=== PATIENT | male | born 1960 | race Caucasian/White ===

== ENCOUNTER → 2016-07-06 | Outpatient (CLI) | payer MEDICARE, MEDICAID ==
[~2016-07-06] MED LIST: /ADVA50050 IN; /ADVA50050 INH; /DULO30CA PO; /PANT40TA OR; /ROPI1TA PO; /TIOT18INH INH; /WARF5TA PO; ACET65TA OR; ADV250INH INH; ALBUTEROL LIQ INH; AMBI10TA OR; AMIT100T PO; ASPI81TA45 OR; ASTELIN; ATEN50TA2 OR; ATEN50TA2 PO; BABY81CH OR; BISO10TA2 PO; CLOTPOW TOP; COMBIN INH; COMBVENT; COMBVENT INH; COUM10TA OR; COUM7.5T PO; DUONSOL IN; DUONSOL INH; ENOX15SY SC; FOLI1TAB OR; FOLI1TAB86 PO; GEOD60CA OR; GEOD60CA PO; LASI40TA OR; LIDO5DIS TOP; LYRI200C OR; NAPR500T OR; NASONEX; NIAC500T OR; NIAS500T2 PO; NICO21DI4 TD; NITR0.4S SL; REME30TA OR; REQU2TAB3 PO; ROBA750T PO; SUDA30TA PO; TALWIN NX PO; TOPI100T OR; TOPI50TA OR; TRAZ100T OR; TYLETAB15 PO; TYLETAB3 OR; ULTR50TA PO; VITA-113 PO; WELL100T OR; ZIPR80CAP OR; ZYBAN PO; ZYPR15TA OR; ZYPR20TA OR; ZYPR20TA PO; coumadin PO
--- NOTE | 2016-07-06 08:52 | REP ---
Clinical: Follow up right middle lobe nodule. Comparison: 12/22/2015, 01/25/2012. Findings: The subtle non solid ground-glass density in the periphery of the right middle lobe (image 62) is essentially unchanged when compared to prior examination. Minimal posterior right upper lobe and left lower lobe subpleural scarring is stable compared to 2012. No further new acute consolidation, nodule or mass lesion is appreciated. No pleural effusion/reaction or pneumothorax. No adenopathy. Thoracic aorta, heart and pericardium appear relatively stable/normal. Surrounding musculoskeletal structures are intact. Upper abdomen demonstrates a 4.7 cm left adrenal mass which is predominantly low density and likely represents an adrenal adenoma although in comparison to prior examination is slightly enlarged and now demonstrates a small rounded central focus of soft tissue measuring 16 mm which may reflect small internal hemorrhage. Impression: 1. Non solid ground-glass density in the periphery of the right middle lobe remains stable and likely represents scarring. A 6-12 month follow-up may be warranted. No further acute mediastinal or pleuroparenchymal process appreciated. 2. The left adrenal adenoma has increased in size and now demonstrates a 1.6 cm central soft tissue component which may reflect internal hemorrhage. Consider 3-month follow-up pre and postcontrast CT of the abdomen. Signed by Nik Syed MD 07/06/2016 08:43 A
== END ==
LOC: M RAD 07:55
PROVIDERS: ATTEND Nurse Practitioner Family
DX: R91.1 Solitary pulmonary nodule (principal); E27.9 Disorder of adrenal gland, unspecified
CPT/HCPCS: 71250; G0463

== ENCOUNTER → 2016-09-30 | Outpatient (CLI) | payer MEDICARE, MEDICAID ==
[~2016-09-30] MED LIST changes: +ISOVUE-370 76% 100ML VIAL (Q9967) As Ordered ONE
--- NOTE | 2016-09-30 15:02 | REP ---
Clinical: Left adrenal mass for follow up. Technique: Axial precontrast, arterial, venous, and delayed phase images of the abdomen using 100 ml Isovue 370 intravenous contrast material with coronal and sagittal re-formations. Comparison: Multiple prior examinations dating through 2007. Findings: The left adrenal lesion measures approximately 5.1 by 3.6 by 4.8 cm and the subtle central area of increased density remains stable from noncontrast through delayed imaging sequences and the majority of the lesion remains low density measuring fat/fluid density by Hounsfield evaluation. Findings are compatible with known benign adrenal adenoma which may have had prior central hemorrhagic component. Liver, spleen, pancreas, gallbladder, right adrenal gland and bilateral kidneys are normal. Visualized portions of the small large bowel are unremarkable. No ascites. No free air. No obvious adenopathy. Musculoskeletal structures are intact. Lung bases are clear. Impression: Known benign left adrenal adenoma remains stable compared to prior examination, and in the absence of symptoms requires no further evaluation. Signed by Nik Syed MD 09/30/2016 02:53 P
== END ==
LOC: M RAD 13:33
PROVIDERS: ATTEND Family Medicine
DX: R93.5 Abnormal findings on diagnostic imaging of other abdominal regions, including retroperitoneum (principal)
CPT/HCPCS: 74170; Q9967

== ENCOUNTER 2016-11-01 17:14 | Emergency (ER) | payer MEDICARE, MEDICAID ==
[~2016-11-01] VITALS: Ht 177.8 cm; Wt 119.8 kg
[~2016-11-01 17:14] MED LIST changes: -ISOVUE-370 76% 100ML VIAL (Q9967) As Ordered ONE; +LYRI200C PO
[2016-11-01] MEDS ORDERED: XARE20TA PO (17:40)
[2016-11-01] MEDS ORDERED: BREO1INH3 INH (17:40)
[2016-11-01] MEDS ORDERED: BUPR15TA PO (17:40)
[2016-11-01] MEDS ORDERED: ASPI1TAB15 PO (17:40)
[2016-11-01] MEDS ORDERED: NIAC1TAB PO (17:40)
[2016-11-01] MEDS ORDERED: SERT-138 PO (17:40)
[2016-11-01] MEDS ORDERED: INVE234I IM (17:40)
[2016-11-01] MEDS ORDERED: ATOR40TA75 PO (17:40)
--- NOTE | 2016-11-01 18:20 | REPUSA ---
CT of the lumbar spine without contrast Clinical history: Pain. Technique: Multiple axial CT images were obtained through the lumbar spine without administration of contrast. Coronal and sagittal 3-D reconstructed images were also obtained. Findings: The lumbar vertebral bodies are in satisfactory positioning and alignment. No fractures or dislocatio ns are demonstrated. Intervertebral disc spaces are well-maintained. There is no evidence of facet lwo bluxation. The neural foramen appear grossly patent. The spinal canal demonstrates normal caliber and contour without evidence of spinal stenosis. The surrounding soft tissues are within normal limits. Impression: Unremarkable CT examination of the lumbar spine.
[2016-11-01] MEDS ORDERED: PRED20TA PO (19:01)
[2016-11-01] MEDS ORDERED: ROBA500T PO (19:01)
[2016-11-01 19:06] VITALS: BP 131/81
== END 2016-11-01 19:08 | disposition home or self-care (01) ==
LOC: M ED 18:21
DX: M54.41 Lumbago with sciatica, right side (principal); I10 Essential (primary) hypertension; E78.00 Pure hypercholesterolemia, unspecified; J45.909 Unspecified asthma, uncomplicated; F41.9 Anxiety disorder, unspecified; F31.9 Bipolar disorder, unspecified; K57.90 Diverticulosis of intestine, part unspecified, without perforation or abscess without bleeding; F17.200 Nicotine dependence, unspecified, uncomplicated; Z95.1 Presence of aortocoronary bypass graft; Z86.718 Personal history of other venous thrombosis and embolism; Z86.69 Personal history of other diseases of the nervous system and sense organs; Z79.82 Long term (current) use of aspirin; Z79.899 Other long term (current) drug therapy; Z88.5 Allergy status to narcotic agent; Z91.041 Radiographic dye allergy status

== ENCOUNTER 2016-12-21 14:24 | Inpatient (IN) | payer MEDICARE, MEDICAID ==
[~2016-12-21] VITALS: Ht 175.3 cm; Wt 119.6 kg
[~2016-12-21 14:24] MED LIST changes: +ASPI1TAB15 PO; +ATOR40TA75 PO; +BREO1INH3 INH; +BUPR15TA PO; +INVE234I IM; +NIAC1TAB PO; +PRED20TA PO; +ROBA500T PO; +SERT-138 PO; +XARE20TA PO
[2016-12-21] MEDS ORDERED: ASPIRIN 81 MG CHEW TABLET PO ONE (15:45)
[2016-12-21 15:47] LABS: BASO # 0.1 K/mm3 (0.0-0.2); BASO % 1.2 % (0.0-1.0); EOS # 0.2 K/mm3 (0.0-0.50); LARGE UNSTAINED CELL # 0.2 K/mm3 (0.0-0.4); LARGE UNSTAINED CELL % 1.9 % (0.0-4.0); LYMPH # 2.4 K/mm3 (1.5-4.5); LYMPH % 25.4 % (24.0-44.0); MEAN CORPUSCULAR HEMOGLOBIN 31.4 pg (27.0-33.0); MEAN CORPUSCULAR HGB CONC 33.7 g/dl (32.0-36.5); MEAN CORPUSCULAR VOLUME 93.3 fl (80.0-96.0); MONO # 0.5 K/mm3 (0.0-0.8); MONO % 5.8 % (0.0-5.0); NEUTROPHILS # 5.9 K/mm3 (1.8-7.7); NEUTROPHILS % 63.6 % (36.0-66.0); PLATELET COUNT, AUTOMATED 185 k/mm3 (150-450); RED CELL DISTRIBUTION WIDTH 13.5 % (11.5-14.5); WHITE BLOOD COUNT 9.2 K/mm3 (4.0-10.0)
[2016-12-21] MEDS: NITROGLYCERIN 0.4 MG SUBL TABLET SL PRN ×3 (15:56→16:35)
[2016-12-21 15:57] LABS: ALBUMIN 3.5 GM/DL (3.2-5.2); ALBUMIN/GLOBULIN RATIO 0.83 (1.00-1.93); ALKALINE PHOSPHATASE 127 U/L (45-117); ALT/SGPT 20 U/L (12-78); ANION GAP 7 MEQ/L (8-16); AST/SGOT 18 U/L (15-37); BILIRUBIN,DIRECT < 0.1 MG/DL (0.0-0.2); BILIRUBIN,TOTAL 0.3 MG/DL (0.2-1.0); BLOOD UREA NITROGEN 6 MG/DL (7-18); CALCIUM LEVEL 9.1 MG/DL (8.5-10.1); CARBON DIOXIDE LEVEL 27 MEQ/L (21-32); CHLORIDE LEVEL 105 MEQ/L (98-107); GLOMERULAR FILTRATION RATE > 60.0 (>56); GLUCOSE, FASTING 91 MG/DL (70-105); POTASSIUM SERUM 3.8 MEQ/L (3.5-5.1); SODIUM LEVEL 139 MEQ/L (136-145); TOTAL PROTEIN 7.7 GM/DL (6.4-8.2)
--- NOTE | 2016-12-21 16:26 | REP ---
PA and lateral chest: Comparison is 02/03/2015. The lung ballesteros are clear. The cardiac size is normal The joanne, mediastinum, and bony thorax are unremarkable. Impression: Negative PA and lateral chest. There is no interval change. Signed by Alvaro Crouch MD 12/21/2016 04:17 P
[2016-12-21] MEDS ORDERED: MORPHINE 4 MG/ML 1ML SYRINGE IV ONE (17:00)
[2016-12-21] MEDS ORDERED: RIVAROXABAN 20 MG TAB (XARELTO) PO ONE (17:00)
[2016-12-21] MEDS ORDERED: RIVAROXABAN 20 MG TAB (XARELTO) PO SCH (18:00)
[2016-12-21] MEDS ORDERED: IPRATROPIUM 0.5MG/ALBUTEROL 2.5MG INH SOL UD 3ML (DUONEB)(J7620) NEB ONE (20:30)
--- NOTE | 2016-12-21 20:34 | ECGEPIP ---
Stationary ECG Study [facility] - ED Test Date: 2016-12-21 Pat Name: CORBY HILL Department: Room: - Gender: M I O Psychologist: mercy : 1960 Requested By: ABRAHAM Martinez Order Number: [id number] Reading MD: Javid Stroud Measurements Intervals [place] Rate: 97 P: 17 GA: 152 QRS: -24 QRSD: 115 T: 26 QT: 353 QTc: 449 Interpretive Statements SINUS RHYTHM BORDERLINE LEFT AXIS DEVIATION LOW QRS VOLTAGE IN PRECORDIAL LEADS INCOMPLETE RIGHT BUNDLE BRANCH BLOCK NONSPECIFIC T-WAVE ABNORMALITY CW 06/27/13 RATE INCREASED Electronically Signed On 12-21-2016 20:34:05 EDT by Javid Stroud
--- NOTE | 2016-12-21 20:41 | ECGEPIP ---
Stationary ECG Study [facility] - ED Test Date: 2016-12-21 Pat Name: CORBY HILL Department: Room: - Gender: M Template Reproduction Technician: kenneth : 1960 Requested By: ABRAHAM Martinez Order Number: [id number] Reading MD: Javid Stroud Measurements Intervals [place] Rate: 71 P: 16 DC: 152 QRS: -17 QRSD: 117 T: 7 QT: 404 QTc: 439 Interpretive Statements SINUS RHYTHM LOW QRS VOLTAGE IN PRECORDIAL LEADS INCOMPLETE RIGHT BUNDLE BRANCH BLOCK LEFTWARD AXIS DELAYED R WAVE PROGRESSION NONSPECIFIC ST T WAVE CHANGES CW 12/21/16 RATE DEREASED Electronically Signed On 12-21-2016 20:41:02 EDT by Javid Stroud
[2016-12-21] MEDS ORDERED: ASPIRIN 81 MG ENTERIC TAB PO SCH (21:00)
[2016-12-21] MEDS ORDERED: ONDANSETRON 4MG/2ML VIAL (J2405) IV PRN (22:30)
[2016-12-21] MEDS ORDERED: ACETAMINOPHEN TAB 650MG DOSE (2X325MG) PO PRN (22:30)
[2016-12-21] MEDS ORDERED: LYRI300C PO (23:09)
[2016-12-21] MEDS ORDERED: COMBAER6 INH (23:09)
[2016-12-21] MEDS ORDERED: INCR1INH INH (23:09)
[2016-12-21] MEDS ORDERED: NITR4TASL SL (23:09)
[2016-12-21] MEDS ORDERED: ASPI81TAEC PO (23:09)
[2016-12-21] MEDS ORDERED: MIRT15TA3 PO (23:09)
[2016-12-21] MEDS ORDERED: FOLI1TAB4 PO (23:09)
[2016-12-21] MEDS ORDERED: ROPI2TAB PO (23:09)
[2016-12-21] MEDS ORDERED: FURO40TA2 PO (23:09)
[2016-12-21] MEDS ORDERED: SUCRALFATE 1 GM TAB PO ONE (23:15)
[2016-12-21] MEDS ORDERED: PANTOPRAZOLE 40MG TAB (PROTONIX) PO ONE (23:15)
[2016-12-21] MEDS ORDERED: rOPINIRole 1MG TAB PO PRN (23:30)
[2016-12-22] VITALS (8 sets, daily range): BP systolic 118–152; BP diastolic 58–99
[2016-12-22] MEDS: ATORVASTATIN 20 MG TAB PO SCH ×2 (00:31→20:29)
[2016-12-22] MEDS: PREGABALIN 100 MG CAP (LYRICA) PO SCH ×3 (00:32→20:28)
[2016-12-22] MEDS: SERTRALINE 100 MG TAB PO SCH ×2 (00:34→20:30)
[2016-12-22] MEDS: MIRTAZAPINE 15 MG TAB PO SCH ×2 (00:47→20:30)
[2016-12-22] MEDS: NITROGLYCERIN 0.4 MG SUBL TABLET SL PRN ×3 (01:16→01:32)
[2016-12-22] MEDS: NIACIN SR (NIASPAN) 500 MG TAB PO SCH ×2 (01:37→20:28)
[2016-12-22] MEDS: MORPHINE 2 MG/ML 1ML SYRINGE IV PRN ×4 (03:03→20:27)
--- NOTE | 2016-12-22 03:15 | HPE ---
DATE OF ADMISSION: 12/21/2016 PRIMARY CARE PROVIDER: Janes Hickman MD. LINE SERVICER: Dr. Romero Inpatient [facility] Provider: Dr. Toña Wilde CHIEF COMPLAINT: Chest pain. HISTORY OF PRESENT ILLNESS: 56-year-old male, past medical history significant for coronary artery disease (CAD), myocardial infarction (AR), follows at the [facility] with Dr. Romero, chronic obstructive pulmonary disease (COPD), follows with Dr. Reyes, obstructive sleep apnea (JOANNE) on continuous positive airway pressure (CPAP),hypertension,GERD, obesity, fasting glucose intolerance, hypercholesterolemia, tobacco abuse, recurrent polysubstance abuse including marijuana, cocaine, crack cocaine, heroin, ecstasy, prescription opioids, b/l pulmonary embolism 2011 on chronic anticoagulation, presents to the emergency room with 2-day complaint of substernal left-sided chest pain radiating down the left arm lasting for hours, shortness of breath, while patient was sitting at home after having coffee,described as as sharp across the epigastrium, pleuritic, nonexertional, and reproducible, lasting all day long without diaphoresis, feeling of impending doom, fever, chills, paroxysmal nocturnal dyspnea (PND), orthopnea, or changes in weight. No meds were taken at home for this pain, and adamantly denies taking over the counter meds, cocaine, crack, or any other recreational drugs prior to presentation. Per hospital records, previous coronary angiogram 2013 was unremarkable, and per the patient, more recent cath done in the past 1-2 yrs shows no sigificant change. He admits to chronic heartburn, and has been on aspirin since his AR years ago, and chronic anticoagulation for his bilateral pulmonary embolism (PE) since 2011, but denies any dysphagia or odynophagia, weight gain or weight loss. He admits having occasional black tarry stools with normal hemoglobin., but has refused colonoscopy in the past. Despite having a history of alcohol abuse, he denies hematemesis, bright red blood per rectum. In the ER, patient had some relief with nitroglycerin and morphine, but sharp pains are persistent with no acute ischemia on EKG only right bundle branch block, sinus rhythm, ventricular rate of 71 and negative troponins x 2 sets. Chest x-ray has no acute changes, no infiltrates, consolidation, edema or pleural effusions. Hospitalist service was asked to admit for evaluation of chest pain and observation on telemetry overnight. PAST MEDICAL HISTORY: 1. Pulmonary embolism. 2. Left adrenal adenoma. 3. L3, L4 disc bulges with mild central canal stenosis at L4-L5. 4. Obstructive sleep apnea on CPAP. 5. CAD, AR. 6. PE 2011. 7. Chronic back pain. 8. Hypertension. 9. Reflux. 10. Diverticulosis. 11. RLS. 12. Obesity. 13. Fasting glucose intolerance. 14. Hypercholesterolemia. 15. Recurrent polysubstance abuse with marijuana, cocaine, heroin, ecstasy, prescription opioids. 16. Diverticulitis. 17. Depression. 18. Folic acid deficiency. ALLERGIES: CONTRAST causing respiratory distress. PAST SURGICAL HISTORY: 1. Appendectomy. 2. Tonsillectomy. 3. Right inguinal herniorrhaphy. 4. Right lower extremity thrombectomy. 5. Refused colonoscopy. FAMILY HISTORY: Father alive age 82 with hypertension, hyperlipidemia, CAD, AR, CVA. Mother alive age 75 with hypertension, RLS, edema, lipids. Seven sisters, one with cervical cancer, others are healthy. Three brothers, one at 22 months. SOCIAL HISTORY: Smoker, tried to quit 05/13/2016. History of alcohol abuse and recreational drug use, none in the past few months. HOME MEDICATIONS: - Combivent Respimat 20/100 mcg two puffs inhaled four times a day as needed - aspirin 81 mg daily - atorvastatin 40 mg nightly - bupropion Wellbutrin SR 150 mg twice a day - folic acid 1 mg daily - Lasix 40 mg twice a day - mirtazapine 15 mg nightly - niacin 500 mg nightly - nitroglycerin 0.4 mg as needed for chest pain - Lyrica 300 mg twice a day - Xarelto 20 mg every evening - ropinirole 2 mg tablets as needed for restlessness - sertraline 100 mg nightly - Breo Ellipta one puff inhaled daily - Incruse Ellipta 62.5 mcg inhaled daily REVIEW OF SYSTEMS: 12 point systems review obtained. positive findings per HPI. PHYSICAL EXAMINATION: VITAL SIGNS: Temperature 98, pulse 86, respiratory rate 16, blood pressure 131/87, 97% on room air. GENERAL: Patient is awake, alert, oriented times three, answering questions appropriately. Anicteric sclerae. No jaundice. Pupils equally round, reactive to light, accomodation. Extraocular muscles are intact. Normocephalic, atraumatic. Moist mucous membranes. No cervical lymphadenopathy or thyromegaly or pharyngeal erythema. LUNGS: Clear to auscultation. No wheezing, rales or rhonchi. HEART: S1, S2, sinus rhythm. No murmurs, rubs or gallops. ABDOMEN: Soft. Positive bowel sounds times four quadrants. Obese abdomen. Slightly tender epigastric area. Palpable tenderness left anterior chest. EXTREMITIES: No cyanosis or clubbing. SKIN: Warm, dry, well perfused, multiple tattoos bilateral upper and lower extremities. EKG sinus rhythm, ventricular rate of 71, right bundle branch block, which is chronic. LABORATORY DATA: White count 9.2, hemoglobin 15, hematocrit 44, platelet count 185, 63% neutrophils. Sodium 139, potassium 3.8, chloride 105, bicarbonate 27, BUN 6, creatinine 1, glucose 91, calcium 9.1 total bilirubin 0.3, direct bilirubin less than 0.1, AST 18, ALT 20, alkaline phosphatase 127 total CK 99, MB fraction 1, troponin less than 0.02. Repeat cardiac markers total CK of 78, MB fraction 1, troponin less than 0.02, BNP 7.8, total protein 7.7, albumin 3.5, lipase of 123. IMAGING STUDIES: Chest x-ray negative PA and lateral chest. There is no interval change. ASSESSMENT AND PLAN: This is a 56-year-old male with history of pulmonary embolism on chronic Xarelto, coronary artery disease (CAD), myocardial infarction (AR), chronic back pain, chronic obstructive pulmonary disease (COPD), obstructive sleep apnea (JOANNE) on continuous positive airway pressure (CPAP), hypertension, reflux, diverticulosis, diverticulitis, restless legs syndrome (RLS), obesity, fasting glucose intolerance, left adrenal adenoma, hypercholesterolemia, tobacco abuse, recurrent polysubstance abuse with marijuana, cocaine, heroin, ecstasy, prescription opioids, presents to the emergency room with a 2-day history of sharp pleuritic chest pain across the epigastric region, left anterior chest while drinking his coffee. Appears to be pleuritic. The patient will be admitted for observation and will be assigned to Dr. Toña Salter who will assume care of this patient on 12/22/2016 at 7 a.m. for the following issues: 1. Atypical chest pain. Patient's chest pain by history does not appear to be typical of anginal symptoms. He describes pleuritic chest pain, sharp, worse with meals with prior history of reflux disease and currently with risk factors of aspirin and chronic anticoagulation with Xarelto for his chronic pulmonary embolism (PE). Suspicious for possible gastrointestinal (GI) etiology. Patient has been compliant with his medications. Unlikely to be secondary to pulmonary embolism. However, with prior history of CAD/AR, will admit to telemetry for 24-hour monitoring. Continue with his aspirin, Lipitor. Currently not on beta blockers. Will obtain records from Dr. Romero's office, [facility]. Most likely secondary due to COPD. Rule out GI causes with upper GI series in the morning. Therefore, nothing by mouth after midnight. Empiric treatment with proton pump inhibitor (PPI), Protonix 40 twice a day and Carafate. Check Helicobacter (H) pylori antibodies. Patient is at risk for gastritis due to prior history of alcohol and current use of anticoagulation, but has refused colonoscopy and esophagogastroduodenoscopy (EGD) in the past. 2. History of CAD/AR. Obtain records from Dr. Romero's office regarding medication list. Resume all home medications. Cycle cardiac markers. 12-lead EKG in the morning. Continue on telemetry. Nitroglycerin as needed for recurrent chest pains. 3. COPD. Continue home inhalers. On Breo Ellipta and Incruse Ellipta. 4. Obstructive sleep apnea. May resume CPAP at home settings. 5. Obesity, outpatient mgt. continue statins and check lipid panel 6. History of bilateral pulmonary embolism (PE). Continue on anticoagulation with Xarelto. Patient has been compliant. 7. History of left adrenal adenoma. Outpatient followup. 8. Chronic neck and back pain. Obtain x-rays. Monitor clinically. Outpatient followup with pain specialist. 9. Depression. Continue Wellbutrin. 10. HTN, controlled.on no beta blockers . obtain records from Primary care physician. 11. History of recreational drug use with crack, cocaine, marijuana, and opioid use. Patient currently denies recreational drug use. Check Urine toxicology screen. Avoid beta blockers if positive for cocaine. 12. History of ETOH abuse. last drink was years ago. DVT prophylaxis: on chronic xarelto for bilateral PE. Patient will be signed out to Dr. Toña Wilde at 0700 12/22/16 [facility]. [facility]
[2016-12-22 05:41] LABS: BASO # 0.1 K/mm3 (0.0-0.2); BASO % 0.9 % (0.0-1.0); EOS # 0.2 K/mm3 (0.0-0.50); EOS % 2.9 % (0.0-3.0); LARGE UNSTAINED CELL # 0.1 K/mm3 (0.0-0.4); LARGE UNSTAINED CELL % 2.1 % (0.0-4.0); LYMPH # 2.1 K/mm3 (1.5-4.5); LYMPH % 29.5 % (24.0-44.0); MEAN CORPUSCULAR HEMOGLOBIN 30.6 pg (27.0-33.0); MEAN CORPUSCULAR VOLUME 92.8 fl (80.0-96.0); MONO # 0.6 K/mm3 (0.0-0.8); MONO % 9.5 % (0.0-5.0); NEUTROPHILS # 3.6 K/mm3 (1.8-7.7); NEUTROPHILS % 55.1 % (36.0-66.0); PLATELET COUNT, AUTOMATED 198 k/mm3 (150-450); RED CELL DISTRIBUTION WIDTH 13.8 % (11.5-14.5); WHITE BLOOD COUNT 6.6 K/mm3 (4.0-10.0)
[2016-12-22 06:04] LABS: ANION GAP 9 MEQ/L (8-16); BLOOD UREA NITROGEN 8 MG/DL (7-18); CALCIUM LEVEL 8.8 MG/DL (8.5-10.1); CARBON DIOXIDE LEVEL 27 MEQ/L (21-32); CHLORIDE LEVEL 106 MEQ/L (98-107); CREATININE FOR GFR 0.94 MG/DL (0.70-1.30); GLOMERULAR FILTRATION RATE > 60.0 (>56); GLUCOSE, FASTING 113 MG/DL (70-105); POTASSIUM SERUM 3.8 MEQ/L (3.5-5.1); SODIUM LEVEL 142 MEQ/L (136-145)
[2016-12-22 07:32] LABS: METHADONE URINE NEGATIVE (NEGATIVE)
[2016-12-22] MEDS: FUROSEMIDE 40 MG TAB PO SCH ×2 (08:52→20:30)
[2016-12-22] MEDS: SUCRALFATE 1 GM TAB PO SCH ×4 (08:52→20:41)
[2016-12-22] MEDS: buPROPion **SR TABLET** (ZYBAN) 150MG PO SCH ×2 (08:52→20:28)
[2016-12-22] MEDS: PANTOPRAZOLE 40MG TAB (PROTONIX) PO SCH ×2 (08:54→20:29)
[2016-12-22] MEDS: FOLIC ACID 1 MG TAB PO SCH (08:55)
[2016-12-22] MEDS: BREO ELLIPTA INH SCH (09:00)
--- NOTE | 2016-12-22 09:41 | REP ---
Thoracic spine two views: Comparison is 01/14/2012. Vertebral body heights and alignment are normal and unchanged. There is degenerative disc disease at several levels in the mid thoracic spine. The disc spaces are otherwise unremarkable. Mineralization is normal. The pedicles are unremarkable. Signed by Alvaro Crouch MD 12/22/2016 07:40 A
--- NOTE | 2016-12-22 09:41 | REP ---
Cervical spine four views AP and lateral projections: There are no comparisons. 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 The C2-C3 posterior elements are congenitally fused. There is degenerative disc disease at C for five and C5-6. Vertebral body heights and alignment are normal. Facets are normally aligned. Prevertebral soft tissues are normal. The odontoid view is unremarkable. Impression: Degenerative disc disease as described. C2-C3 congenital fusion posteriorly and anteriorly. Signed by Alvaro Crouch MD 12/22/2016 07:39 A
--- NOTE | 2016-12-22 09:54 | IPNPDOC ---
Subjective Date Seen The patient was seen on 12/22/16. Subjective Chief Complaint/HPI The patient is a 56-year-old male admitted with a reason for visit of Chest Pain. Events since last encounter Pt states still with intermittant CP and SOB, although currently improved. Improved with morphine. Denies Abd pain. Constitutional: Denies: Chills, Fever Pulmonary: Reports: Dyspnea Cardiovascular: Reports: Chest Pain Gastrointestinal: Denies: Nausea, Vomiting, Abdominal Pain Objective Physical Examination General Exam: Positive: Alert, No Acute Distress Neck Exam: Positive: Supple, Negative: JVD Chest Exam: Positive: Clear to auscultation, Other (diffuse tenderness to palpation lower chest L>R) Heart Exam: Positive: Rate Normal, Regular Rhythm Abdomen Exam: Positive: Normal bowel sounds, Soft, Negative: Tenderness Extremity Exam: Negative: Edema Assessment /Plan Problems (1) Chest pain Status: Acute Problem Specific Plan: Monitor Clinically, Repeat Labs Problem Text: 12/22 - H/O CAD/MD. Cardiac enzymes/Trops negative. On Telemetry. On Aspirin and Lipitor. H/O PE. On Xarelto. H/O reflux. Upper GI was ordered. Getting Protonix 40 mg BID and Carafate QID. (2) CAD (coronary artery disease) Status: Chronic Problem Specific Plan: Monitor Clinically, Repeat Labs Problem Text: 12/22 - H/O CAD/MD. Cardiac enzymes/Trops negative. On Telemetry. On Aspirin and Lipitor. (3) Hx pulmonary embolism Status: Chronic Problem Specific Plan: Monitor Clinically, Repeat Labs Problem Text: 12/22 - H/O PE. On Xarelto. (4) COPD (chronic obstructive pulmonary disease) Status: Chronic Problem Specific Plan: Monitor Clinically Problem Text: On Breo and Incruse. (5) JOANNE (obstructive sleep apnea) Status: Chronic Problem Specific Plan: Monitor Clinically Problem Text: CPAP (6) Depression Status: Chronic Problem Specific Plan: Monitor Clinically Problem Text: On Wellbutrin and Zoloft. (7) Adrenal adenoma Status: Chronic Problem Specific Plan: Monitor Clinically (8) HTN (hypertension) Status: Chronic Problem Specific Plan: Monitor Clinically Problem Text: On Lasix (9) H/O: substance abuse Status: Chronic Problem Specific Plan: Monitor Clinically Plan/VTE VTE Prophylaxis Ordered?: Yes VS, I&O, 24H, Fishbone Vital Signs/I&O Vital Signs Date Time Temp Pulse Resp B/P (MAP) Pulse Ox O2 Delivery O2 Flow Rate FiO2 12/22/16 08:43 16 Room Air 12/22/16 07:35 97.4 78 133/87 (102) 96 12/22/16 04:45 2.0 I&O- Last 24 Hours up to 6 AM 12/22/16 06:00 Intake Total 0 ml Output Total 550 ml Balance -550 ml Laboratory Data 24H LABS Laboratory Tests 2 12/21/16 14:39: White Blood Count 9.2, Red Blood Count 4.76, Hemoglobin 15.0, Hematocrit 44.4, Mean Corpuscular Volume 93.3, Mean Corpuscular Hemoglobin 31.4, Mean Corpuscular Hemoglobin Concent 33.7, Red Cell Distribution Width 13.5, Platelet Count 185, Neutrophils (%) (Auto) 63.6, Lymphocytes (%) (Auto) 25.4, Monocytes ( %) (Auto) 5.8H, Eosinophils (%) (Auto) 2.0, Basophils (%) (Auto) 1.2H, Neutrophils # (Auto) 5.9, Lymphocytes # (Auto) 2.4, Monocytes # (Auto) 0.5, Eosinophils # (Auto) 0.2, Basophils # (Auto) 0.1, Large Unclassified Cells % 1.9 , Large Unclassified Cells # 0.2, Prothrombin Time 13.3, Prothromb Time International Ratio 1.00, Activated Partial Thromboplast Time 31.5, D-Dimer, Quantitative 307.8, Anion Gap 7L, Glomerular Filtration Rate > 60.0, Calcium Level 9.1, Aspartate Amino Transf (AST/SGOT) 18, Alanine Aminotransferase (ALT/ SGPT) 20, Alkaline Phosphatase 127H, Total Bilirubin 0.3, Direct Bilirubin < 0.1 , Total Creatine Kinase 99, Creatine Kinase MB 1.0, Creatine Kinase MB Relative Index 1.01, Troponin I < 0.02, B-Type Natriuretic Peptide 7.8, Total Protein 7.7 , Albumin 3.5, Albumin/Globulin Ratio 0.83L, Lipase 123 12/21/16 20:24: Total Creatine Kinase 78, Creatine Kinase MB 1.0, Creatine Kinase MB Relative Index 1.28, Troponin I < 0.02 12/22/16 00:21: Total Creatine Kinase 84, Creatine Kinase MB 1.0, Creatine Kinase MB Relative Index 1.19, Troponin I < 0.02 12/22/16 05:16: White Blood Count 6.6, Red Blood Count 4.75, Hemoglobin 14.6, Hematocrit 44.1, Mean Corpuscular Volume 92.8, Mean Corpuscular Hemoglobin 30.6, Mean Corpuscular Hemoglobin Concent 33.0, Red Cell Distribution Width 13.8, Platelet Count 198, Neutrophils (%) (Auto) 55.1, Lymphocytes (%) (Auto) 29.5, Monocytes ( %) (Auto) 9.5H, Eosinophils (%) (Auto) 2.9, Basophils (%) (Auto) 0.9, Neutrophils # (Auto) 3.6, Lymphocytes # (Auto) 2.1, Monocytes # (Auto) 0.6, Eosinophils # (Auto) 0.2, Basophils # (Auto) 0.1, Large Unclassified Cells % 2.1 , Large Unclassified Cells # 0.1, Anion Gap 9, Glomerular Filtration Rate > 60.0 , Calcium Level 8.8, Total Creatine Kinase 75, Creatine Kinase MB 1.4, Creatine Kinase MB Relative Index 1.86, Troponin I < 0.02, Blood Urea Nitrogen 8, Creatinine 0.94, Sodium Level 142, Potassium Level 3.8, Chloride Level 106, Carbon Dioxide Level 27 12/22/16 06:50: Urine Amphetamines Screen NEGATIVE, Urine Benzodiazepines Screen NEGATIVE, Urine Opiates Screen POSITIVEH, Urine Methadone Screen NEGATIVE, Urine Barbiturates Screen NEGATIVE, Urine Phencyclidine Screen NEGATIVE, Urine Cocaine Metabolite Screen NEGATIVE, Urine Cannabinoids Screen NEGATIVE CBC/BMP Laboratory Tests 12/21/16 14:39 Red Blood Count 4.76, Mean Corpuscular Volume 93.3, Mean Corpuscular Hemoglobin 31.4, Mean Corpuscular Hemoglobin Concent 33.7, Red Cell Distribution Width 13.5 , Neutrophils (%) (Auto) 63.6, Lymphocytes (%) (Auto) 25.4, Monocytes (%) (Auto ) 5.8 H, Eosinophils (%) (Auto) 2.0, Basophils (%) (Auto) 1.2 H, Neutrophils # ( Auto) 5.9, Lymphocytes # (Auto) 2.4, Monocytes # (Auto) 0.5, Eosinophils # (Auto ) 0.2, Basophils # (Auto) 0.1 12/22/16 05:16 Red Blood Count 4.75, Mean Corpuscular Volume 92.8, Mean Corpuscular Hemoglobin 30.6, Mean Corpuscular Hemoglobin Concent 33.0, Red Cell Distribution Width 13.8 , Neutrophils (%) (Auto) 55.1, Lymphocytes (%) (Auto) 29.5, Monocytes (%) (Auto ) 9.5 H, Eosinophils (%) (Auto) 2.9, Basophils (%) (Auto) 0.9, Neutrophils # ( Auto) 3.6, Lymphocytes # (Auto) 2.1, Monocytes # (Auto) 0.6, Eosinophils # (Auto ) 0.2, Basophils # (Auto) 0.1, Calcium Level 8.8, Total Creatine Kinase 75 Reid Montejo RPA-Mera Dec 22, 2016 09:54
[2016-12-22 11:08] LABS: CONTROL LINE HPYORI INT CTR LINE PRESENT
[2016-12-22] MEDS ORDERED: E-Z-GAS II EFFERVESCENT PACKET (SODIUM BICARB./CITRIC ACID/SIMETHICONE) As Ordered ONE (13:02)
[2016-12-22] MEDS ORDERED: E-Z-PAQUE 96% w/w SUSP 176GM BTL As Ordered ONE (13:02)
[2016-12-22] MEDS ORDERED: E-Z-HD 98% w/w 340GM SUSP BTL As Ordered ONE (13:02)
[2016-12-22] MEDS ORDERED: ALBUTEROL SULFATE 2.5 MG/0.5 ML INH NEB SOLN NEB PRN (16:45)
[2016-12-22] MEDS ORDERED: RIVAROXABAN 20 MG TAB (XARELTO) PO SCH (18:00)
--- NOTE | 2016-12-22 19:09 | REP ---
UPPER GI, AIR CONTRAST AND SMALL BOWEL FOLLOW THROUGH: The procedure was performed under the direct supervision of Dr. Oleary. The images were reviewed with Dr. Oleary. The hand mixer film shows no organomegaly or pathological masses. The intestinal gas pattern is nonspecific. Liquid barium and gas-producing granules were given in the erect position as well as liquid barium in the prone oblique positions in order to perform a double contrast upper GI examination. Additionally, liquid barium was given at the end of the examination in order to perform a small bowel follow through. The oral and pharyngeal stages of deglutition are unremarkable. Esophageal transport is prompt and efficient and there is no esophagitis, stricture, mucosal ring or hiatal hernia. Gastroesophageal reflux is not demonstrated on this examination. The stomach galloway are normally outlined. The rugal folds are smooth and regular. There is no gastritis, neoplasm or ulcer disease. The duodenal galloway are normally outlined. The mucosal folds are smooth and regular. There is no duodenitis, pancreatitis, peptic ulcer disease or neoplasm. The visualized portion of the proximal small bowel appears normal in course and caliber. The barium column was followed through the small bowel to the level of the terminal ileum. Small bowel transit time was approximately 30 minutes. During fluoroscopy, gentle palpation shows all loops are freely movable and pliable. There are no fixed or angulated loops. The small bowel mucosal pattern is normal in course and caliber. There is no transition to suggest a partial small bowel obstruction. Spot filming of the terminal ileum shows it to be unremarkable. IMPRESSION: Essentially unremarkable double contrast upper GI and small bowel follow through examination. 2 minutes and 45 seconds of fluoroscopy time was utilized for this procedure. Reviewed by LOUISA Morrow 12/23/2016 05:11 PEdited and Signed by Alvaro Oleary MD 12/23/2016 05:21 P
[2016-12-22] MEDS: LIDOCAINE 5% (LIDODERM) PATCH TD SCH (20:28)
[2016-12-22] MEDS: ASPIRIN 81 MG ENTERIC TAB PO SCH (20:29)
[2016-12-22] MEDS: predniSONE 50 MG TAB PO SCH (21:18)
--- NOTE | 2016-12-22 21:44 | ECGEPIP ---
Stationary ECG Study [facility] Test Date: 2016-12-22 Pat Name: CORBY HILL Department: Room: [place] [address] Gender: M Wash Barrel Leader: MARY : 1960 Requested By: CHERRY Hernandez Order Number: [id number] Reading MD: Anupam Arreola Measurements Intervals [place] Rate: 79 P: 20 SD: 155 QRS: -14 QRSD: 115 T: 18 QT: 389 QTc: 448 Interpretive Statements SINUS RHYTHM LEFT AXIS DEVIATION INTRAVENTRICULAR CONDUCTION DELAY/RIGHT BUNDLE BRANCH BLOCK PATTERN LOW-VOLTAGE QRS COMPLEXES IN THE CHEST LEADS LAST TRACING ON 12/21/2016 AT 20:23:10, NO SIGNIFICANT CHANGES Electronically Signed On 12-22-2016 21:44:12 EDT by Anupam Arreola
[2016-12-23] MEDS: MORPHINE 2 MG/ML 1ML SYRINGE IV PRN ×4 (00:58→21:31)
[2016-12-23] MEDS: predniSONE 50 MG TAB PO SCH ×2 (03:51→10:35)
[2016-12-23 04:00] VITALS: BP 117/80
[2016-12-23 05:37] LABS: BASO % 0.6 % (0.0-1.0); EOS % 0.5 % (0.0-3.0); LARGE UNSTAINED CELL # 0.1 K/mm3 (0.0-0.4); LARGE UNSTAINED CELL % 0.7 % (0.0-4.0); LYMPH # 0.9 K/mm3 (1.5-4.5); LYMPH % 12.1 % (24.0-44.0); MEAN CORPUSCULAR HGB CONC 32.8 g/dl (32.0-36.5); MEAN CORPUSCULAR VOLUME 94.6 fl (80.0-96.0); MONO # 0.2 K/mm3 (0.0-0.8); MONO % 3.1 % (0.0-5.0); NEUTROPHILS # 5.6 K/mm3 (1.8-7.7); NEUTROPHILS % 82.9 % (36.0-66.0); PLATELET COUNT, AUTOMATED 185 k/mm3 (150-450); RED CELL DISTRIBUTION WIDTH 13.7 % (11.5-14.5); WHITE BLOOD COUNT 6.7 K/mm3 (4.0-10.0)
[2016-12-23 05:48] LABS: ANION GAP 5 MEQ/L (8-16); BLOOD UREA NITROGEN 13 MG/DL (7-18); CALCIUM LEVEL 8.8 MG/DL (8.5-10.1); CARBON DIOXIDE LEVEL 28 MEQ/L (21-32); CHLORIDE LEVEL 107 MEQ/L (98-107); CREATININE FOR GFR 1.03 MG/DL (0.70-1.30); GLOMERULAR FILTRATION RATE > 60.0 (>56); GLUCOSE, FASTING 133 MG/DL (70-105); SODIUM LEVEL 140 MEQ/L (136-145)
[2016-12-23 05:49] LABS: POTASSIUM SERUM 5.4 MEQ/L (3.5-5.1)
[2016-12-23 08:00] VITALS: BP 137/87
[2016-12-23] MEDS ORDERED: SLF 3 ML SYR IV PRN (08:45)
[2016-12-23] MEDS: buPROPion **SR TABLET** (ZYBAN) 150MG PO SCH ×2 (09:00→21:29)
[2016-12-23] MEDS ORDERED: diphenhydrAMINE 50 MG CAP PO ONE (09:00)
[2016-12-23] MEDS: **NOTE PATIENT COMMENT** MISC XX SCH (09:00)
[2016-12-23] MEDS ORDERED: INCRUSE ELLIPTA (PATIENT'S OWN MED) INH SCH (09:00)
[2016-12-23] MEDS: SUCRALFATE 1 GM TAB PO SCH ×4 (09:12→21:29)
[2016-12-23] MEDS: PANTOPRAZOLE 40MG TAB (PROTONIX) PO SCH ×2 (09:12→21:28)
[2016-12-23] MEDS: FUROSEMIDE 40 MG TAB PO SCH ×2 (09:13→21:00)
[2016-12-23] MEDS: PREGABALIN 100 MG CAP (LYRICA) PO SCH ×2 (09:14→21:29)
[2016-12-23] MEDS: FOLIC ACID 1 MG TAB PO SCH (09:14)
[2016-12-23] MEDS: BREO ELLIPTA INH SCH (09:38)
--- NOTE | 2016-12-23 11:30 | IPNPDOC ---
Subjective Date Seen The patient was seen on 12/23/16. Subjective Chief Complaint/HPI The patient is a 56-year-old male admitted with a reason for visit of Chest Pain. Events since last encounter denies further CP. going to CT chest to r/o PE this morning. Constitutional: Denies: Chills, Fever, Night Sweats ENT: Denies: Head Aches, Ear Pain, Dysphagia Pulmonary: Denies: Dyspnea, Cough Cardiovascular: Denies: Chest Pain, Palpitations, Orthopnea, Paroxysmal Noc. Dyspnea, Lt Headedness Gastrointestinal: Denies: Nausea, Vomiting, Abdominal Pain, Diarrhea, Constipation Genitourinary: Denies: Dysuria, Frequency, Incontinence, Retention Psych: Reports: Mood Normal, Denies: Depression, Memory Issues Objective Physical Examination General Exam: Positive: Alert, No Acute Distress Neck Exam: Positive: Supple, Negative: JVD Chest Exam: Positive: Clear to auscultation, Other (diffuse tenderness to palpation lower chest L>R) Heart Exam: Positive: Rate Normal, Regular Rhythm Telemetry: Positive: No significant arrhythmia Abdomen Exam: Positive: Normal bowel sounds, Soft, Negative: Tenderness Extremity Exam: Negative: Edema Assessment /Plan Problems (1) Chest pain Status: Acute Problem Specific Plan: Monitor Clinically, Repeat Labs Problem Text: 12/23/16: w/u negative. tele negative for arrhythmia. plan for CT chest to r/o PE. If negative, consider DC home. 12/22 - H/O CAD/MN. Cardiac enzymes/Trops negative. On Telemetry. On Aspirin and Lipitor. H/O PE. On Xarelto. H/O reflux. Upper GI was ordered. Getting Protonix 40 mg BID and Carafate QID. (2) CAD (coronary artery disease) Status: Chronic Problem Specific Plan: Monitor Clinically, Repeat Labs Problem Text: 12/22 - H/O CAD/MN. Cardiac enzymes/Trops negative. On Telemetry. On Aspirin and Lipitor. (3) Hx pulmonary embolism Status: Chronic Problem Specific Plan: Monitor Clinically, Repeat Labs Problem Text: 12/22 - H/O PE. On Xarelto. (4) COPD (chronic obstructive pulmonary disease) Status: Chronic Problem Specific Plan: Monitor Clinically Problem Text: On Breo and Incruse. (5) JOANNE (obstructive sleep apnea) Status: Chronic Problem Specific Plan: Monitor Clinically Problem Text: CPAP (6) Depression Status: Chronic Problem Specific Plan: Monitor Clinically Problem Text: On Wellbutrin and Zoloft. (7) Adrenal adenoma Status: Chronic Problem Specific Plan: Monitor Clinically (8) HTN (hypertension) Status: Chronic Problem Specific Plan: Monitor Clinically Problem Text: On Lasix (9) H/O: substance abuse Status: Chronic Problem Specific Plan: Monitor Clinically Plan/VTE VTE Prophylaxis Ordered?: Yes VS, I&O, 24H, Fishbone Vital Signs/I&O Vital Signs Date Time Temp Pulse Resp B/P (MAP) Pulse Ox O2 Delivery O2 Flow Rate FiO2 12/23/16 08:00 95.8 78 19 137/87 (104) 93 Nasal Cannula 2.0 I&O- Last 24 Hours up to 6 AM 12/23/16 06:00 Intake Total 0 ml Output Total 300 ml Balance -300 ml Laboratory Data 24H LABS Laboratory Tests 2 12/22/16 12:00: Total Creatine Kinase 71, Creatine Kinase MB 1.1, Creatine Kinase MB Relative Index 1.54, Troponin I < 0.02 12/23/16 05:13: White Blood Count 6.7, Red Blood Count 4.52, Hemoglobin 14.0, Hematocrit 42.8, Mean Corpuscular Volume 94.6, Mean Corpuscular Hemoglobin 31.0, Mean Corpuscular Hemoglobin Concent 32.8, Red Cell Distribution Width 13.7, Platelet Count 185, Neutrophils (%) (Auto) 82.9H, Lymphocytes (%) (Auto) 12.1L, Monocytes (%) (Auto) 3.1, Eosinophils (%) (Auto) 0.5, Basophils (%) (Auto) 0.6, Neutrophils # (Auto) 5.6, Lymphocytes # (Auto) 0.9L, Monocytes # (Auto) 0.2, Eosinophils # (Auto) 0.0, Basophils # (Auto) 0.0, Large Unclassified Cells % 0.7 , Large Unclassified Cells # 0.1, Anion Gap 5L, Glomerular Filtration Rate > 60.0, Blood Urea Nitrogen 13#, Creatinine 1.03, Sodium Level 140, Potassium Level 5.4H, Chloride Level 107, Carbon Dioxide Level 28, Calcium Level 8.8 CBC/BMP Laboratory Tests 12/23/16 05:13 Red Blood Count 4.52, Mean Corpuscular Volume 94.6, Mean Corpuscular Hemoglobin 31.0, Mean Corpuscular Hemoglobin Concent 32.8, Red Cell Distribution Width 13.7 , Neutrophils (%) (Auto) 82.9 H, Lymphocytes (%) (Auto) 12.1 L, Monocytes (%) ( Auto) 3.1, Eosinophils (%) (Auto) 0.5, Basophils (%) (Auto) 0.6, Neutrophils # ( Auto) 5.6, Lymphocytes # (Auto) 0.9 L, Monocytes # (Auto) 0.2, Eosinophils # ( Auto) 0.0, Basophils # (Auto) 0.0, Calcium Level 8.8 Suzanne Walker [facility] Dec 23, 2016 11:30
[2016-12-23] MEDS ORDERED: ISOVUE-370 76% 100ML VIAL (Q9967) As Ordered ONE (11:33)
[2016-12-23 12:00] VITALS: BP 157/85
[2016-12-23 12:47] LABS: ANION GAP 8 MEQ/L (8-16); BLOOD UREA NITROGEN 17 MG/DL (7-18); CALCIUM LEVEL 8.9 MG/DL (8.5-10.1); CARBON DIOXIDE LEVEL 29 MEQ/L (21-32); CHLORIDE LEVEL 104 MEQ/L (98-107); CREATININE FOR GFR 0.87 MG/DL (0.70-1.30); GLOMERULAR FILTRATION RATE > 60.0 (>56); GLUCOSE, FASTING 165 MG/DL (70-105); POTASSIUM SERUM 3.9 MEQ/L (3.5-5.1); SODIUM LEVEL 141 MEQ/L (136-145)
--- NOTE | 2016-12-23 13:03 | REP ---
CT of the chest with IV contrast, CT pulmonary angiography: There are no emboli in the pulmonary trunk or central pulmonary arteries. I suspect there are emboli in the right middle lobe pulmonary artery. No other pulmonary emboli are identified. There are no infiltrates or effusions. There is a 7 mm nodule in the lateral segment right middle lobe on image 54, not present on the prior study of 07/06/2016. There is no hilar or mediastinal adenopathy. No axillary adenopathy. The thoracic aorta is unremarkable. Cardiac size is normal. There is a 5 cm left adrenal mass, not significantly changed from a CT of the abdomen pelvis dated 2010. Impression: Pulmonary emboli in the right middle lobe pulmonary artery. No other pulmonary emboli are identified. New 7 mm nodule in the lateral segment of the right middle lobe. This is a category 3 lesion with a 1-2% probability of malignancy. Followup recommendation is for follow-up chest CT in 6 months. There is a 5 cm left adrenal mass not significantly changed from a prior study of 07/06/2016. Signed by Alvaro Crouch MD 12/23/2016 12:53 P
[2016-12-23] MEDS: SLF 3 ML SYR IV SCH ×2 (14:12→22:00)
[2016-12-23] MEDS ORDERED: LOVE0.01 SC (15:07)
[2016-12-23 16:00] VITALS: BP 128/80
[2016-12-23] MEDS: PERCOCET 5MG/325MG TAB PO PRN (17:59)
[2016-12-23] MEDS: ENOXAPARIN 120 MG/0.8 ML SYR (J1650) SC SCH (18:00)
[2016-12-23 20:00] VITALS: BP 123/68
[2016-12-23] MEDS: NIACIN SR (NIASPAN) 500 MG TAB PO SCH (21:28)
[2016-12-23] MEDS: SERTRALINE 100 MG TAB PO SCH (21:28)
[2016-12-23] MEDS: MIRTAZAPINE 15 MG TAB PO SCH (21:29)
[2016-12-23] MEDS: ASPIRIN 81 MG ENTERIC TAB PO SCH (21:29)
[2016-12-23] MEDS: ATORVASTATIN 20 MG TAB PO SCH (21:30)
[2016-12-23] MEDS: LIDOCAINE 5% (LIDODERM) PATCH TD SCH (21:32)
[2016-12-23 23:59] VITALS: BP 131/77
[2016-12-24] MEDS: PERCOCET 5MG/325MG TAB PO PRN ×3 (00:34→08:47)
[2016-12-24] MEDS: MORPHINE 2 MG/ML 1ML SYRINGE IV PRN ×3 (02:53→12:30)
[2016-12-24] MEDS: ENOXAPARIN 120 MG/0.8 ML SYR (J1650) SC SCH (05:22)
[2016-12-24 05:32] LABS: BASO % 0.2 % (0.0-1.0); EOS % 0.3 % (0.0-3.0); LARGE UNSTAINED CELL # 0.2 K/mm3 (0.0-0.4); LARGE UNSTAINED CELL % 1.5 % (0.0-4.0); LYMPH # 1.8 K/mm3 (1.5-4.5); LYMPH % 13.1 % (24.0-44.0); MEAN CORPUSCULAR HEMOGLOBIN 31.2 pg (27.0-33.0); MEAN CORPUSCULAR VOLUME 94.6 fl (80.0-96.0); MONO # 0.7 K/mm3 (0.0-0.8); NEUTROPHILS # 9.7 K/mm3 (1.8-7.7); PLATELET COUNT, AUTOMATED 184 k/mm3 (150-450); RED CELL DISTRIBUTION WIDTH 13.6 % (11.5-14.5); WHITE BLOOD COUNT 12.3 K/mm3 (4.0-10.0)
[2016-12-24 05:47] LABS: ANION GAP 8 MEQ/L (8-16); BLOOD UREA NITROGEN 17 MG/DL (7-18); CALCIUM LEVEL 8.1 MG/DL (8.5-10.1); CARBON DIOXIDE LEVEL 29 MEQ/L (21-32); CHLORIDE LEVEL 108 MEQ/L (98-107); CREATININE FOR GFR 0.88 MG/DL (0.70-1.30); GLOMERULAR FILTRATION RATE > 60.0 (>56); GLUCOSE, FASTING 122 MG/DL (70-105); POTASSIUM SERUM 3.1 MEQ/L (3.5-5.1); SODIUM LEVEL 145 MEQ/L (136-145)
[2016-12-24] MEDS: SLF 3 ML SYR IV SCH ×2 (06:31→12:30)
[2016-12-24] MEDS: BREO ELLIPTA INH SCH (07:25)
[2016-12-24 08:00] VITALS: BP 150/89
[2016-12-24] MEDS: FOLIC ACID 1 MG TAB PO SCH (08:45)
[2016-12-24] MEDS: SUCRALFATE 1 GM TAB PO SCH ×2 (08:45→12:29)
[2016-12-24] MEDS: FUROSEMIDE 40 MG TAB PO SCH (08:45)
[2016-12-24] MEDS: PREGABALIN 100 MG CAP (LYRICA) PO SCH (08:45)
[2016-12-24] MEDS: buPROPion **SR TABLET** (ZYBAN) 150MG PO SCH (08:46)
[2016-12-24] MEDS: PANTOPRAZOLE 40MG TAB (PROTONIX) PO SCH (08:46)
[2016-12-24] MEDS: **NOTE PATIENT COMMENT** MISC XX SCH (08:46)
--- NOTE | 2016-12-24 12:54 | DS.PDOC ---
Discharge Summary General Date of Admission Dec 21, 2016 at 22:28 Date of Discharge 12/24/16 Primary Care Physician: Janes Hickman MD Attending Physician: DELTA DUNCAN MD Discharge Summary PROCEDURES PERFORMED DURING STAY: None. ADMITTING DIAGNOSES: 1. Atypical chest pain 2. History of CAD/MN 3. COPD 4. JOANNE 5. Obesity 6. History of bilateral pulmonary embolism 7. History of left adrenal adenoma 8. Chronic neck and back pain 9. Depression 10. Hypertension 11. History of recreational drug use DISCHARGE DIAGNOSES: 1. pulmonari emboli 2. History of CAD/MN 3. COPD 4. JOANNE 5. Obesity 6. History of bilateral pulmonary embolism 7. History of left adrenal adenoma 8. Chronic neck and back pain 9. Depression 10. Hypertension 11. History of recreational drug use COMPLICATIONS/CHIEF COMPLAINT: Chest Pain. HISTORY OF PRESENT ILLNESS/Hospital course: This is a 56-year-old patient of Dr. Hickman with a history of CAD, MN, COPD, JOANNE, and previous PE he was admitted 12/21/2016 for pulmonary embolus. He has reportedly clotted on Xarelto. Patient denies issues with med compliance. He reports previous failures on Coumadin as well. His respiratory status remained stable throughout admission, and he was discharged on therapeutic Lovenox. He will follow-up with Dr. Hickman outpatient to consider continuation of Lovenox or alternative oral medications, such as Eliquis, as patient has reportedly failed Coumadin in the past. DISCHARGE MEDICATIONS: Please see below. ALLERGIES: Please see below. PHYSICAL EXAMINATION ON DISCHARGE: VITAL SIGNS: Please see below. GENERAL: Alert, comfortable, no acute distress HEENT: Sclerae clear, moist mucous membranes, no JVD NECK: No thyromegaly, no cervical adenopathy CARDIOVASCULAR EXAMINATION: Irregularly irregular rhythm, S1, S2, no murmurs, rubs, or gallops RESPIRATORY EXAMINATION: Clear bilateral to auscultation, no wheezes, rales, rhonchi ABDOMINAL EXAMINATION: Soft, nontender EXTREMITIES: No edema SKIN: Multiple tattoos, warm and dry, no rashes or lesions NEUROLOGICAL EXAMINATION: A and O 3 PSYCHIATRIC EXAMINATION: Normal mood and affect LABORATORY DATA: Please see below. IMAGING: CT angio: Right middle lobe pulmonary emboli. 7 mm nodule not present on prior study. 5 cm left adrenal mass not significantly changed from CT abdomen and pelvis dated 2010. 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 DIET: Regular. DISCHARGE PLAN: Discharged home with follow-up to Dr. Hickman DISPOSITION: Self-care DISCHARGE INSTRUCTIONS: 1. Patient instructed to use Lovenox twice daily 2. Patient instructed to follow-up with Dr. Hickman to discuss long-term treatment ITEMS TO FOLLOWUP ON ON OUTPATIENT: 1. Consider outpatient Heme referral for multiple failed agents vs med compliance DISCHARGE CONDITION: Stable. TIME SPENT ON DISCHARGE: Greater than 30 minutes. Vital Signs/I&Os Vital Signs Date Time Temp Pulse Resp B/P (MAP) Pulse Ox O2 Delivery O2 Flow Rate FiO2 12/24/16 12:30 20 Room Air 12/24/16 08:00 96.5 86 150/89 (109) 99 12/23/16 08:00 2.0 I&O- Last 24 Hours up to 6 AM 12/24/16 05:59 Intake Total 300 ml Output Total 800 ml Balance -500 ml Laboratory Data Labs 24H Laboratory Tests 2 12/24/16 04:52: White Blood Count 12.3H, Red Blood Count 4.51, Hemoglobin 14.1, Hematocrit 42.7 , Mean Corpuscular Volume 94.6, Mean Corpuscular Hemoglobin 31.2, Mean Corpuscular Hemoglobin Concent 33.0, Red Cell Distribution Width 13.6, Platelet Count 184, Neutrophils (%) (Auto) 79.0H, Lymphocytes (%) (Auto) 13.1L, Monocytes (%) (Auto) 6.0H, Eosinophils (%) (Auto) 0.3, Basophils (%) (Auto) 0.2 , Neutrophils # (Auto) 9.7H, Lymphocytes # (Auto) 1.8, Monocytes # (Auto) 0.7, Eosinophils # (Auto) 0.0, Basophils # (Auto) 0.0, Large Unclassified Cells % 1.5 , Large Unclassified Cells # 0.2, Anion Gap 8, Glomerular Filtration Rate > 60.0 , Blood Urea Nitrogen 17, Creatinine 0.88, Sodium Level 145, Potassium Level 3.1 #L, Chloride Level 108H, Carbon Dioxide Level 29, Calcium Level 8.1L CBC/BMP Laboratory Tests 12/24/16 04:52 Red Blood Count 4.51, Mean Corpuscular Volume 94.6, Mean Corpuscular Hemoglobin 31.2, Mean Corpuscular Hemoglobin Concent 33.0, Red Cell Distribution Width 13.6 , Neutrophils (%) (Auto) 79.0 H, Lymphocytes (%) (Auto) 13.1 L, Monocytes (%) ( Auto) 6.0 H, Eosinophils (%) (Auto) 0.3, Basophils (%) (Auto) 0.2, Neutrophils # (Auto) 9.7 H, Lymphocytes # (Auto) 1.8, Monocytes # (Auto) 0.7, Eosinophils # (Auto) 0.0, Basophils # (Auto) 0.0, Calcium Level 8.1 L Microbiology Microbiology 12/23/16 Stool Occult Blood (ALEXSANDER) - Final, Complete Discharge Medications Scheduled (Incruse Ellipta) 62.5 Mcg/Inh Inh, 62.5 MCG INH DAILY, (Reported) Aspirin (Aspirin EC) 81 Mg Tabec, 81 MG PO QHS, (Reported) Atorvastatin Calcium (Atorvastatin Calcium) 40 Mg Tab, 40 MG PO QHS, (Reported) Bupropion HCl (Wellbutrin Sr) 150 Mg Tabcr, 150 MG PO BID, (Reported) Enoxaparin Sodium (Lovenox) 120 Mg/0.8 Ml Inj, 120 MG SC BID Fluticasone/Vilanterol (Breo Ellipta 200-25 Mcg/INH) 1 Inh Inh, 1 PUFF INH DAILY , (Reported) Folic Acid (Folic Acid) 1 Mg Tab, 1 MG PO DAILY, (Reported) Furosemide (Furosemide) 40 Mg Tab, 40 MG PO BID, (Reported) Mirtazapine (Mirtazapine) 15 Mg Tab, 15 MG PO QHS, (Reported) Niacin (Niacin ER) 500 Mg Tab, 500 MG PO QHS, (Reported) Pregabalin (Lyrica) 300 Mg Cap, 300 MG PO BID, (Reported) Sertraline HCl (Sertraline HCl) 100 Mg Tab, 100 MG PO QHS, (Reported) Scheduled PRN Albuterol/Ipratropium (Combivent Respimat 20-100 Mcg/Act) 1 Aer Aer, 2 PUFF INH QID PRN for SHORTNESS OF BREATH, (Reported) Naproxen (Naproxen) 500 Mg Tab, 500 MG PO BID PRN for Pain Nitroglycerin (Nitrostat) 0.4 Mg Subl, 0.4 MG SL NITRO PRN for CHEST PAIN, ( Reported) Ropinirole Hydrochloride (Ropinirole HCl) 2 Mg Tab, 2 MG PO QHS PRN for RESTLESSNESS, (Reported) Allergies Coded Allergies: Contrast Media (Verified Allergy, Severe, ANAPHYLAXIS, RESP PROBLEMS, WHEEZING, 06/27/13) DELTA DUNCAN MD Dec 24, 2016 12:54
[2016-12-24] MEDS ORDERED: NAPR500T3 PO (15:49)
== END 2016-12-24 16:10 | disposition home or self-care (01) | DRG 176 ==
LOC: M ED 14:24 → OBSVTOIN 22:28 → M ED INP 22:28 → M PCU 12-22 00:13
PROVIDERS: ADMIT General Practice; ATTEND Family Medicine
DX: I26.99 Other pulmonary embolism without acute cor pulmonale (principal); G47.33 Obstructive sleep apnea (adult) (pediatric); I10 Essential (primary) hypertension; F32.9 Major depressive disorder, single episode, unspecified; E66.9 Obesity, unspecified; J44.9 Chronic obstructive pulmonary disease, unspecified; M54.2 Cervicalgia; M54.5 Low back pain; I25.10 Atherosclerotic heart disease of native coronary artery without angina pectoris; I25.2 Old myocardial infarction; Z79.82 Long term (current) use of aspirin; Z79.899 Other long term (current) drug therapy; Z91.041 Radiographic dye allergy status; K21.9 Gastro-esophageal reflux disease without esophagitis; K57.30 Diverticulosis of large intestine without perforation or abscess without bleeding; G25.81 Restless legs syndrome; E78.5 Hyperlipidemia, unspecified; F17.200 Nicotine dependence, unspecified, uncomplicated

== ENCOUNTER 2016-12-26 17:21 | Emergency (ER) | payer MEDICARE, MEDICAID ==
[~2016-12-26] VITALS: Ht 175.3 cm; Wt 113.6 kg
[~2016-12-26 17:21] MED LIST changes: +ASPI81TAEC PO; +COMBAER6 INH; +FOLI1TAB4 PO; +FURO40TA2 PO; +INCR1INH INH; +LOVE0.01 SC; +LYRI300C PO; +MIRT15TA3 PO; +NAPR500T3 PO; +NITR4TASL SL; +ROPI2TAB PO
[2016-12-26 18:10] LABS: BASO # 0.1 K/mm3 (0.0-0.2); BASO % 0.9 % (0.0-1.0); EOS # 0.2 K/mm3 (0.0-0.50); EOS % 3.4 % (0.0-3.0); LARGE UNSTAINED CELL # 0.1 K/mm3 (0.0-0.4); LARGE UNSTAINED CELL % 1.7 % (0.0-4.0); LYMPH % 28.3 % (24.0-44.0); MEAN CORPUSCULAR HEMOGLOBIN 31.7 pg (27.0-33.0); MEAN CORPUSCULAR HGB CONC 33.9 g/dl (32.0-36.5); MEAN CORPUSCULAR VOLUME 93.7 fl (80.0-96.0); MONO # 0.5 K/mm3 (0.0-0.8); MONO % 8.2 % (0.0-5.0); NEUTROPHILS # 3.7 K/mm3 (1.8-7.7); NEUTROPHILS % 57.5 % (36.0-66.0); PLATELET COUNT, AUTOMATED 158 k/mm3 (150-450); RED CELL DISTRIBUTION WIDTH 13.5 % (11.5-14.5); WHITE BLOOD COUNT 6.5 K/mm3 (4.0-10.0)
[2016-12-26 18:43] LABS: ALBUMIN 3.2 GM/DL (3.2-5.2); ALBUMIN/GLOBULIN RATIO 1.07 (1.00-1.93); ALKALINE PHOSPHATASE 103 U/L (45-117); ALT/SGPT 28 U/L (12-78); ANION GAP 8 MEQ/L (8-16); AST/SGOT 34 U/L (15-37); BILIRUBIN,DIRECT < 0.1 MG/DL (0.0-0.2); BILIRUBIN,TOTAL 0.3 MG/DL (0.2-1.0); BLOOD UREA NITROGEN 11 MG/DL (7-18); CALCIUM LEVEL 8.1 MG/DL (8.5-10.1); CARBON DIOXIDE LEVEL 29 MEQ/L (21-32); CHLORIDE LEVEL 109 MEQ/L (98-107); CREATININE FOR GFR 0.82 MG/DL (0.70-1.30); FREE T4 1.09 NG/DL (0.76-1.46); GLOMERULAR FILTRATION RATE > 60.0 (>56); GLUCOSE, FASTING 96 MG/DL (70-105); POTASSIUM SERUM 3.8 MEQ/L (3.5-5.1); SODIUM LEVEL 146 MEQ/L (136-145); TOTAL PROTEIN 6.2 GM/DL (6.4-8.2)
--- NOTE | 2016-12-26 19:03 | REP ---
PORTABLE CHEST: AP portable view of the chest is performed. There is no acute infiltrate. There may be mild cardiomegaly. The mediastinal silhouette is unchanged. IMPRESSION: No acute infiltrate. Signed by Alvaro Oleary MD 12/27/2016 12:34 P
[2016-12-26] MEDS ORDERED: diphenhydrAMINE INJ 50MG/ML VIAL (J1200) IV STA (19:20)
[2016-12-26] MEDS ORDERED: dexameTHASONE 20 MG/5 ML VIAL (J1100) IV ONE (19:30)
[2016-12-26 19:50] LABS: INR 0.96
[2016-12-26] MEDS ORDERED: KETOROLAC 30 MG/ML VIAL (J1885) IV ONE (20:00)
--- NOTE | 2016-12-26 20:40 | ECGEPIP ---
Stationary ECG Study [facility] - ED Test Date: 2016-12-26 Pat Name: CORBY HILL Department: Room: - Gender: M Orthopaedic General: MITZI : 1960 Requested By: Suman Amaral Order Number: [id number] Reading MD: Miesha Granados Measurements Intervals [place] Rate: 88 P: 16 RI: 142 QRS: -19 QRSD: 122 T: 18 QT: 378 QTc: 459 Interpretive Statements SINUS RHYTHM POSSIBLE RIGHT VENTRICULAR CONDUCTION DELAY SIMILAR 12/22/16 Electronically Signed On 12-26-2016 20:40:11 EDT by Miesha Granados
[2016-12-26] MEDS ORDERED: ISOVUE-370 76% 100ML VIAL (Q9967) As Ordered ONE (20:51)
--- NOTE | 2016-12-27 00:30 | REPUSA ---
HISTORY: Shortness of breath. COMPARISON: 12/23/2016. TECHNIQUE: A CT-pulmonary angiogram was performed. A dose of intravenous contrast was administered. A xial images were displayed, as were sagittal and coronal reconstructions. A 3-D model was also render ed. Exam DLP: FINDINGS: No CT evidence of pulmonary embolism is identified. There is no evidence of thoracic aortic aneurysm or dissection. No air space consolidation is identified in the lungs. There is no evidence of pulmonary edema. No pa thologically enlarged hilar or mediastinal lymph nodes are identified. No significant pleural or rosa cardial fluid collection is seen. There is no evidence of pneumothorax. Mild degenerative changes are noted in the spine. The included portion of the upper abdomen does not show significant abnormality. The heart is moderately to severely enlarged. Mild pulmonary venous congestive changes present. 5 m m nodular density is noted in the right middle lobe, subpleural in location. Consider follow-up in 6 months. Small hiatal hernia is seen. There is 5.4 x 3.6 cm hypodense mass noted in the left adrenal gland most compatible with adenoma. C orrelation with non-contrast CT of the abdomen and pelvis is suggested. IMPRESSION: 1. No evidence of PE. 2. Mild pulmonary venous congestive changes present. 3. 5 mm nodular density is noted in the right middle lobe, subpleural in location. Consider follow- up in 6 months. 4. Small hiatal hernia is seen. 5. 5.4 x 3.6 cm hypodense mass noted in the left adrenal gland most compatible with adenoma. Correl ation with non-contrast CT of the abdomen and pelvis is suggested.
[2016-12-27 00:43] VITALS: BP 124/72
[2016-12-27] MEDS ORDERED: KETO10TAB PO (01:44)
--- NOTE | 2016-12-27 08:46 | ED PDOC ---
Post-Departure Follow-Up radiology report faxed to Miesha Hutchins MD Dec 27, 2016 08:46
--- NOTE | 2016-12-27 16:05 | ECGEPIP ---
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
== END 2016-12-27 01:58 | disposition home or self-care (01) ==
LOC: M ED 17:21
DX: R07.89 Other chest pain (principal); Z86.711 Personal history of pulmonary embolism; R91.1 Solitary pulmonary nodule; K44.9 Diaphragmatic hernia without obstruction or gangrene; R93.422 Abnormal radiologic findings on diagnostic imaging of left kidney; I25.10 Atherosclerotic heart disease of native coronary artery without angina pectoris; I50.9 Heart failure, unspecified; I10 Essential (primary) hypertension; E78.5 Hyperlipidemia, unspecified; J44.9 Chronic obstructive pulmonary disease, unspecified; F32.9 Major depressive disorder, single episode, unspecified; K57.30 Diverticulosis of large intestine without perforation or abscess without bleeding; G89.29 Other chronic pain; M54.9 Dorsalgia, unspecified; F17.200 Nicotine dependence, unspecified, uncomplicated; Z79.82 Long term (current) use of aspirin; Z79.899 Other long term (current) drug therapy; Z91.041 Radiographic dye allergy status
CPT/HCPCS: 71010; 71275; 80048; 80076; 82550; 82553; 83690; 83880; 84439; 84443; 84484; 85025; 85610; 85730; 93005; 93041; 94760; 96374; 96375; 99285; G0463; J1100; J1200; J1885; Q9967

== ENCOUNTER 2017-01-17 10:27 | Observation (INO) | payer MEDICARE, MEDICAID ==
[~2017-01-17] VITALS: Ht 175.3 cm; Wt 116.8 kg
[~2017-01-17 10:27] MED LIST changes: +KETO10TAB PO
[2017-01-17] MEDS ORDERED: GEOD20CA14 PO (10:56)
--- NOTE | 2017-01-17 11:47 | REP ---
Clinical: Cough and dyspnea . Comparison: 12/26/2016 . Findings: The mediastinum and cardiac silhouette are stable and within normal limits for portable technique. The lung ballesteros are clear without acute consolidation, effusion, or pneumothorax. Skeletal structures are intact. Impression: No acute cardiopulmonary process appreciated. Signed by Nik Syed MD 01/17/2017 11:39 A
[2017-01-17 12:04] LABS: BASO % 0.7 % (0.0-1.0); EOS # 0.1 K/mm3 (0.0-0.50); EOS % 1.4 % (0.0-3.0); LARGE UNSTAINED CELL # 0.1 K/mm3 (0.0-0.4); LARGE UNSTAINED CELL % 1.6 % (0.0-4.0); LYMPH # 1.7 K/mm3 (1.5-4.5); LYMPH % 24.1 % (24.0-44.0); MEAN CORPUSCULAR HEMOGLOBIN 31.7 pg (27.0-33.0); MEAN CORPUSCULAR HGB CONC 35.2 g/dl (32.0-36.5); MEAN CORPUSCULAR VOLUME 90.3 fl (80.0-96.0); MONO # 0.4 K/mm3 (0.0-0.8); MONO % 6.2 % (0.0-5.0); NEUTROPHILS # 4.5 K/mm3 (1.8-7.7); NEUTROPHILS % 66.1 % (36.0-66.0); PLATELET COUNT, AUTOMATED 186 k/mm3 (150-450); RED CELL DISTRIBUTION WIDTH 12.8 % (11.5-14.5); WHITE BLOOD COUNT 6.8 K/mm3 (4.0-10.0)
[2017-01-17 12:12] LABS: INR 0.96
[2017-01-17 12:35] LABS: ALBUMIN 3.5 GM/DL (3.2-5.2); ALBUMIN/GLOBULIN RATIO 0.83 (1.00-1.93); ALKALINE PHOSPHATASE 124 U/L (45-117); ALT/SGPT 26 U/L (12-78); ANION GAP 6 MEQ/L (8-16); AST/SGOT 16 U/L (15-37); BILIRUBIN,DIRECT < 0.1 MG/DL (0.0-0.2); BILIRUBIN,TOTAL 0.3 MG/DL (0.2-1.0); BLOOD UREA NITROGEN 8 MG/DL (7-18); CALCIUM LEVEL 8.9 MG/DL (8.5-10.1); CARBON DIOXIDE LEVEL 27 MEQ/L (21-32); CHLORIDE LEVEL 104 MEQ/L (98-107); CREATININE FOR GFR 0.84 MG/DL (0.70-1.30); GLOMERULAR FILTRATION RATE > 60.0 (>56); GLUCOSE, FASTING 93 MG/DL (70-105); POTASSIUM SERUM 3.9 MEQ/L (3.5-5.1); SODIUM LEVEL 137 MEQ/L (136-145); TOTAL PROTEIN 7.7 GM/DL (6.4-8.2)
[2017-01-17] MEDS ORDERED: ASPIRIN 81 MG CHEW TABLET PO ONE (12:45)
[2017-01-17] MEDS: NITROGLYCERIN 0.4 MG SUBL TABLET SL PRN ×2 (12:47→19:50)
[2017-01-17] MEDS ORDERED: MORPHINE 4 MG/ML 1ML SYRINGE IV ONE ×2 (13:45→17:15)
[2017-01-17] MEDS ORDERED: ENOX120I3 SC (18:37)
[2017-01-17] MEDS ORDERED: IPRATROPIUM 0.5MG/ALBUTEROL 2.5MG INH SOL UD 3ML (DUONEB)(J7620) NEB PRN (19:00)
[2017-01-17] MEDS ORDERED: ONDANSETRON 4MG/2ML VIAL (J2405) IV PRN (19:00)
[2017-01-17] MEDS ORDERED: ACETAMINOPHEN TAB 650MG DOSE (2X325MG) PO PRN (19:00)
[2017-01-17] MEDS ORDERED: NITROGLYCERIN 0.4 MG SUBL TABLET SL PRN (19:00)
[2017-01-17] MEDS: FUROSEMIDE 40 MG TAB PO SCH (19:47)
[2017-01-17 19:50] VITALS: BP 108/60
[2017-01-17] MEDS: IPRATROPIUM 0.5MG/ALBUTEROL 2.5MG INH SOL UD 3ML (DUONEB)(J7620) NEB SCH (20:00)
--- NOTE | 2017-01-17 20:17 | HPEPDOC ---
General Date of Admission Jan 17, 2017 at 18:57 Primary Care Physician: Janes Hickman MD Attending Physician: Servando Jackson M.D. Chief Complaint The patient is a 56-year-old male admitted with a reason for visit of Chest Pain. History of Present Illness 56-year-old patient of Dr. Hickman with a history of CAD, NC in 2001, COPD, JOANNE, and PE who failed anticoagulation therapy on Xarelto (Now on Lovenox SC BID) presents to the ER with the chief complaint of atypical chest pain over the last 2 months. The patient states that he has a sharp chest pain across both sides of his chest which he reports 8 out of 10 in intensity. The patient denies any specific alleviating or aggravating factors. He does report associated shortness of breath at times, but notes that it is inconsistent. Of note, the patient did state that he had a cardiac catheterization done in [place] in 2013 and did not require any intervention. In addition, the patient also had a stress test done in May of this year with Dr. Romero, and was not noted to have any reversible ischemia. In the ER, an EKG revealed no acute ST changes. Troponins have been negative 2. In addition, a d-dimer level is also negative. The patient will be admitted to the hospitalist service under Dr. Jackson for observation of atypical chest pain. Home Medications Scheduled (Incruse Ellipta) 62.5 Mcg/Inh Inh, 62.5 MCG INH QHS, (Reported) Aspirin (Aspirin EC) 81 Mg Tabec, 81 MG PO QHS, (Reported) Atorvastatin Calcium (Atorvastatin Calcium) 40 Mg Tab, 40 MG PO QHS, (Reported) Bupropion HCl (Wellbutrin Sr) 150 Mg Tabcr, 300 MG PO BID, (Reported) Enoxaparin Sodium (Enoxaparin Sodium) 120 Mg/0.8 Ml Inj, 120 MG SC BID, ( Reported) Fluticasone/Vilanterol (Breo Ellipta 200-25 Mcg/INH) 1 Inh Inh, 1 PUFF INH QHS, (Reported) Folic Acid (Folic Acid) 1 Mg Tab, 1 MG PO QHS, (Reported) Furosemide (Furosemide) 40 Mg Tab, 40 MG PO BID, (Reported) Mirtazapine (Mirtazapine) 15 Mg Tab, 15 MG PO QHS, (Reported) Niacin (Niacin ER) 500 Mg Tab, 500 MG PO QHS, (Reported) Pregabalin (Lyrica) 300 Mg Cap, 300 MG PO BID, (Reported) Ropinirole Hydrochloride (Ropinirole HCl) 2 Mg Tab, 2 MG PO QHS, (Reported) Sertraline HCl (Sertraline HCl) 100 Mg Tab, 100 MG PO QHS, (Reported) Scheduled PRN Albuterol/Ipratropium (Combivent Respimat 20-100 Mcg/Act) 1 Aer Aer, 2 PUFF INH QID PRN for SHORTNESS OF BREATH, (Reported) Nitroglycerin (Nitrostat) 0.4 Mg Subl, 0.4 MG SL NITRO PRN for CHEST PAIN, ( Reported) Allergies Coded Allergies: Contrast Media (Verified Allergy, Severe, ANAPHYLAXIS, RESP PROBLEMS, WHEEZING, 06/27/13) Past Medical History Medical History As noted in HPI. Surgical History 1. Appendectomy. 2. Tonsillectomy. 3. Right inguinal herniorrhaphy. 4. Right lower extremity thrombectomy. 5. Refused colonoscopy. Family History Father alive age 82 with hypertension, hyperlipidemia, CAD, NC, CVA. Mother alive age 75 with hypertension, RLS, edema, lipids. Seven sisters, one with cervical cancer, others are healthy. Three brothers, one at 22 months. Social History * Smoker: less than 1 pack/day, cigarettes Alcohol: Denies Drugs: denies Review of Symptoms Other systems 10 point review of systems negative unless otherwise specified in HPI. Physical Examination General Exam: Positive: Alert, Cooperative, No Acute Distress ENT Exam: Positive: Atraumatic, Mucous membr. moist/pink Neck Exam: Negative: JVD Chest Exam: Positive: Clear to auscultation, Normal air movement, Other (chest pain reproducible on palpation of the chest wall.) Heart Exam: Positive: Rate Normal, Normal S1, Normal S2 Telemetry: Positive: Sinus Abdomen Exam: Positive: Soft, Negative: Tenderness Extremity Exam: Negative: Tenderness, Swelling Psych Exam: Positive: Oriented x 3 Vital Signs Vital Signs Date Time Temp Pulse Resp B/P (MAP) Pulse Ox O2 Delivery O2 Flow Rate FiO2 01/17/17 19:50 108/60 01/17/17 18:55 74 95 01/17/17 17:38 18 01/17/17 13:57 Room Air 01/17/17 10:28 97.7 Laboratory Data Labs 24H Laboratory Tests 2 01/17/17 11:44: White Blood Count 6.8, Red Blood Count 4.90, Hemoglobin 15.6, Hematocrit 44.3, Mean Corpuscular Volume 90.3, Mean Corpuscular Hemoglobin 31.7, Mean Corpuscular Hemoglobin Concent 35.2, Red Cell Distribution Width 12.8, Platelet Count 186, Neutrophils (%) (Auto) 66.1H, Lymphocytes (%) (Auto) 24.1, Monocytes (%) (Auto) 6.2H, Eosinophils (%) (Auto) 1.4, Basophils (%) (Auto) 0.7, Neutrophils # (Auto) 4.5, Lymphocytes # (Auto) 1.7, Monocytes # (Auto) 0.4, Eosinophils # (Auto) 0.1, Basophils # (Auto) 0.0, Large Unclassified Cells % 1.6 , Large Unclassified Cells # 0.1, Prothrombin Time 12.9, Prothromb Time International Ratio 0.96, Activated Partial Thromboplast Time 35.7, D-Dimer, Quantitative < 270.0, Anion Gap 6L, Glomerular Filtration Rate > 60.0, Lactic Acid Level 1.1, Calcium Level 8.9, Aspartate Amino Transf (AST/SGOT) 16, Alanine Aminotransferase (ALT/SGPT) 26, Alkaline Phosphatase 124H, Total Bilirubin 0.3, Direct Bilirubin < 0.1, Total Creatine Kinase 55, Creatine Kinase MB 1.0, Creatine Kinase MB Relative Index 1.81, Troponin I < 0.02, B- Type Natriuretic Peptide 8.7, Total Protein 7.7, Albumin 3.5, Albumin/Globulin Ratio 0.83L, Lipase 240, Thyroid Stimulating Hormone (TSH) 1.350 01/17/17 16:30: Total Creatine Kinase 46, Creatine Kinase MB 1.0, Creatine Kinase MB Relative Index 2.17, Troponin I < 0.02 CBC/BMP Laboratory Tests 01/17/17 11:44 Red Blood Count 4.90, Mean Corpuscular Volume 90.3, Mean Corpuscular Hemoglobin 31.7, Mean Corpuscular Hemoglobin Concent 35.2, Red Cell Distribution Width 12.8 , Neutrophils (%) (Auto) 66.1 H, Lymphocytes (%) (Auto) 24.1, Monocytes (%) ( Auto) 6.2 H, Eosinophils (%) (Auto) 1.4, Basophils (%) (Auto) 0.7, Neutrophils # (Auto) 4.5, Lymphocytes # (Auto) 1.7, Monocytes # (Auto) 0.4, Eosinophils # ( Auto) 0.1, Basophils # (Auto) 0.0 Microbiology Microbiology 01/17/17 Blood Culture, Received Pending 01/17/17 Blood Culture, Received Pending Plan / VTE VTE Prophylaxis Ordered?: Yes Plan Plan Atypical chest pain likely Musculoskeletal in Nature Patient chest pain reproducible on palpation of chest wall EKG without any acute ST changes Troponins negative 2-we'll serially trend Continue aspirin, statin, sublingual nitroglycerin Follows with Dr. Romero of cardiology--recent stress test done in May 2016 negative according to patient We will continue to monitor the patient on telemetry History of CAD/NC, stable EKG, troponins with no acute changes Continue aspirin, statin COPD, stable Albuterol when necessary History of bilateral pulmonary embolism On Lovenox subcutaneous twice a day D-dimer negative in the ER Depression Continue Wellbutrin, Zoloft Restless leg syndrome Continue ropinirole Obstructive sleep apnea Continue CPAP DVT prophylaxis Lovenox twice a day The patient will be admitted under the service of the [facility], CRUZ Conrad MD Jan 17, 2017 20:17
[2017-01-17] MEDS ORDERED: ASPIRIN 81 MG ENTERIC TAB PO SCH (21:00)
[2017-01-17] MEDS: FOLIC ACID 1 MG TAB PO SCH (21:10)
[2017-01-17] MEDS: PREGABALIN 100 MG CAP (LYRICA) PO SCH (21:10)
[2017-01-17] MEDS: ATORVASTATIN 20 MG TAB PO SCH (21:10)
[2017-01-17] MEDS: SERTRALINE 100 MG TAB PO SCH (21:11)
[2017-01-17] MEDS: ENOXAPARIN 120 MG/0.8 ML SYR (J1650) SC SCH (21:11)
--- NOTE | 2017-01-17 21:21 | ECGEPIP ---
Stationary ECG Study [facility] - ED Test Date: 2017-01-17 Pat Name: CORBY HILL Department: Room: - Gender: M Retail Planning Manager: JLuis : 1960 Requested By: Miesha Granados Order Number: [id number] Reading MD: Miesha Granados Measurements Intervals [place] Rate: 67 P: 13 MI: 147 QRS: -19 QRSD: 106 T: 1 QT: 385 QTc: 407 Interpretive Statements SINUS RHYTHM LOW QRS VOLTAGE IN PRECORDIAL LEADS INCOMPLETE RIGHT BUNDLE BRANCH BLOCK SIMILAR 12/27/16 Electronically Signed On 01-17-2017 21:21:44 EDT by Miesha Granados
--- NOTE | 2017-01-17 21:27 | ECGEPIP ---
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
[2017-01-17] MEDS: NIACIN SR (NIASPAN) 500 MG TAB PO SCH (21:33)
[2017-01-17] MEDS: MIRTAZAPINE 15 MG TAB PO SCH (21:33)
[2017-01-17] MEDS: buPROPion **SR TABLET** (ZYBAN) 150MG PO SCH (21:34)
[2017-01-17] MEDS: rOPINIRole 1MG TAB PO SCH (21:34)
[2017-01-17 22:50] VITALS: BP 131/80
[2017-01-18] VITALS (7 sets, daily range): BP systolic 113–133; BP diastolic 68–77; PULSE 72–108
[2017-01-18] MEDS: IPRATROPIUM 0.5MG/ALBUTEROL 2.5MG INH SOL UD 3ML (DUONEB)(J7620) NEB SCH ×4 (00:55→20:12)
[2017-01-18 08:09] LABS: MEAN CORPUSCULAR HEMOGLOBIN 31.6 pg (27.0-33.0); MEAN CORPUSCULAR HGB CONC 34.1 g/dl (32.0-36.5); MEAN CORPUSCULAR VOLUME 92.5 fl (80.0-96.0); RED CELL DISTRIBUTION WIDTH 12.8 % (11.5-14.5); WHITE BLOOD COUNT 4.7 K/mm3 (4.0-10.0)
[2017-01-18 08:10] LABS: ANION GAP 12 MEQ/L (8-16); BLOOD UREA NITROGEN 9 MG/DL (7-18); CALCIUM LEVEL 9.2 MG/DL (8.5-10.1); CARBON DIOXIDE LEVEL 27 MEQ/L (21-32); CHLORIDE LEVEL 104 MEQ/L (98-107); CREATININE FOR GFR 0.87 MG/DL (0.70-1.30); GLOMERULAR FILTRATION RATE > 60.0 (>56); GLUCOSE, FASTING 126 MG/DL (70-105); POTASSIUM SERUM 3.9 MEQ/L (3.5-5.1); SODIUM LEVEL 143 MEQ/L (136-145)
[2017-01-18] MEDS: FUROSEMIDE 40 MG TAB PO SCH ×2 (08:56→17:13)
[2017-01-18] MEDS: buPROPion **SR TABLET** (ZYBAN) 150MG PO SCH ×2 (08:56→20:48)
[2017-01-18] MEDS: ENOXAPARIN 120 MG/0.8 ML SYR (J1650) SC SCH ×2 (08:57→20:51)
[2017-01-18] MEDS: PREGABALIN 100 MG CAP (LYRICA) PO SCH ×2 (08:57→20:49)
[2017-01-18] MEDS: MELOXICAM (MOBIC) 7.5 MG TAB PO SCH (15:28)
--- NOTE | 2017-01-18 18:20 | ECGEPIP ---
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
--- NOTE | 2017-01-18 19:02 | IPNPDOC ---
Subjective Date Seen The patient was seen on 01/18/17. Subjective Chief Complaint/HPI The patient is a 56-year-old male admitted with a reason for visit of Chest Pain. Events since last encounter He was admitted and initially held in the ER for about 24h. During this time he continued to have episodes of intermittent chest pain. He reports to me he is currently having it and it seem to be worse when he takes a deep breath in. It is not reproducible. He was recently admitted for a PE that happened while he was on a direct Xa inhibitor. Currently he is on therapeutic Lovenox at home for this condition. General: Reports: Fatigue Constitutional: Denies: Chills, Fever Pulmonary: Reports: Pleuritic Chest Pain, Denies: Cough Cardiovascular: Reports: Chest Pain (worse with deep inspiration), Denies: Edema Gastrointestinal: Denies: Abdominal Pain Psych: Reports: Mood Normal Objective Physical Examination General Exam: Positive: Alert, Cooperative, No Acute Distress ENT Exam: Positive: Atraumatic, Mucous membr. moist/pink Neck Exam: Negative: Lymphadenopathy Chest Exam: Positive: Clear to auscultation, Normal air movement, Wheezing ( occasional scattered expiratory wheezes noted throughout the lung ballesteros), Other (I was not able to reproduce his chest pain with palpation/pressure at the time of my exam, however, on deep inspiration he reported that he was feeling it.) Heart Exam: Positive: Rate Normal, Normal S1, Normal S2 Telemetry: Positive: Sinus Abdomen Exam: Positive: Normal bowel sounds, Soft, Negative: Tenderness Extremity Exam: Negative: Tenderness, Swelling Psych Exam: Positive: Mood NL, Oriented x 3 Assessment /Plan Problems (1) Chest pain Status: Acute Response to Treatment: Stable Discussed With: Patient Problem Specific Plan: Monitor Clinically Problem Text: He has chest pain, and has been monitored on telemetry while being held in the ER for >24h. During this time he has had several episodes or pain without any noted changes on the telemetry. I am suspecting that the cause of this pain is pulmonary, likely pleuritis 2/2 his resolving PE. He has been known to have MSK chest pain in the past and on admission the hospitalist noted a reproducible component to his chest pain. I was not able to duplicate this tonight. He was started on meloxicam 15mg to help with his pain and he reports that this helped some. (2) CAD (coronary artery disease) Status: Chronic Discussed With: Patient Problem Specific Plan: Monitor Clinically Problem Text: He has a history of CAD and was stented in 2004, but was evaluated with a cardiac catheterization in 09/2013 that didn't show significant CAD. He sees Dr. Romero for his cardiac care and saw him last in around May 2016. I think it would be good for him to have a hospital follow up with him, but as the chest pain described is very atypical for cardiac disease, I don't think it is necessary to get an inpatient consultation at this time. (3) Pulmonary embolism Problem Text: He has a subacute pulmonary embolism. He is being treated with therapeutic Lovenox injections at home. He reports that he is being compliant with this treatment. Based on the fact that he has pleuritic chest pain, and that he was admitted just over a month ago with the PE, I suspect that his chest pain is actually pleuritis 2/2 resolving clot and possibly some inflammation. I did prescribe meloxicam for limited use to see if decreasing the inflammation in the pleura will help with his pain. (4) Blood bacterial culture positive Status: Acute Problem Text: This is a new finding. I wonder if it is a contaminant as only one bottle is currently growing. We will monitor for signs of bacteremia or sepsis. Right now he doesn't have them and I am going to hold off using an antibiotic empirically; if he has a cx that grows out this will only help us select the most appropriate abx in the future. (5) COPD (chronic obstructive pulmonary disease) Status: Chronic Response to Treatment: Stable Discussed With: Patient Problem Text: Continue home regimen for this. (6) Cigarette nicotine dependence, uncomplicated Status: Chronic Response to Treatment: Improving Discussed With: Patient Problem Text: I discussed the importance of quitting smoking for his health. He is aware of this. He reports that he is contemplative, but not ready to comitt to a quit date yet. I offered, and he declined a nicotine patch or any other assistance with quitting smoking at this time. Plan/VTE VTE Prophylaxis Ordered?: Yes (therapeutic Lovenox) VS, I&O, 24H, Fishbone Vital Signs/I&O Vital Signs Date Time Temp Pulse Resp B/P (MAP) Pulse Ox O2 Delivery O2 Flow Rate FiO2 01/18/17 16:00 98.1 106 18 113/77 (89) 93 Room Air I&O- Last 24 Hours up to 6 AM 01/18/17 05:59 Intake Total 0 ml Output Total 300 ml Balance -300 ml Laboratory Data 24H LABS Laboratory Tests 2 01/18/17 00:23: Total Creatine Kinase 38L, Creatine Kinase MB 1.0, Creatine Kinase MB Relative Index 2.63, Troponin I < 0.02 01/18/17 07:33: Total Creatine Kinase 56, Creatine Kinase MB 1.0, Creatine Kinase MB Relative Index 1.78, Troponin I < 0.02, Anion Gap 12, Glomerular Filtration Rate > 60.0, Blood Urea Nitrogen 9, Creatinine 0.87, Sodium Level 143, Potassium Level 3.9, Chloride Level 104, Carbon Dioxide Level 27, Calcium Level 9.2 01/18/17 16:19: Total Creatine Kinase 38L, Creatine Kinase MB 1.0, Creatine Kinase MB Relative Index 2.63, Troponin I < 0.02 CBC/BMP Laboratory Tests 01/18/17 07:33 Red Blood Count 4.69, Mean Corpuscular Volume 92.5, Mean Corpuscular Hemoglobin 31.6, Mean Corpuscular Hemoglobin Concent 34.1, Red Cell Distribution Width 12.8 , Calcium Level 9.2, Total Creatine Kinase 56 Microbiology Microbiology 01/17/17 Blood Culture - Preliminary, Resulted No growth after 24 hours . All specim... 01/17/17 Blood Culture - Preliminary, Resulted Janes Hickman MD Jan 18, 2017 19:02
[2017-01-18] MEDS: SERTRALINE 100 MG TAB PO SCH (20:48)
[2017-01-18] MEDS: NIACIN SR (NIASPAN) 500 MG TAB PO SCH (20:48)
[2017-01-18] MEDS: rOPINIRole 1MG TAB PO SCH (20:48)
[2017-01-18] MEDS: ATORVASTATIN 20 MG TAB PO SCH (20:48)
[2017-01-18] MEDS: MIRTAZAPINE 15 MG TAB PO SCH (20:49)
[2017-01-18] MEDS: FOLIC ACID 1 MG TAB PO SCH (20:49)
[2017-01-18] MEDS: ASPIRIN 81 MG ENTERIC TAB PO SCH (20:49)
[2017-01-18] MEDS: MORPHINE 2 MG/ML 1ML SYRINGE IV PRN (20:50)
[2017-01-19] MEDS: IPRATROPIUM 0.5MG/ALBUTEROL 2.5MG INH SOL UD 3ML (DUONEB)(J7620) NEB SCH ×4 (01:17→20:00)
[2017-01-19 06:00] VITALS: BP 134/78
[2017-01-19 06:37] LABS: MEAN CORPUSCULAR HEMOGLOBIN 30.8 pg (27.0-33.0); MEAN CORPUSCULAR HGB CONC 33.2 g/dl (32.0-36.5); MEAN CORPUSCULAR VOLUME 92.6 fl (80.0-96.0); WHITE BLOOD COUNT 5.2 K/mm3 (4.0-10.0)
[2017-01-19 06:46] LABS: ANION GAP 8 MEQ/L (8-16); BLOOD UREA NITROGEN 11 MG/DL (7-18); CALCIUM LEVEL 8.6 MG/DL (8.5-10.1); CARBON DIOXIDE LEVEL 30 MEQ/L (21-32); CHLORIDE LEVEL 104 MEQ/L (98-107); CREATININE FOR GFR 0.88 MG/DL (0.70-1.30); GLOMERULAR FILTRATION RATE > 60.0 (>56); GLUCOSE, FASTING 99 MG/DL (70-105); POTASSIUM SERUM 3.9 MEQ/L (3.5-5.1); SODIUM LEVEL 142 MEQ/L (136-145)
[2017-01-19 07:31] VITALS: O2SAT 93
[2017-01-19] MEDS: buPROPion **SR TABLET** (ZYBAN) 150MG PO SCH ×2 (09:06→20:17)
[2017-01-19] MEDS: FUROSEMIDE 40 MG TAB PO SCH ×2 (09:06→17:30)
[2017-01-19] MEDS: PREGABALIN 100 MG CAP (LYRICA) PO SCH ×2 (09:06→20:18)
[2017-01-19] MEDS: ENOXAPARIN 120 MG/0.8 ML SYR (J1650) SC SCH ×2 (09:07→20:19)
[2017-01-19] MEDS: MORPHINE 2 MG/ML 1ML SYRINGE IV PRN ×3 (10:17→17:29)
--- NOTE | 2017-01-19 11:37 | IPNPDOC ---
Subjective Date Seen The patient was seen on 01/19/17. Subjective Chief Complaint/HPI The patient is a 56-year-old male admitted with a reason for visit of Chest Pain. Events since last encounter Pt continues to have CP. Denies SOB. Constitutional: Denies: Chills, Fever Pulmonary: Denies: Dyspnea Cardiovascular: Reports: Chest Pain, Denies: Palpitations Gastrointestinal: Denies: Abdominal Pain Objective Physical Examination General Exam: Positive: Alert, Cooperative, No Acute Distress ENT Exam: Positive: Atraumatic, Mucous membr. moist/pink Neck Exam: Negative: JVD Chest Exam: Positive: Clear to auscultation, Normal air movement Heart Exam: Positive: Rate Normal, Normal S1, Normal S2 Abdomen Exam: Positive: Soft, Negative: Tenderness Extremity Exam: Negative: Tenderness, Swelling Psych Exam: Positive: Oriented x 3 Assessment /Plan Problems (1) Atypical chest pain Problem Specific Plan: Monitor Clinically Problem Text: Cardiac enzymes negative. CP possibly related to H/O PE or musculoskeletal. Discuss with attending. (2) Positive blood culture Problem Text: Blood culture positive for G+C in [place], and other blood culture negative after 24 hours. May be contaminant. Discuss with attending. (3) Coronary artery disease Problem Text: On Lipitor, Aspirin, PRN NTG. (4) History of pulmonary embolism Problem Text: On therapeutic Lovenox (5) Depression Problem Text: On Zoloft (6) RLS (restless legs syndrome) Problem Text: On Requip Plan/VTE VTE Prophylaxis Ordered?: Yes Plan Family Medicine Attending Note: I saw and examined Mr. Espinal, discussed with CRYSTAL Ng. Agree with their note as documented. I initially asked Oleksandr to discharge the patient for observation, as he has ruled out serious cardiac problem. The patient expressed some discomfort with being discharged at that time. I saw him later in the day and he remained stable. He seemed a little more comfortable with this additional time evaluation the hospital. Additionally he is more comfortable with me, as I am his primary care provider. I explained to him carefully that I believe his chest pain relates to pleurisy from dissolving clots related to his recent pulmonary embolism. I explained pleuritic chest pain exactly how it works. Once he had an understanding of what is likely going on, he was much more comfortable with the idea of discharge. I did send him home this evening. The only change to his regimen was the addition of meloxicam which he is to take infrequently but when he has more chest pain the time he is experiencing today. 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) VS, I&O, 24H, Fishbone Vital Signs/I&O Vital Signs Date Time Temp Pulse Resp B/P (MAP) Pulse Ox O2 Delivery O2 Flow Rate FiO2 01/19/17 10:17 22 Room Air 01/19/17 07:31 93 01/19/17 06:00 97.9 83 134/78 (96) I&O- Last 24 Hours up to 6 AM 01/19/17 06:00 Intake Total 2160 ml Output Total 3100 ml Balance -940 ml Laboratory Data 24H LABS Laboratory Tests 2 01/18/17 16:19: Total Creatine Kinase 38L, Creatine Kinase MB 1.0, Creatine Kinase MB Relative Index 2.63, Troponin I < 0.02 01/19/17 06:19: Anion Gap 8, Glomerular Filtration Rate > 60.0, Blood Urea Nitrogen 11, Creatinine 0.88, Sodium Level 142, Potassium Level 3.9, Chloride Level 104, Carbon Dioxide Level 30, Calcium Level 8.6 CBC/BMP Laboratory Tests 01/19/17 06:19 Red Blood Count 4.84, Mean Corpuscular Volume 92.6, Mean Corpuscular Hemoglobin 30.8, Mean Corpuscular Hemoglobin Concent 33.2, Red Cell Distribution Width 13.0 , Calcium Level 8.6 Microbiology Microbiology 01/17/17 Blood Culture - Preliminary, Resulted No growth after 24 hours . All specim... 01/17/17 Blood Culture - Preliminary, Resulted Reid Montejo Jan 19, 2017 11:37 Janes Hickman MD Jan 20, 2017 23:50
[2017-01-19 14:00] VITALS: BP 122/65
[2017-01-19] MEDS ORDERED: MELO7.5T7 PO (18:47)
[2017-01-19] MEDS: rOPINIRole 1MG TAB PO SCH (20:17)
[2017-01-19] MEDS: NIACIN SR (NIASPAN) 500 MG TAB PO SCH (20:17)
[2017-01-19] MEDS: ASPIRIN 81 MG ENTERIC TAB PO SCH (20:17)
[2017-01-19] MEDS: SERTRALINE 100 MG TAB PO SCH (20:18)
[2017-01-19] MEDS: FOLIC ACID 1 MG TAB PO SCH (20:18)
[2017-01-19] MEDS: ATORVASTATIN 20 MG TAB PO SCH (20:18)
[2017-01-19] MEDS: MIRTAZAPINE 15 MG TAB PO SCH (20:22)
[2017-01-19] MEDS ORDERED: INFLUENZA QUADRIVALENT PF VACCINE 0.5ML SYRINGE (90686) IM ONE (21:00)
[2017-01-19] MEDS: MELOXICAM (MOBIC) 7.5 MG TAB PO SCH (21:22)
[2017-01-20] MEDS ORDERED: INFLUENZA QUADRIVALENT PF VACCINE 0.5ML SYRINGE (90686) IM ONE (09:00)
== END 2017-01-19 21:36 | disposition home or self-care (01) ==
LOC: M ED 10:27 → M ED INP 18:57 → M MSPAV 01-18 20:05
PROVIDERS: ADMIT Internal Medicine; ATTEND Family Medicine
DX: R07.9 Chest pain, unspecified (principal); R79.89 Other specified abnormal findings of blood chemistry; I25.10 Atherosclerotic heart disease of native coronary artery without angina pectoris; Z86.711 Personal history of pulmonary embolism; G25.81 Restless legs syndrome; J44.9 Chronic obstructive pulmonary disease, unspecified; R06.9 Unspecified abnormalities of breathing; Z79.82 Long term (current) use of aspirin; Z79.899 Other long term (current) drug therapy; Z91.041 Radiographic dye allergy status; F17.210 Nicotine dependence, cigarettes, uncomplicated; Z79.02 Long term (current) use of antithrombotics/antiplatelets; F32.9 Major depressive disorder, single episode, unspecified
CPT/HCPCS: 36415; 71010; 80048; 80076; 82550; 82553; 83605; 83690; 83880; 84443; 84484; 85025; 85027; 85379; 85610; 85730; 87040; 87077; 87186; 90686; 93005; 93041; 94640; 94760; 96372; 96374; 96375; 96376; 99285; G0008; G0378; J1650

== ENCOUNTER 2017-03-17 08:01 | Emergency (ER) | payer MEDICARE, MEDICAID ==
[~2017-03-17] VITALS: Ht 175.3 cm; Wt 119.5 kg
[~2017-03-17 08:01] MED LIST changes: +ENOX120I3 SC; +GEOD20CA14 PO; +MELO7.5T7 PO
[2017-03-17] MEDS ORDERED: ONDANSETRON 4MG/2ML VIAL (J2405) IV ONE (08:30)
[2017-03-17] MEDS ORDERED: MORPHINE 4 MG/ML 1ML SYRINGE IV PRN (08:30)
[2017-03-17 08:53] LABS: BASO % 0.6 % (0.0-1.0); EOS # 0.1 10^3/uL (0.0-0.50); EOS % 1.9 % (0.0-3.0); IMMATURE GRANULOCYTE % 0.4 % (0-0); LYMPH # 1.3 10^3/uL (1.5-4.5); LYMPH % 17.9 % (24.0-44.0); MEAN CORPUSCULAR HEMOGLOBIN 29.7 pg (27.0-33.0); MEAN CORPUSCULAR HGB CONC 31.6 g/dl (32.0-36.5); MEAN CORPUSCULAR VOLUME 94.1 fl (80.0-96.0); MONO # 0.6 10^3/uL (0.0-0.8); MONO % 8.7 % (0.0-5.0); NEUTROPHILS # 5.1 10^3/uL (1.8-7.7); NEUTROPHILS % 70.5 % (36.0-66.0); PLATELET COUNT, AUTOMATED 160 10^3/uL (150-450); RED CELL DISTRIBUTION WIDTH 13.2 % (11.5-14.5); WHITE BLOOD COUNT 7.2 10^3/uL (4.0-10.0)
--- NOTE | 2017-03-17 08:58 | REP ---
CT of the brain without IV contrast: There is no subdural or epidural hematoma. There is no other hemorrhage. There is no edema, mass effect or midline shift. Ventricles are normal size and midline. The visualized paranasal sinuses and mastoid air cells are clear. Impression: Negative CT study of the brain. Signed by Alvaro Crouch MD 03/17/2017 08:50 A
[2017-03-17 09:03] LABS: INR 0.96
--- NOTE | 2017-03-17 09:10 | REP ---
CT of the abdomen pelvis without IV or bowel contrast: Comparison is 09/30/2016. There is no hydronephrosis. No renal, ureteral or bladder calculi. There is no perinephric stranding. The lumbar and lower thoracic vertebral body heights are normal. There is no listhesis. There is multilevel degenerative disc disease. There are no vertebral posterior element fractures. No sacral or pelvic fracture. There are no fractures of the visualized ribs. There is no hemoperitoneum or pneumoperitoneum. The patients known left adrenal adenoma is unchanged. The visualized lung ballesteros are unremarkable. The unenhanced hepatic parenchyma is unremarkable. There is a tiny 2-mm gallbladder calculus. Gallbladder is otherwise unremarkable. Pancreas and spleen are unremarkable. The right adrenal is unremarkable. Abdominal aorta, bowel and mesentery are unremarkable. Pelvis: The patient indicates he has an appendectomy. There is no ascites or adenopathy. The pelvic bowel loops are unremarkable except for descending colon and sigmoid colon diverticulosis without diverticulitis. There are multiple nodular densities in the subcutaneous fat in the anterior abdominal wall, possibly from subcutaneous injections. Impression: There is no hydronephrosis. There are no renal, ureteral or bladder calculi. There is diverticulosis without diverticulitis. There is no hemoperitoneum. No lumbar, sacral or pelvic fractures. There is a tiny gallbladder calculus. The patient has a known left adrenal adenoma. There are multiple nodular densities in the subcutaneous fat in the anterior abdominal wall, possibly subcutaneous injections. Signed by Alvaro Crouch MD 03/17/2017 09:01 A
[2017-03-17 09:28] LABS: ALBUMIN 3.3 GM/DL (3.2-5.2); ALBUMIN/GLOBULIN RATIO 0.92 (1.00-1.93); ALKALINE PHOSPHATASE 87 U/L (45-117); ALT/SGPT 33 U/L (12-78); AMYLASE 41 U/L (25-115); ANION GAP 8 MEQ/L (8-16); AST/SGOT 24 U/L (7-37); BILIRUBIN,DIRECT < 0.1 MG/DL (0.0-0.2); BILIRUBIN,TOTAL 0.3 MG/DL (0.2-1.0); BLOOD UREA NITROGEN 10 MG/DL (7-18); CALCIUM LEVEL 9.1 MG/DL (8.5-10.1); CARBON DIOXIDE LEVEL 30 MEQ/L (21-32); CHLORIDE LEVEL 105 MEQ/L (98-107); CREATININE FOR GFR 1.03 MG/DL (0.70-1.30); GLOMERULAR FILTRATION RATE > 60.0 (>56); GLUCOSE, FASTING 120 MG/DL (70-105); POTASSIUM SERUM 3.9 MEQ/L (3.5-5.1); SODIUM LEVEL 143 MEQ/L (136-145); TOTAL PROTEIN 6.9 GM/DL (6.4-8.2)
--- NOTE | 2017-03-17 09:40 | REP ---
CHEST, SINGLE VIEW: Single view of the chest is performed and compared to a prior study of 01/17/2017. There is mild cardiomegaly. There is no acute infiltrate. The mediastinal silhouette is unchanged. IMPRESSION: Mild cardiomegaly. No acute pulmonary disease. Signed by Alvaro Oleary MD 03/17/2017 05:41 P
[2017-03-17] MEDS ORDERED: NS 500 ML IV ONE (09:45)
--- NOTE | 2017-03-17 10:31 | REP ---
MR THORACIC SPINE WITHOUT CONTRAST: HISTORY: Radiculopathy. There is no disc bulge or herniation. There is an increase in the __amount___ epidural fat in the spinal canal. This extends from the T3 level inferior to the T7-8 level. There is minimal to mild effacement of the thecal sac without spinal cord compression. The spinal cord is normal in signal intensity. Increased signal intensity on T2-weighted images is present in the anterior inferior T8 vertebral body. This represents degenerative change. The vertebral bodies are normal in height. There is no subluxation. IMPRESSION: 1. There is no disc bulge or herniation. 2. There epidural lipomatosis without spinal cord compression. Fractures cannot be excluded. Incomplete MTDD
--- NOTE | 2017-03-17 10:54 | REP ---
MR LUMBAR SPINE WITHOUT CONTRAST: HISTORY: Back pain. Decreased signal intensity on T2-weighted images is present in the L5-S1 intervertebral disc. This represents disc degeneration. There is no disc bulge or herniation at the L1-2 through L3-4 levels. The nerves exit the neural foramen without compression. A diffuse disc bulge is present at the L4-5 level. There is hypertrophy of the ligamenta flava and posterior articulating facets. These findings produce minimal central canal stenosis. The L4 nerves exit the neural foramina without compression. A diffuse disc bugle and small central disc protrusion are present at the L5-S1 level. The disc protrusion abuts the thecal sac and S1 nerves. There is hypertrophy of the posterior articulating facets. The L5 nerves exit the neural foramina without compression. The conus medullaris is normal in appearance terminating at the level of the L1-2 intervertebral disc. Normal signal intensity is present in the lumbar vertebral bodies. IMPRESSION: 1. Minimal central canal stenosis at the L4-5 level secondary to disc bulge, ligamentous and facet hypertrophy. 2. Diffuse disc bugle and small central disc protrusion at the L5-S1 level. The disc protrusion abuts the thecal sac and S1 nerves. Unreviewed
[2017-03-17] MEDS ORDERED: MORPHINE 4 MG/ML 1ML SYRINGE IV ONE (11:15)
[2017-03-17 12:49] VITALS: BP 137/91
[2017-03-17] MEDS ORDERED: NORCOTAB PO (13:19)
--- NOTE | 2017-03-18 06:42 | ECGEPIP ---
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
== END 2017-03-17 13:40 | disposition home or self-care (01) ==
LOC: M ED 08:01
DX: M54.9 Dorsalgia, unspecified (principal); R10.9 Unspecified abdominal pain; I45.2 Bifascicular block; I51.7 Cardiomegaly; M51.26 Other intervertebral disc displacement, lumbar region; M51.27 Other intervertebral disc displacement, lumbosacral region; K57.90 Diverticulosis of intestine, part unspecified, without perforation or abscess without bleeding; K80.20 Calculus of gallbladder without cholecystitis without obstruction; D35.00 Benign neoplasm of unspecified adrenal gland; I50.9 Heart failure, unspecified; I25.2 Old myocardial infarction; I10 Essential (primary) hypertension; G43.909 Migraine, unspecified, not intractable, without status migrainosus; G47.30 Sleep apnea, unspecified; Z86.711 Personal history of pulmonary embolism; F17.200 Nicotine dependence, unspecified, uncomplicated; Z79.82 Long term (current) use of aspirin; Z79.899 Other long term (current) drug therapy; Z91.041 Radiographic dye allergy status
CPT/HCPCS: 70450; 71010; 72146; 72148; 74176; 80048; 80076; 82150; 83605; 83690; 85025; 85610; 85730; 86850; 86900; 86901; 93005; 93041; 96361; 96374; 96375; 96376; 99284; J2405

== ENCOUNTER → 2017-03-22 | Outpatient (REF) | payer MEDICARE, MEDICAID ==
[~2017-03-22] MED LIST changes: +NORCOTAB PO
[2017-03-22 17:23] LABS: BASO # 0.1 10^3/uL (0.0-0.2); EOS # 0.1 10^3/uL (0.0-0.50); EOS % 0.8 % (0.0-3.0); IMMATURE GRANULOCYTE % 0.1 % (0-0); LYMPH # 1.8 10^3/uL (1.5-4.5); LYMPH % 25.7 % (24.0-44.0); MEAN CORPUSCULAR HEMOGLOBIN 29.8 pg (27.0-33.0); MEAN CORPUSCULAR HGB CONC 32.6 g/dl (32.0-36.5); MEAN CORPUSCULAR VOLUME 91.5 fl (80.0-96.0); MONO # 0.7 10^3/uL (0.0-0.8); MONO % 10.3 % (0.0-5.0); NEUTROPHILS # 4.4 10^3/uL (1.8-7.7); NEUTROPHILS % 62.1 % (36.0-66.0); PLATELET COUNT, AUTOMATED 175 10^3/uL (150-450); RED CELL DISTRIBUTION WIDTH 13.3 % (11.5-14.5); WHITE BLOOD COUNT 7.1 10^3/uL (4.0-10.0)
[2017-03-22 18:10] LABS: ALBUMIN 3.5 GM/DL (3.2-5.2); ALBUMIN/GLOBULIN RATIO 1.03 (1.00-1.93); ALKALINE PHOSPHATASE 89 U/L (45-117); ALT/SGPT 21 U/L (12-78); ANION GAP 7 MEQ/L (8-16); AST/SGOT 15 U/L (7-37); BILIRUBIN,TOTAL 0.3 MG/DL (0.2-1.0); BLOOD UREA NITROGEN 10 MG/DL (7-18); CALCIUM LEVEL 9.2 MG/DL (8.5-10.1); CARBON DIOXIDE LEVEL 28 MEQ/L (21-32); CHLORIDE LEVEL 107 MEQ/L (98-107); CREATININE FOR GFR 0.91 MG/DL (0.70-1.30); GLOMERULAR FILTRATION RATE > 60.0 (>56); GLUCOSE, FASTING 82 MG/DL (70-105); POTASSIUM SERUM 4.1 MEQ/L (3.5-5.1); SODIUM LEVEL 142 MEQ/L (136-145); TOTAL PROTEIN 6.9 GM/DL (6.4-8.2)
== END ==
LOC: M SFHCPLAZ 16:13
PROVIDERS: ATTEND Physician Assistant Medical
DX: F17.210 Nicotine dependence, cigarettes, uncomplicated (principal)
CPT/HCPCS: 36415; 80053; 85025; G0463

== ENCOUNTER → 2017-04-17 | Outpatient (REF) | payer MEDICARE, MEDICAID ==
[2017-04-17 13:44] LABS: INR 0.96
[2017-04-20 00:07] LABS: F8 ACTIVITY FOR F8 PANEL 181 % (57-163); F8 ACTIVITY vWB FOR F8 PANEL 191 % (50-200); F8 ANTIGEN FOR F8 PANEL 216 % (50-200); INTERPRETATION: Note (.)
== END ==
LOC: M LAB REF 12:53
PROVIDERS: ATTEND Internal Medicine Medical Oncology
DX: I26.99 Other pulmonary embolism without acute cor pulmonale (principal)

== ENCOUNTER → 2017-06-05 | Outpatient (CLI) | payer MEDICARE, MEDICAID ==
[2017-06-05 18:57] LABS: ALBUMIN 3.6 GM/DL (3.2-5.2); ALKALINE PHOSPHATASE 97 U/L (45-117); ALT/SGPT 25 U/L (12-78); ANION GAP 5 MEQ/L (8-16); AST/SGOT 19 U/L (7-37); BILIRUBIN,TOTAL 0.4 MG/DL (0.2-1.0); BLOOD UREA NITROGEN 9 MG/DL (7-18); CALCIUM LEVEL 8.7 MG/DL (8.5-10.1); CARBON DIOXIDE LEVEL 28 MEQ/L (21-32); CHLORIDE LEVEL 106 MEQ/L (98-107); GLOMERULAR FILTRATION RATE > 60.0 (>56); GLUCOSE, FASTING 94 MG/DL (70-100); POTASSIUM SERUM 4.4 MEQ/L (3.5-5.1); SODIUM LEVEL 139 MEQ/L (136-145); TOTAL PROTEIN 7.2 GM/DL (6.4-8.2)
[2017-06-05 19:11] LABS: BASO % 0.5 % (0.0-1.0); EOS # 0.1 10^3/uL (0.0-0.50); EOS % 1.6 % (0.0-3.0); HEMATOCRIT 47.9 % (42.0-52.0); HEMOGLOBIN 15.8 g/dl (14.0-18.0); IMMATURE GRANULOCYTE % 0.3 % (0-0); LYMPH # 1.5 10^3/uL (1.5-4.5); LYMPH % 19.5 % (24.0-44.0); MEAN CORPUSCULAR HEMOGLOBIN 29.5 pg (27.0-33.0); MEAN CORPUSCULAR VOLUME 89.5 fl (80.0-96.0); MONO # 0.9 10^3/uL (0.0-0.8); MONO % 11.7 % (0.0-5.0); NEUTROPHILS % 66.4 % (36.0-66.0); PLATELET COUNT, AUTOMATED 158 10^3/uL (150-450); RED BLOOD COUNT 5.35 10^6/uL (4.30-6.10); WHITE BLOOD COUNT 7.5 10^3/uL (4.0-10.0)
== END ==
LOC: M LAB 17:59
DX: J06.9 Acute upper respiratory infection, unspecified (principal)
CPT/HCPCS: 71046

== ENCOUNTER → 2017-06-19 | Outpatient (REF) | payer MEDICARE, MEDICAID ==
[2017-06-21 08:06] LABS: HEPARIN LEVEL ANTI Xa 1.4 IU/mL (.)
== END ==
LOC: M LAB REF 12:35
DX: I26.99 Other pulmonary embolism without acute cor pulmonale (principal); Z79.899 Other long term (current) drug therapy
CPT/HCPCS: 85520

== ENCOUNTER → 2017-07-28 | Outpatient (CLI) | payer MEDICARE, MEDICAID | LOC: M RAD 15:57 | DX: R91.8 Other nonspecific abnormal finding of lung field (principal); R93.8 Abnormal findings on diagnostic imaging of other specified body structures | CPT/HCPCS: 71250 ==

== ENCOUNTER → 2017-11-01 | Outpatient (CLI) | payer MEDICARE, MEDICAID | LOC: M RAD 07:02 | DX: R10.12 Left upper quadrant pain (principal) | CPT/HCPCS: 76705 ==

== ENCOUNTER → 2017-11-06 | Outpatient (REF) | payer MEDICARE, MEDICAID ==
[2017-11-09 00:06] LABS: HEPARIN LEVEL ANTI Xa 0.8 IU/mL (.)
== END ==
LOC: M LAB REF 17:22
DX: I26.99 Other pulmonary embolism without acute cor pulmonale (principal)
CPT/HCPCS: 85520

== ENCOUNTER → 2017-11-24 | Outpatient (CLI) | payer MEDICARE, MEDICAID ==
[2017-11-24 10:15] LABS: CHOLESTEROL LEVEL 100 MG/DL (<200); HDL CHOLESTEROL 40 MG/DL (>40); LDL CHOLESTEROL 16.8 MG/DL (<100); NON-HDL-C 60 MG/DL; PROSTATIC SPECIFIC AG MONITOR 0.46 NG/ML (< 4.0); TRIGLYCERIDES LEVEL 216 MG/DL (<150)
== END ==
LOC: M LAB 07:49
DX: E78.2 Mixed hyperlipidemia (principal); Z12.5 Encounter for screening for malignant neoplasm of prostate
CPT/HCPCS: 80061

== ENCOUNTER → 2017-12-18 | Outpatient (CLI) | payer MEDICARE, MEDICAID | LOC: M RAD 08:21 | DX: R19.07 Generalized intra-abdominal and pelvic swelling, mass and lump (principal); N60.01 Solitary cyst of right breast; N63.10 Unspecified lump in the right breast, unspecified quadrant | CPT/HCPCS: 76705 ==

== ENCOUNTER → 2018-01-23 | Outpatient (REF) | payer MEDICARE, MEDICAID | LOC: M LAB REF 13:03 | DX: I26.99 Other pulmonary embolism without acute cor pulmonale (principal) | CPT/HCPCS: 85520 ==

== ENCOUNTER → 2018-03-06 | Outpatient (CLI) | payer MEDICARE, MEDICAID | LOC: M RAD 13:18 | DX: R91.1 Solitary pulmonary nodule (principal) | CPT/HCPCS: 71250 ==

== ENCOUNTER → 2018-04-02 | Outpatient (CLI) | payer MEDICARE, MEDICAID | LOC: M RAD 16:40 | DX: R51 Headache (principal) | CPT/HCPCS: 70450 ==

== ENCOUNTER → 2018-04-03 | Outpatient (REF) | payer MEDICARE, MEDICAID | LOC: M SFHCPLAZ 12:41 | DX: R10.84 Generalized abdominal pain (principal); Z53.8 Procedure and treatment not carried out for other reasons ==

== ENCOUNTER → 2018-04-03 | Outpatient (REF) | payer MEDICARE, MEDICAID | LOC: M SFHCPLAZ 15:45 | DX: R10.84 Generalized abdominal pain (principal) | CPT/HCPCS: 87507 ==

== ENCOUNTER → 2018-04-12 | Outpatient (CLI) | payer MEDICARE, MEDICAID ==
[2018-04-12 17:07] LABS: HEMATOCRIT 46.7 % (42.0-52.0); HEMOGLOBIN 15.5 g/dl (13.5-17.5); MEAN CORPUSCULAR HGB CONC 33.2 g/dl (32.0-36.5); MEAN CORPUSCULAR VOLUME 90.5 fl (80.0-96.0); PLATELET COUNT, AUTOMATED 202 10^3/uL (150-450); RED BLOOD COUNT 5.16 10^6/uL (4.30-6.10); RED CELL DISTRIBUTION WIDTH 13.5 % (11.5-14.5); WHITE BLOOD COUNT 7.4 10^3/uL (4.0-10.0)
[2018-04-12 17:41] LABS: ALBUMIN 3.5 GM/DL (3.2-5.2); ALBUMIN/GLOBULIN RATIO 0.97 (1.00-1.93); ALKALINE PHOSPHATASE 125 U/L (45-117); ALT/SGPT 29 U/L (12-78); ANION GAP 9 MEQ/L (8-16); AST/SGOT 15 U/L (7-37); BILIRUBIN,TOTAL 0.3 MG/DL (0.2-1.0); BLOOD UREA NITROGEN 9 MG/DL (7-18); C REACTIVE PROTEIN QUANTITATIV 2.32 MG/DL (0.00-0.30); CALCIUM LEVEL 8.5 MG/DL (8.8-10.2); CARBON DIOXIDE LEVEL 27 MEQ/L (21-32); CHLORIDE LEVEL 104 MEQ/L (98-107); CREATININE FOR GFR 0.96 MG/DL (0.70-1.30); GLOMERULAR FILTRATION RATE > 60.0 (>49); GLUCOSE, FASTING 89 MG/DL (70-100); LIPASE 92 U/L (73-393); POTASSIUM SERUM 3.9 MEQ/L (3.5-5.1); SODIUM LEVEL 140 MEQ/L (136-145); TOTAL PROTEIN 7.1 GM/DL (6.4-8.2)
[2018-04-12 17:56] LABS: ERYTHROCYTE SEDIMENTATION RATE 6 mm/hr (0-20)
== END ==
LOC: M LAB 16:38
DX: R10.84 Generalized abdominal pain (principal); Z79.899 Other long term (current) drug therapy; Z79.82 Long term (current) use of aspirin
CPT/HCPCS: 83690

== ENCOUNTER 2018-04-15 12:45 | Emergency (ER) | payer MEDICARE, MEDICAID ==
[2018-04-15 13:20] LABS: VENOUS BASE EXCESS 0.6 (-2.0-2.0); VENOUS HCO3 26.1 MEQ/L (23.0-27.0); VENOUS O2 SATURATION 95.4 % (60.0-80.0); VENOUS PARTIAL PRESSURE O2 73.5 mmHg (30.0-50.0); VENOUS PH 7.382 UNITS (7.330-7.430); VENOUS TOTAL CO2 27.5 MEQ/L (24.0-28.0)
[2018-04-15 13:27] LABS: BASO # 0.1 10^3/uL (0.0-0.2); BASO % 0.8 % (0.0-1.0); EOS # 0.2 10^3/uL (0.0-0.50); EOS % 2.4 % (0.0-3.0); HEMATOCRIT 45.5 % (42.0-52.0); HEMOGLOBIN 15.1 g/dl (13.5-17.5); IMMATURE GRANULOCYTE % 0.3 % (0-3.0); LYMPH # 1.9 10^3/uL (1.5-4.5); LYMPH % 26.1 % (24.0-44.0); MEAN CORPUSCULAR HGB CONC 33.2 g/dl (32.0-36.5); MEAN CORPUSCULAR VOLUME 90.5 fl (80.0-96.0); MONO # 0.4 10^3/uL (0.0-0.8); MONO % 6.1 % (0.0-5.0); NEUTROPHILS # 4.7 10^3/uL (1.8-7.7); NEUTROPHILS % 64.3 % (36.0-66.0); PLATELET COUNT, AUTOMATED 192 10^3/uL (150-450); RED BLOOD COUNT 5.03 10^6/uL (4.30-6.10); RED CELL DISTRIBUTION WIDTH 13.4 % (11.5-14.5); WHITE BLOOD COUNT 7.2 10^3/uL (4.0-10.0)
[2018-04-15] MEDS: MORPHINE 2 MG/ML 1ML SYRINGE (J2270) IV ×3 (13:27→15:23)
[2018-04-15] MEDS: NS 1,000 ML IV (13:28)
[2018-04-15] MEDS ORDERED: diphenhydrAMINE 50 MG CAP PO (13:30)
[2018-04-15] MEDS ORDERED: predniSONE 20 MG TAB PO (13:30)
[2018-04-15] MEDS: ALBUTEROL SULFATE 2.5 MG/0.5 ML INH NEB SOLN NEB (13:36)
[2018-04-15 13:38] LABS: ANION GAP 6 MEQ/L (8-16); BLOOD UREA NITROGEN 11 MG/DL (7-18); CARBON DIOXIDE LEVEL 28 MEQ/L (21-32); CHLORIDE LEVEL 107 MEQ/L (98-107); CK-MB VALUE MASS < 1.0 NG/ML (<3.6); CPK CREATINE PHOSPHOKINASE 82 U/L (39-308); CREATININE FOR GFR 1.01 MG/DL (0.70-1.30); GLOMERULAR FILTRATION RATE > 60.0 (>49); GLUCOSE, FASTING 167 MG/DL (70-100); MB/CK RELATIVE INDEX 1.22 (< OR =4); NT-PRO BNP 58 PG/ML (<125); POTASSIUM SERUM 3.7 MEQ/L (3.5-5.1); SODIUM LEVEL 141 MEQ/L (136-145); TROPONIN I < 0.02 NG/ML (< 0.10)
[2018-04-15] MEDS: dexameTHASONE 20 MG/5 ML VIAL (J1100) IV (13:48)
[2018-04-15] MEDS: diphenhydrAMINE INJ 50MG/ML VIAL (J1200) IV (13:48)
[2018-04-15] MEDS ORDERED: ISOVUE-370 76% 100ML VIAL (Q9967) As Ordered (14:35)
[2018-04-15 16:44] LABS: D-DIMER QUANT < 270 ng/ml (<500)
[2018-04-15] MEDS ORDERED: AZITHROMYCIN 250 MG TAB PO (17:30)
[2018-04-15] MEDS: OXYCODONE/APAP 5MG/325MG(BULK FOR ED) 1 TABLET PO (17:47)
== END 2018-04-15 17:57 | disposition home or self-care (01) ==
LOC: M ED 12:45
DX: J44.0 Chronic obstructive pulmonary disease with (acute) lower respiratory infection (principal); R07.1 Chest pain on breathing; R00.0 Tachycardia, unspecified; R06.02 Shortness of breath; F32.9 Major depressive disorder, single episode, unspecified; J45.909 Unspecified asthma, uncomplicated; R10.9 Unspecified abdominal pain; F17.210 Nicotine dependence, cigarettes, uncomplicated; Z91.041 Radiographic dye allergy status; Z86.711 Personal history of pulmonary embolism; Z79.899 Other long term (current) drug therapy; Z79.51 Long term (current) use of inhaled steroids; Z79.82 Long term (current) use of aspirin
CPT/HCPCS: J1200

== ENCOUNTER → 2018-04-30 | Outpatient (CLI) | payer MEDICARE, MEDICAID ==
[~2018-04-30] MED LIST changes: +AMBI5TAB PO; +DILT120C82; -FOLI1TAB4 PO; +FOLI1TAB5 PO; +GASTROGRAFIN SOLUTION 30ML (Q9963) As Ordered ONE; +ISOVUE-370 76% 100ML VIAL (Q9967) As Ordered ONE; +NAPR-885 PO; -NAPR500T3 PO; +PERC5TAB12 PO; +PRED10TA2 PO; +REME45TA PO; +TIZA2TA; +TIZA2TA PO; +VIIB10TA PO; +ZITH500T PO
--- NOTE | 2018-04-30 20:30 | REP ---
CT abdomen and pelvis with IV and oral contrast: History: Abdomen pain. Comparison study March 17, 2017. A prior study from June 28, [address] contrast dose: 100 mL of intravenous Isovue 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 The lung bases are clear. Minimal linear fibrosis is seen in the left base. The liver is normal in size homogeneous in texture. The spleen is unremarkable. There is a tiny accessory splenule along the inferior aspect of the spleen. There is a tiny focal calcification in a periportal lymph node unchanged. No gallbladder abnormality is observed. No pancreatic abnormality is seen. The right adrenal gland is normal. There is a stable benign adrenal adenoma left adrenal gland measuring 5.2 cm in greatest diameter. No retroperitoneal mass or adenopathy is observed. The kidneys enhance symmetrically. No hydronephrosis is seen. Small and large intestinal bowel loops are unremarkable except for some left colonic diverticulosis. There is no CT evidence of diverticulitis. The appendix is surgically absent. There are dystrophic calcifications in the prostate. Urinary bladder is unremarkable. No abdominal wall defect is seen. There is some subcutaneous soft tissue nodularity bilaterally which may reflect subcutaneous injection sites. Impression: No acute intra-abdominal abnormality. Stable benign left adrenal adenoma. The appendix is surgically absent. Electronically Signed by Bernard Caraballo MD 04/30/2018 08:45 P
== END ==
LOC: M RAD 11:42
PROVIDERS: ATTEND Student in an Organized Health Care Education/Training Program
DX: D35.00 Benign neoplasm of unspecified adrenal gland (principal); R10.9 Unspecified abdominal pain; Z98.890 Other specified postprocedural states
CPT/HCPCS: 74177; Q9963; Q9967

== ENCOUNTER → 2018-05-27 | Outpatient (CLI) | payer MEDICARE, MEDICAID ==
[~2018-05-27] MED LIST changes: +FOLI1TAB11 PO; -FOLI1TAB5 PO; -GASTROGRAFIN SOLUTION 30ML (Q9963) As Ordered ONE; -ISOVUE-370 76% 100ML VIAL (Q9967) As Ordered ONE; -NIAC1TAB PO; +NIAC500T64 PO
--- NOTE | 2018-05-29 11:01 | SLEEPCENT ---
DATE OF STUDY: 05/27/2018 ORDERED BY: Dr. Reyes Nocturnal polysomnography was performed for retitration of pressure therapy in this patient with obstructive sleep apnea syndrome. For testing, a ResMed AirFit F20 full face mask of large size was used. An initial bilevel pressure of 17 over 13 was applied to the circuit and the lights were extinguished. 7 hours and 53 minutes of data were reviewed. There were 387 minutes of sleep identified. Sleep latency was mildly prolonged at 21 minutes. REM latency was prolonged at 161 minutes. Sleep architecture improved, and indeed there was evidence of REM rebound with an overall sleep efficiency of 82.9%. The patient's electrocardiogram showed a sinus rhythm with an average heart rate of 75 beats per minute. EEG showed normal waveforms for awake and sleep. Respiratory events were best palliated with a bilevel pressure device inspiratory 19 over expiratory of 15. There was some activity noted in the limb leads. Limb movement arousal index was 6.3. IMPRESSION: Obstructive sleep apnea syndrome (G47.33). RECOMMENDATIONS: Nightly use of pressure therapy, inspiratory 19 over expiratory of 15. cc: Janes Hickman MD
== END ==
LOC: M SLEEP 20:00
PROVIDERS: ATTEND Internal Medicine Pulmonary Disease
DX: G47.33 Obstructive sleep apnea (adult) (pediatric) (principal)

== ENCOUNTER → 2018-06-26 | Outpatient (CLI) | payer MEDICARE, MEDICAID ==
[~2018-06-26] MED LIST changes: +ISOVUE-370 76% 100ML VIAL (Q9967) As Ordered ONE
--- NOTE | 2018-06-26 16:29 | REP ---
CT NECK WITH CONTRAST: HISTORY: Dysphonia. CONTRAST: Isovue-370, 75 mL COMPARISON: 10/08/2009 The naso-, rubens- and hypopharynx, larynx and subglottic trachea are normal in appearance. The salivary and thyroid glands are normal in size and density. Small lymph nodes less than 1 cm in size are present in the internal jugular chains, posterior triangles and submandibular areas. Degenerative change is present in the cervical spine. A congenital block vertebra is present at the C2-3 level. The lung apices are clear. The visualized sinuses are clear. IMPRESSION: There is no neck mass or adenopathy. Electronically Signed by Nino Hutton MD 06/26/2018 04:31 P
== END ==
LOC: M RAD 15:29
PROVIDERS: ATTEND Otolaryngology
DX: R49.0 Dysphonia (principal)
CPT/HCPCS: 70491; G0463; Q9967

== ENCOUNTER → 2018-08-27 | Outpatient (REF) | payer MEDICARE, MEDICAID ==
[~2018-08-27] MED LIST changes: -/ADVA50050 IN; -/ADVA50050 INH; -/DULO30CA PO; -/PANT40TA OR; -/ROPI1TA PO; -/TIOT18INH INH; -/WARF5TA PO; +ADVA1AER2 IN; +ADVA1AER2 INH; +BUSP15TA47 PO; +COUM1TAB17 PO; +CYMB1CAP5 PO; -DILT120C82; +DILT1CAP PO; -ENOX15SY SC; +ESZO1TAB5 PO; +HYDR-3715 PO; -ISOVUE-370 76% 100ML VIAL (Q9967) As Ordered ONE; +KEPP1TAB PO; +LAMO25TA4 PO; +LOVE0.8I3 SC; +MAGN200T PO; +MULT1TAB10 PO; +MULTCAP PO; -NORCOTAB PO; +PROAAER10 INH; +PROT1TAB2 OR; +REQU1TAB16 PO; +SM M250T PO; +SPIR1CAP INH; +VITA50TA43 PO; +VITATAB11 PO; +VITATAB73 PO
[2018-08-27 13:37] LABS: BASO # 0.1 10^3/uL (0.0-0.2); BASO % 0.6 % (0.0-1.0); EOS # 0.2 10^3/uL (0.0-0.50); HEMATOCRIT 47.9 % (42.0-52.0); HEMOGLOBIN 15.5 g/dl (13.5-17.5); LYMPH # 1.9 10^3/uL (1.5-4.5); LYMPH % 23.7 % (24.0-44.0); MEAN CORPUSCULAR HEMOGLOBIN 30.4 pg (27.0-33.0); MEAN CORPUSCULAR HGB CONC 32.4 g/dl (32.0-36.5); MEAN CORPUSCULAR VOLUME 93.9 fl (80.0-96.0); MONO # 0.7 10^3/uL (0.0-0.8); MONO % 8.3 % (0.0-5.0); NEUTROPHILS # 5.2 10^3/uL (1.8-7.7); NEUTROPHILS % 64.9 % (36.0-66.0); PLATELET COUNT, AUTOMATED 160 10^3/uL (150-450)
[2018-08-27 13:52] LABS: ALBUMIN 3.9 GM/DL (3.2-5.2); ALT/SGPT 37 U/L (12-78); BILIRUBIN,TOTAL 0.5 MG/DL (0.2-1.0); BLOOD UREA NITROGEN 9 MG/DL (7-18); CALCIUM LEVEL 9.4 MG/DL (8.8-10.2); CARBON DIOXIDE LEVEL 31 MEQ/L (21-32); CHLORIDE LEVEL 104 MEQ/L (98-107); CREATININE FOR GFR 0.95 MG/DL (0.70-1.30); GLOMERULAR FILTRATION RATE > 60.0 (>49); GLUCOSE, FASTING 94 MG/DL (70-100); POTASSIUM SERUM 4.9 MEQ/L (3.5-5.1); SODIUM LEVEL 139 MEQ/L (136-145); TOTAL PROTEIN 7.1 GM/DL (6.4-8.2)
== END ==
LOC: M SFHCPLAZ 11:29
PROVIDERS: ATTEND Family Medicine
DX: R10.9 Unspecified abdominal pain (principal); R14.0 Abdominal distension (gaseous); R63.5 Abnormal weight gain
CPT/HCPCS: 80053; 81002; 83880; 85025; G0463

== ENCOUNTER → 2018-09-03 | Outpatient (CLI) | payer MEDICAID, MEDICARE ==
[~2018-09-03] MED LIST changes: +GASTROGRAFIN SOLUTION 30ML (Q9963) As Ordered ONE; +ISOVUE-370 76% 100ML VIAL (Q9967) As Ordered ONE; -MULTCAP PO; -SM M250T PO; -VITA50TA43 PO; -VITATAB73 PO
--- NOTE | 2018-09-03 19:42 | REP ---
CT ABDOMEN AND PELVIS WITH ORAL AND IV CONTRAST, CT ABDOMEN WITHOUT IV CONTRAST. TECHNIQUE: Axial noncontrast images through the abdomen followed by contrast-enhanced images through the abdomen and pelvis using 100 mL Isovue 370 intravenous contrast material, with coronal and sagittal reformations. COMPARISON: 04/30/2018 as well as other prior exams. The visualized lung bases demonstrate no acute abnormality. Liver and gallbladder appear unremarkable. Spleen and right adrenal are unremarkable. Left adrenal adenoma is stable with a maximum diameter of approximately 5 cm. Pancreas and kidneys are unremarkable. There is no hydronephrosis bilaterally. There is mild atherosclerotic calcification of the abdominal aorta without aneurysm. There is no adenopathy. There is no free air or free fluid. There is no bowel wall thickening. There is no pelvic mass. Urinary bladder is not well distended and not well evaluated. There are degenerative changes of the spine. IMPRESSION: No change since prior studies. No acute abnormalities. Stable left adrenal adenoma. No free air of free fluid. No new bowel pathology identified and no evidence of mass. Electronically Signed by Alvaro Oleary MD 09/05/2018 09:57 A
== END ==
LOC: M RAD 16:00
PROVIDERS: ATTEND Family Medicine
DX: R14.0 Abdominal distension (gaseous) (principal); R63.5 Abnormal weight gain
CPT/HCPCS: 74178; Q9963; Q9967

== ENCOUNTER 2018-10-04 11:47 | Day surgery (SDC) | payer MEDICARE, MEDICAID ==
[~2018-10-04] VITALS: Ht 175.3 cm; Wt 124.9 kg
[~2018-10-04 11:47] MED LIST changes: -GASTROGRAFIN SOLUTION 30ML (Q9963) As Ordered ONE; -ISOVUE-370 76% 100ML VIAL (Q9967) As Ordered ONE; +MULTCAP PO; +NS 1,000 ML IV ONE; +SM M250T PO; +VITA50TA43 PO; +VITATAB73 PO
[2018-10-04] MEDS ORDERED: BUDE0.5S6 INH (12:55)
[2018-10-04] MEDS ORDERED: ALBU83IN NEB (12:55)
[2018-10-04] MEDS ORDERED: LEVALBUTEROL 1.25 MG/0.5 ML CONCENTRATE NEB As Ordered ONE (13:05)
[2018-10-04] MEDS ORDERED: LEVALBUTEROL 1.25 MG/0.5 ML CONCENTRATE NEB NEB ONE (13:15)
[2018-10-04] MEDS ORDERED: PROPOFOL 200 MG/20 ML VIAL As Ordered ONE ×2 (13:39→13:55)
--- NOTE | 2018-10-04 13:56 | ROOR ---
Patient Name: Moses Espinal Procedure Date: 10/04/2018 1:36 PM Date of : 1960 Age: 58 Room: [facility] Gender: Male Note Status: Finalized Procedure: Colonoscopy Indications: Diarrhea Providers: Joao Crooks Jr, MD Referring MD: SAUL NICHOLS MD Requesting Provider: Medicines: Propofol per Anesthesia Complications: No immediate complications. Procedure: Pre-Anesthesia Assessment: - Prior to the procedure, a History and Physical was performed, and patient medications and allergies were reviewed. The patient is competent. The risks and benefits of the procedure and the sedation options and risks were discussed with the patient. All questions were answered and informed consent was obtained. Patient identification and proposed procedure were verified by the physician and the nurse in the pre-procedure area and in the procedure room. Mental Status Examination: alert and oriented. Airway Examination: normal oropharyngeal airway and neck mobility. Respiratory Examination: clear to auscultation. CV Examination: normal. ASA Grade Assessment: II - A patient with mild systemic disease. After reviewing the risks and benefits, the patient was deemed in satisfactory condition to undergo the procedure. The anesthesia plan was to use moderate sedation / analgesia (conscious sedation). Immediately prior to administration of medications, the patient was re-assessed for adequacy to receive sedatives. The heart rate, respiratory rate, oxygen saturations, blood pressure, adequacy of pulmonary ventilation, and response to care were monitored throughout the procedure. The physical status of the patient was re-assessed after the procedure. The Colonoscope was introduced through the anus and advanced to the cecum, identified by appendiceal orifice and ileocecal valve. The colonoscopy was performed without difficulty. The patient tolerated the procedure well. The quality of the bowel preparation was fair. Findings: The rectum, recto-sigmoid colon, descending colon, transverse colon, ascending colon, cecum and appendiceal orifice appeared normal. Multiple small and large-mouthed diverticula were found in the sigmoid colon. Internal hemorrhoids were found during endoscopy. The hemorrhoids were Grade II (internal hemorrhoids that prolapse but reduce spontaneously) and Grade III (internal hemorrhoids that prolapse but require manual reduction). Impression: - Preparation of the colon was fair. - The rectum, recto-sigmoid colon, descending colon, transverse colon, ascending colon, cecum and appendiceal orifice are normal. - Diverticulosis in the sigmoid colon. - Internal hemorrhoids. - No specimens collected. Recommendation: - Repeat colonoscopy in 10 years for screening purposes. Joao Crooks MD Joao Crooks Jr, MD 10/04/2018 1:55:58 PM Electronically signed by Joao Crooks Jr, MD Number of Addenda: 0 Note Initiated On: 10/04/2018 1:36 PM Estimated Blood Loss: Estimated blood loss: none.
[2018-10-04 14:30] VITALS: BP 124/75
== END 2018-10-04 14:40 | disposition home or self-care (01) ==
LOC: M OPP 11:47
PROVIDERS: ATTEND Surgery
DX: K64.2 Third degree hemorrhoids (principal); K57.30 Diverticulosis of large intestine without perforation or abscess without bleeding; R19.7 Diarrhea, unspecified; R63.5 Abnormal weight gain; F17.210 Nicotine dependence, cigarettes, uncomplicated; Z79.82 Long term (current) use of aspirin; Z79.899 Other long term (current) drug therapy; Z91.041 Radiographic dye allergy status; Z88.8 Allergy status to other drugs, medicaments and biological substances; Z88.3 Allergy status to other anti-infective agents

== ENCOUNTER 2018-10-25 08:40 | Day surgery (SDC) | payer MEDICARE, MEDICAID ==
[~2018-10-25] VITALS: Ht 175.3 cm; Wt 121.6 kg
[~2018-10-25 08:40] MED LIST changes: +ALBU83IN NEB; +BUDE0.5S6 INH; -NS 1,000 ML IV ONE
[2018-10-25] MEDS ORDERED: dexameTHASONE 4 MG/ML 1ML VIAL (J1100) IV ONE (09:00)
[2018-10-25] MEDS ORDERED: LR 1,000 ML IV ONE (09:00)
[2018-10-25] MEDS ORDERED: MIDAZOLAM INJ 2 MG/2 ML VIAL (J2250) As Ordered ONE (09:41)
[2018-10-25] MEDS ORDERED: fentaNYL 100 MCG/2 ML INJECTION (J3010) As Ordered ONE (09:41)
[2018-10-25] MEDS ORDERED: propofoL 200 MG/20 ML VIAL As Ordered ONE (09:42)
[2018-10-25] MEDS ORDERED: dexameTHASONE 4 MG/ML 1ML VIAL (J1100) As Ordered ONE (09:44)
[2018-10-25] MEDS ORDERED: ONDANSETRON 4MG/2ML VIAL (J2405) As Ordered ONE (09:44)
[2018-10-25] MEDS ORDERED: REMIFENTANIL 1MG 3ML VIAL As Ordered ONE (10:41)
[2018-10-25] MEDS ORDERED: ROCURONIUM BROMIDE 50 MG/5 ML VIAL As Ordered ONE (10:43)
[2018-10-25] MEDS ORDERED: METHYLENE BLUE 0.5% (5MG/ML) 10 ML AMP (PROVAYBLUE)(Q9968 PER 1MG) As Ordered ONE (11:11)
[2018-10-25] MEDS ORDERED: OXYMETAZOLINE NASAL SPRAY (AFRIN) As Ordered ONE (11:11)
[2018-10-25] MEDS ORDERED: LIDOCAINE 2% INJ 100 MG/5 ML SDV (FOR ANES.) As Ordered ONE (11:32)
[2018-10-25] MEDS ORDERED: SUGAMMADEX SODIUM 500 MG/5 ML VIAL (BRIDION) As Ordered ONE (11:58)
[2018-10-25] MEDS ORDERED: ALBUTEROL SULFATE 2.5 MG/0.5 ML INH NEB SOLN As Ordered ONE (12:23)
[2018-10-25] MEDS ORDERED: LR 1,000 ML IV SCH ×2 (12:30→12:45)
[2018-10-25] MEDS ORDERED: ONDANSETRON 4MG/2ML VIAL (J2405) IV PRN (12:30)
[2018-10-25] MEDS ORDERED: ALBUTEROL SULFATE 2.5 MG/0.5 ML INH NEB SOLN INH ONE (12:30)
[2018-10-25] MEDS: oxyCODONE 5MG TAB PO PRN ×2 (12:43→13:15)
[2018-10-25 14:50] VITALS: BP 122/66
[2018-11-05] MEDS ORDERED: [UNRECOGNIZED DRUG - REMARK] PO (13:13)
[2018-11-06] MEDS ORDERED: [UNRECOGNIZED DRUG - REMARK] PO ×3 (14:37→16:17)
[2018-11-12] MEDS ORDERED: [UNRECOGNIZED DRUG - REMARK] PO ×2 (14:45→15:06)
--- NOTE | 2018-12-05 14:40 | RO ---
DATE OF OPERATION: 10/25/2018 PREOPERATIVE DIAGNOSES: 1. dysphonia 2. Leukoplakia of the vocal cords. POSTOPERATIVE DIAGNOSES: 1. dysphonia 2. Leukoplakia of the vocal cords. PROCEDURE PERFORMED: Direct suspension microlaryngoscopy with biopsy of the left and right vocal cords SURGEON: David Canales MD GENERAL HELPER: ANESTHESIA: General. CLINICAL PREAMBLE: This 58-year-old man presented to the office with complaint of hoarseness. Physical examination revealed leukoplakia on the left vocal cord on flexible laryngoscopy had been noted. Management options including surgery listed above have been discussed with the patient. He understood and consented to the procedure. OR NARRATION: Patient was identified in the preop holding and brought to the operating room in stable condition. In supine position on the operating room table, the patient received general anesthesia followed by orotracheal intubation without incident. The patient was prepped and draped in the usual fashion for the procedure. Bimanual palpation of the oral tongue, base of tongue, buccal mucosa, and posterior pharyngeal wall showed no evidence of discrete nodule. The dentition was well protected. Using the Dedo-Pilling laryngoscope, inspection of the mucosa of the oral cavity, oropharynx, hypopharynx showed no evidence of discrete ulcerative lesion. The Dedo-Pilling laryngoscope was then suspended on the [place] stand to visualize the supraglottic and the vocal cord region. No mucosal ulceration lesion noted in the supraglottic area. A leukoplakia was noted over the anterior one-third of the left vocal cord. This was biopsied. The right vocal cord appeared erythematous as well. Biopsy was also obtained from the right vocal cord as well. Hemostasis achieved by using cottonoid pledgets soaked in Afrin solution. At the end of the procedure, sponge and instrument counts were correct. No complications were encountered. Estimated blood loss was less than 5 mL. General anesthesia was reversed and the patient was extubated and brought to the recovery room in stable condition. [place]
[2019-01-07] MEDS ORDERED: LOVE0.01 SC (09:49)
[2019-01-07] MEDS ORDERED: [UNRECOGNIZED DRUG - REMARK] PO (09:49)
[2019-01-28] MEDS ORDERED: ACET1SOL10 PO (10:30)
[2019-01-30] MEDS ORDERED: LOVE0.01 SC (11:38)
[2019-02-15] MEDS ORDERED: ACET1SOL10 PO (16:40)
[2019-03-12] MEDS ORDERED: ACET1SOL10 PO (09:01)
[2019-03-22] MEDS ORDERED: ACET1SOL10 PO (09:39)
== END 2018-10-25 15:00 | disposition home or self-care (01) ==
LOC: M SDC 08:40
PROVIDERS: ATTEND Otolaryngology
DX: J38.3 Other diseases of vocal cords (principal); I11.0 Hypertensive heart disease with heart failure; I50.9 Heart failure, unspecified; J45.909 Unspecified asthma, uncomplicated; J43.9 Emphysema, unspecified; E78.5 Hyperlipidemia, unspecified; G47.33 Obstructive sleep apnea (adult) (pediatric); I67.1 Cerebral aneurysm, nonruptured; I25.119 Atherosclerotic heart disease of native coronary artery with unspecified angina pectoris; I25.2 Old myocardial infarction; I73.9 Peripheral vascular disease, unspecified; K21.9 Gastro-esophageal reflux disease without esophagitis; K52.9 Noninfective gastroenteritis and colitis, unspecified; K57.32 Diverticulitis of large intestine without perforation or abscess without bleeding; M12.9 Arthropathy, unspecified; R06.02 Shortness of breath; F12.90 Cannabis use, unspecified, uncomplicated; L30.9 Dermatitis, unspecified; M32.9 Systemic lupus erythematosus, unspecified; F41.9 Anxiety disorder, unspecified; F31.9 Bipolar disorder, unspecified; F03.90 Unspecified dementia, unspecified severity, without behavioral disturbance, psychotic disturbance, mood disturbance, and anxiety; F32.9 Major depressive disorder, single episode, unspecified; F43.10 Post-traumatic stress disorder, unspecified; G43.909 Migraine, unspecified, not intractable, without status migrainosus; G62.9 Polyneuropathy, unspecified; N52.9 Male erectile dysfunction, unspecified; F17.210 Nicotine dependence, cigarettes, uncomplicated; Z91.041 Radiographic dye allergy status; Z79.899 Other long term (current) drug therapy; Z86.711 Personal history of pulmonary embolism; Z86.718 Personal history of other venous thrombosis and embolism; Z86.14 Personal history of Methicillin resistant Staphylococcus aureus infection
CPT/HCPCS: 31535; 88305; J1100; J2250; J2405; J3010; Q9968

== ENCOUNTER → 2019-01-18 | Outpatient (REF) | payer MEDICARE, MEDICAID ==
[~2019-01-18] MED LIST changes: +[UNRECOGNIZED DRUG - REMARK] PO
[2019-01-18 12:46] LABS: INR 1.02; PROTHROMBIN TIME 13.1 SECONDS (11.8-14.0)
[2019-01-18 12:47] LABS: PARTIAL THROMBOPLASTIN TIME 35.3 SECONDS (25.0-38.4)
[2019-01-18 12:54] LABS: COLLAGEN EPINEPHRINE 155 SECONDS (74-162)
[2019-01-18 12:58] LABS: BASO # 0.1 10^3/uL (0.0-0.2); BASO % 0.7 % (0.0-1.0); EOS # 0.1 10^3/uL (0.0-0.5); EOS % 1.4 % (0.0-3.0); HEMATOCRIT 50.9 % (42.0-52.0); HEMOGLOBIN 16.6 g/dl (13.5-17.5); LYMPH # 2.6 10^3/uL (1.5-5.0); LYMPH % 25.1 % (24.0-44.0); MEAN CORPUSCULAR HEMOGLOBIN 30.6 pg (27.0-33.0); MEAN CORPUSCULAR HGB CONC 32.6 g/dl (32.0-36.5); MEAN CORPUSCULAR VOLUME 93.7 fl (80.0-96.0); MONO # 0.8 10^3/uL (0.0-0.8); NEUTROPHILS # 6.6 10^3/uL (1.5-8.5); NEUTROPHILS % 64.4 % (36.0-66.0); PLATELET COUNT, AUTOMATED 211 10^3/uL (150-450); RED BLOOD COUNT 5.43 10^6/uL (4.30-6.10); WHITE BLOOD COUNT 10.3 10^3/uL (4.0-10.0)
[2019-01-18 13:32] LABS: ALBUMIN 3.9 GM/DL (3.2-5.2); ALT/SGPT 28 U/L (12-78); BILIRUBIN,TOTAL 0.4 MG/DL (0.2-1.0); BLOOD UREA NITROGEN 11 MG/DL (7-18); CALCIUM LEVEL 9.8 MG/DL (8.8-10.2); CARBON DIOXIDE LEVEL 29 MEQ/L (21-32); CHLORIDE LEVEL 102 MEQ/L (98-107); CREATININE FOR GFR 1.01 MG/DL (0.70-1.30); GAMMA GLUTAMYLTRANSPEPTIDASE 51 U/L (15-85); GLOMERULAR FILTRATION RATE > 60.0 (>49); GLUCOSE, FASTING 87 MG/DL (70-100); LIPASE 66 U/L (73-393); POTASSIUM SERUM 4.2 MEQ/L (3.5-5.1); SODIUM LEVEL 141 MEQ/L (136-145); TOTAL PROTEIN 7.5 GM/DL (6.4-8.2)
== END ==
LOC: M SFHCPLAZ 10:56
PROVIDERS: ATTEND Family Medicine
DX: R10.84 Generalized abdominal pain (principal); Z79.01 Long term (current) use of anticoagulants

== ENCOUNTER → 2019-01-28 | Outpatient (CLI) | payer MEDICARE, MEDICAID ==
[~2019-01-28] MED LIST changes: +ACET1SOL10 PO
[2019-01-28 10:52] LABS: APPEARANCE, URINE CLEAR (CLEAR); BACTERIA, URINE AUTO NEGATIVE (NEGATIVE); BILIRUBIN, URINE AUTO NEGATIVE (NEGATIVE); BLOOD, URINE BLOOD NEGATIVE (NEGATIVE); COLOR, URINE YELLOW (YELLOW); GLUCOSE, URINE (UA) AUTO NEGATIVE (NEGATIVE); KETONE, URINE AUTO NEGATIVE (NEGATIVE); LEUKOCYTE ESTERASE, URINE AUTO NEGATIVE (NEGATIVE); MUCUS, URINE SMALL (NEGATIVE); NITRITE, URINE AUTO NEGATIVE (NEGATIVE); PROTEIN, URINE AUTO NEGATIVE (NEGATIVE); RBC, URINE AUTO 3 /HPF (0-3); SPECIFIC GRAVITY URINE AUTO 1.015 (1.002-1.035); SQUAMOUS EPITHELIAL CELL UR AU 0 /HPF (0-6); UROBILINOGEN, URINE AUTO 0.2 mg/dL (0.0-2.0); WBC, URINE AUTO 0 /HPF (0-3)
[2019-01-28 11:00] LABS: BASO # 0.1 10^3/uL (0.0-0.2); BASO % 0.9 % (0.0-1.0); EOS # 0.1 10^3/uL (0.0-0.5); EOS % 1.8 % (0.0-3.0); HEMATOCRIT 49.6 % (42.0-52.0); HEMOGLOBIN 16.2 g/dl (13.5-17.5); LYMPH # 1.9 10^3/uL (1.5-5.0); LYMPH % 24.2 % (24.0-44.0); MEAN CORPUSCULAR HEMOGLOBIN 30.9 pg (27.0-33.0); MEAN CORPUSCULAR HGB CONC 32.7 g/dl (32.0-36.5); MEAN CORPUSCULAR VOLUME 94.5 fl (80.0-96.0); MONO # 0.6 10^3/uL (0.0-0.8); MONO % 7.2 % (0.0-5.0); NEUTROPHILS # 5.2 10^3/uL (1.5-8.5); NEUTROPHILS % 65.5 % (36.0-66.0); PLATELET COUNT, AUTOMATED 175 10^3/uL (150-450); RED BLOOD COUNT 5.25 10^6/uL (4.30-6.10); WHITE BLOOD COUNT 7.9 10^3/uL (4.0-10.0)
[2019-01-28 11:22] LABS: BLOOD UREA NITROGEN 11 MG/DL (7-18); CALCIUM LEVEL 9.3 MG/DL (8.8-10.2); CARBON DIOXIDE LEVEL 29 MEQ/L (21-32); CHLORIDE LEVEL 105 MEQ/L (98-107); CREATININE FOR GFR 0.94 MG/DL (0.70-1.30); GLOMERULAR FILTRATION RATE > 60.0 (>49); GLUCOSE, FASTING 85 MG/DL (70-100); POTASSIUM SERUM 4.3 MEQ/L (3.5-5.1); SODIUM LEVEL 141 MEQ/L (136-145)
--- NOTE | 2019-01-29 03:50 | REP ---
Clinical: Cerebral aneurysm . Comparison: 06/05/2017 . Findings: The mediastinum and cardiac silhouette are stable and within normal limits for portable technique. The lung ballesteros demonstrate chronic-appearing changes without acute consolidation, effusion, or pneumothorax. Skeletal structures are intact. Impression: No acute cardiopulmonary process appreciated. Electronically Signed by Nik Syed MD 01/29/2019 03:42 A
--- NOTE | 2019-01-29 08:56 | ECGEPIP ---
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
== END ==
LOC: M LAB 09:59
PROVIDERS: ATTEND Neurological Surgery
DX: I67.1 Cerebral aneurysm, nonruptured (principal)

== ENCOUNTER → 2019-02-21 | Outpatient (CLI) | payer MEDICARE, MEDICAID ==
[~2019-02-21] MED LIST changes: +E-Z-GAS II EFFERVESCENT PACKET (SODIUM BICARB./CITRIC ACID/SIMETHICONE) As Ordered ONE; +E-Z-HD 98% w/w 340GM SUSP BTL As Ordered ONE; +E-Z-PAQUE 96% w/w SUSP 176GM BTL As Ordered ONE; +ISOVUE-370 76% 100ML VIAL (Q9967) As Ordered ONE
--- NOTE | 2019-02-21 10:40 | REP ---
Soft-tissue neck CT study with IV contrast: History: Dysphasia. Dysphonia. Vocal cord leukoplakia. Comparison neck CT study June 26, 2018. CT contrast dose: 75 mL of intravenous Isovue 370. Findings: There is developmental fusion of the disc and bilateral facets at this C2-3 level as noted previously. There are degenerative disc changes at C4-5, C5-6, and C6-7 with anterior osteophyte formation most pronounced at C5-6. No intraorbital abnormality is seen. There is no MR evidence of significant paranasal sinus disease. There is rightward deviation of the nasal septum. The parotid and submandibular glands are symmetric and unremarkable. Thyroid lobes are normal in appearance and size. They are homogeneous. There is no evidence of cervical lymphadenopathy. Tonsillar and peritonsillar soft tissues are unremarkable. The epiglottis and aryepiglottic folds are unremarkable. There is no evidence of glottic or subglottic mass or narrowing. The lung apices are clear. Impression: No neck mass or adenopathy seen. No glottic or subglottic airway lesion seen. 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 Degenerative disc disease most pronounced at C5-6. Electronically Signed by Bernard Caraballo MD 02/21/2019 10:53 A
[2019-02-21 10:48] LABS: BLOOD UREA NITROGEN 11 MG/DL (7-18); CREATININE FOR GFR 0.98 MG/DL (0.70-1.30); GLOMERULAR FILTRATION RATE > 60.0 (>49)
--- NOTE | 2019-02-22 09:17 | REP ---
Esophagram The procedure was performed under the direct supervision of Dr. Oleary. The images were reviewed with Dr. Oleary. A single view PA chest x-ray is submitted as a wildland fire fighter film. There is no change compared to a previous chest x-ray performed on 01/28/2019. Liquid barium and gas producing granules were given in the erect position as well as liquid barium in the prone oblique positions in order to perform a double contrast esophagram examination. The oral and pharyngeal stages of deglutition are unremarkable. There are esophageal transport there are tertiary waves. There is no esophagitis, stricture, mucosal ring or hiatal hernia. Gastroesophageal reflux is not demonstrated on this examination. Impression: there are tertiary waves demonstrated. Otherwise, unremarkable double contrast esophagram examination. 1 minute of fluoro time was utilized for this procedure. Electronically Signed by LOUISA Morrow 02/21/2019 03:48 P Electronically Signed by Alvaro Oleary MD 02/22/2019 09:07 A
== END ==
LOC: M RAD 08:27
PROVIDERS: ATTEND Otolaryngology
DX: R49.0 Dysphonia (principal); R13.10 Dysphagia, unspecified; M50.322 Other cervical disc degeneration at C5-C6 level; Q76.49 Other congenital malformations of spine, not associated with scoliosis; J38.3 Other diseases of vocal cords
CPT/HCPCS: 36415; 70491; 74220; 82565; 84520; Q9967

== ENCOUNTER 2019-02-22 12:36 | Day surgery (SDC) | payer MEDICARE, MEDICAID ==
[~2019-02-22] VITALS: Ht 175.3 cm; Wt 126.9 kg
[~2019-02-22 12:36] MED LIST changes: -E-Z-GAS II EFFERVESCENT PACKET (SODIUM BICARB./CITRIC ACID/SIMETHICONE) As Ordered ONE; -E-Z-HD 98% w/w 340GM SUSP BTL As Ordered ONE; -E-Z-PAQUE 96% w/w SUSP 176GM BTL As Ordered ONE; -ISOVUE-370 76% 100ML VIAL (Q9967) As Ordered ONE; +LIDOCAINE 2% INJ 100 MG/5 ML SDV (FOR ANES.) As Ordered ONE; +NS 1,000 ML IV ONE; +PROPOFOL 200 MG/20 ML VIAL As Ordered ONE
[2019-02-22] MEDS ORDERED: ALBUTEROL SULFATE 2.5 MG/0.5 ML INH NEB SOLN As Ordered ONE (13:23)
[2019-02-22] MEDS ORDERED: ALBUTEROL SULFATE 2.5 MG/0.5 ML INH NEB SOLN INH ONE (13:45)
[2019-02-22] MEDS ORDERED: MIDAZOLAM INJ 2 MG/2 ML VIAL (J2250) As Ordered ONE (13:47)
--- NOTE | 2019-02-22 14:08 | ROOR ---
Patient Name: Moses Espinal Procedure Date: 02/22/2019 1:37 PM Date of : 1960 Age: 58 Room: [facility] Gender: Male Note Status: Finalized Procedure: Upper GI endoscopy Indications: Odynophagia Providers: Sanchez FRANCES MD Referring MD: SAUL NICHOLS MD, David Canales MD Requesting Provider: Medicines: Monitored Anesthesia Care Complications: No immediate complications. Procedure: Pre-Anesthesia Assessment: - The heart rate, respiratory rate, oxygen saturations, blood pressure, adequacy of pulmonary ventilation, and response to care were monitored throughout the procedure. The Endoscope was introduced through the mouth, and advanced to the second part of duodenum. The upper GI endoscopy was accomplished without difficulty. The patient tolerated the procedure well. Findings: The examined esophagus was normal. The entire examined stomach was normal. The examined duodenum was normal. The nasopharynx and oropharynx are abnormal. Impression: - Normal esophagus. - Normal stomach. - Normal examined duodenum. - The oropharynx with smooth pale polypoid structure--this may possibly represent a long uvula--I cannot properly trace stalk with my scope. This is incidental and should be re evaluated by ENT as planned. I do not see any abnormality in posterior pharynx/upper esophagus to account for painful initiation of swallowing. - No specimens collected. Recommendation: - Refer to an ENT specialist as previously scheduled. - Resume Lovenox (enoxaparin) at prior dose today. Sanchez Frances MD Sanchez FRANCES MD 02/22/2019 2:08:17 PM Electronically signed by Sanchez FRANCES MD Number of Addenda: 0 Note Initiated On: 02/22/2019 1:37 PM Estimated Blood Loss: Estimated blood loss: none.
[2019-02-22 14:28] VITALS: BP 123/86
[2019-02-25] MEDS ORDERED: fentaNYL 100 MCG/2 ML INJECTION (J3010) As Ordered ONE (08:24)
[2019-03-12] MEDS ORDERED: ACET1SOL10 PO (09:01)
== END 2019-02-22 15:15 | disposition home or self-care (01) ==
LOC: M OPP 12:36
PROVIDERS: ATTEND Internal Medicine Gastroenterology
DX: J39.2 Other diseases of pharynx (principal); R13.10 Dysphagia, unspecified; J44.9 Chronic obstructive pulmonary disease, unspecified; I51.9 Heart disease, unspecified; G47.30 Sleep apnea, unspecified; Z79.82 Long term (current) use of aspirin; Z79.899 Other long term (current) drug therapy; Z88.3 Allergy status to other anti-infective agents; Z91.041 Radiographic dye allergy status; Z88.5 Allergy status to narcotic agent; F17.210 Nicotine dependence, cigarettes, uncomplicated
CPT/HCPCS: 43235; J2250

== ENCOUNTER 2019-03-13 05:43 | Day surgery (SDC) | payer MEDICARE, MEDICAID ==
[~2019-03-13] VITALS: Ht 175.3 cm; Wt 127.0 kg
[~2019-03-13 05:43] MED LIST changes: -LIDOCAINE 2% INJ 100 MG/5 ML SDV (FOR ANES.) As Ordered ONE; -NS 1,000 ML IV ONE; -PROPOFOL 200 MG/20 ML VIAL As Ordered ONE
[2019-03-13] MEDS ORDERED: LR 1,000 ML IV ONE (06:00)
[2019-03-13] MEDS ORDERED: dexameTHASONE 4 MG/ML 1ML VIAL (J1100) IV ONE (06:00)
[2019-03-13] MEDS ORDERED: OXYMETAZOLINE NASAL SPRAY (AFRIN) As Ordered ONE ×2 (06:54→07:40)
[2019-03-13] MEDS ORDERED: METHYLENE BLUE 0.5% (5MG/ML) 10 ML AMP (PROVAYBLUE)(Q9968 PER 1MG) As Ordered ONE (06:54)
[2019-03-13] MEDS ORDERED: LIDOCAINE W/EPINEPHRINE 1% 20ML VIAL As Ordered ONE (06:54)
[2019-03-13] MEDS ORDERED: LIDOCAINE 2% INJ 100 MG/5 ML SDV (FOR ANES.) As Ordered ONE (06:58)
[2019-03-13] MEDS ORDERED: ROCURONIUM BROMIDE 50 MG/5 ML VIAL As Ordered ONE ×2 (06:58→08:26)
[2019-03-13] MEDS ORDERED: ONDANSETRON 4MG/2ML VIAL (J2405) As Ordered ONE (06:58)
[2019-03-13] MEDS ORDERED: dexameTHASONE 4 MG/ML 1ML VIAL (J1100) As Ordered ONE ×2 (06:58→07:48)
[2019-03-13] MEDS ORDERED: PROPOFOL 200 MG/20 ML VIAL As Ordered ONE (06:58)
[2019-03-13] MEDS ORDERED: fentaNYL 100 MCG/2 ML INJECTION (J3010) As Ordered ONE (07:02)
[2019-03-13] MEDS ORDERED: MIDAZOLAM INJ 2 MG/2 ML VIAL (J2250) As Ordered ONE (07:02)
[2019-03-13] MEDS ORDERED: ETOMIDATE INJ 20MG/10ML VIAL As Ordered ONE (07:12)
[2019-03-13] MEDS ORDERED: SUGAMMADEX SODIUM 500 MG/5 ML VIAL (BRIDION) As Ordered ONE (08:07)
[2019-03-13] MEDS ORDERED: ALBUTEROL SULFATE 2.5 MG/0.5 ML INH NEB SOLN As Ordered ONE (09:05)
[2019-03-13] MEDS ORDERED: fentaNYL 100 MCG/2 ML INJECTION (J3010) IV PRN (09:15)
[2019-03-13] MEDS ORDERED: METOCLOPRAMIDE INJ 10MG/2ML VIAL (J2765) IV PRN (09:15)
[2019-03-13] MEDS ORDERED: ONDANSETRON 4MG/2ML VIAL (J2405) IV PRN (09:15)
[2019-03-13] MEDS ORDERED: LR 1,000 ML IV SCH (09:15)
[2019-03-13] MEDS ORDERED: oxyCODONE 5MG TAB PO PRN (09:15)
[2019-03-13] MEDS ORDERED: ALBUTEROL SULFATE 2.5 MG/0.5 ML INH NEB SOLN INH ONE (09:30)
[2019-03-13 10:40] VITALS: BP 131/70
[2019-03-22] MEDS ORDERED: ACET1SOL10 PO (09:39)
--- NOTE | 2019-04-04 11:29 | RO ---
DATE OF OPERATION: 03/13/2019 PREOPERATIVE DIAGNOSIS: Dysphonia, vocal cord polyps and mass in the upper airway. POSTOPERATIVE DIAGNOSIS: Dysphonia, vocal cord polyps and mass in the upper airway. PROCEDURE PERFORMED: Direct suspension microlaryngoscopy with biopsy of the left and the right vocal cords, and excision of the mass on the base of the epiglottis on the lingual side. SURGEON: David Canales MD SHUTTLE SPOTTER: ANESTHESIA: CLINICAL PREAMBLE: This 58-year-old man with a significant history of smoking presented to the office with recurrent dysphonia. Physical examination revealed vocal cord polyposis. He was also noted to have a mass emanating from the upper airway while he was having a GI endoscopy performed. Management options including the surgery listed above have been discussed. The patient understood and consented to the procedure. OR NARRATION: The patient was identified in preop holding and brought to the operating room in stable condition. In supine position on the operating room table, the patient received general anesthesia followed by orotracheal intubation without incident. The patient was prepped and draped in the usual fashion for the procedure. Bimanual palpation of oral tongue, base of tongue, buccal mucosa, and posterior pharyngeal wall, which showed no evidence of discrete lesion. Upper alveolus was protected. The Dedo-Pilling laryngoscope was introduced to visualize the mucosa of the upper airway. No mucosal ulceration was noted in the oral cavity and oropharynx. A pedunculated lesion was noted around the laryngeal surface at the base of the epiglottis. The aryepiglottic fold was free of mucosal lesions. Piriform sinuses and postcricoid area was free of mucosal lesions as well. The Dedo-Pilling laryngoscope was then suspended on the [place] stand to visualize the vocal cord. Bilateral vocal cord polyposis was noted. Biopsy was then performed on the left and right vocal cords. Hemostasis was achieved by using cottonoid pledgets soaked in Afrin solution. The pedunculated mass was successfully isolated at the base of the epiglottis at the base on the laryngeal side. The mass was successfully excised en bloc and sent for permanent section and pathology as well. Hemostasis was achieved. At the end of the procedure sponge and instrument counts were correct. No complications were encountered. Estimated blood loss was nil. General anesthesia was reversed and the patient was extubated and brought to the recovery room in stable condition.
== END 2019-03-13 10:49 | disposition home or self-care (01) ==
LOC: M SDC 05:43
PROVIDERS: ATTEND Otolaryngology
DX: R49.0 Dysphonia (principal); D14.1 Benign neoplasm of larynx; I25.119 Atherosclerotic heart disease of native coronary artery with unspecified angina pectoris; J38.1 Polyp of vocal cord and larynx; I25.2 Old myocardial infarction; I50.9 Heart failure, unspecified; I11.0 Hypertensive heart disease with heart failure; E78.00 Pure hypercholesterolemia, unspecified; I73.9 Peripheral vascular disease, unspecified; K57.32 Diverticulitis of large intestine without perforation or abscess without bleeding; K21.9 Gastro-esophageal reflux disease without esophagitis; M54.9 Dorsalgia, unspecified; L30.9 Dermatitis, unspecified; F43.10 Post-traumatic stress disorder, unspecified; F41.9 Anxiety disorder, unspecified; F31.9 Bipolar disorder, unspecified; R41.89 Other symptoms and signs involving cognitive functions and awareness; G43.909 Migraine, unspecified, not intractable, without status migrainosus; G62.9 Polyneuropathy, unspecified; F20.9 Schizophrenia, unspecified; J45.909 Unspecified asthma, uncomplicated; J44.9 Chronic obstructive pulmonary disease, unspecified; R06.83 Snoring; G47.33 Obstructive sleep apnea (adult) (pediatric); F17.210 Nicotine dependence, cigarettes, uncomplicated; F12.90 Cannabis use, unspecified, uncomplicated; Z91.041 Radiographic dye allergy status; Z79.899 Other long term (current) drug therapy; Z79.01 Long term (current) use of anticoagulants; Z86.711 Personal history of pulmonary embolism; Z86.73 Personal history of transient ischemic attack (TIA), and cerebral infarction without residual deficits
CPT/HCPCS: 31535; 31541; 88305; J1100; J2250; J2405; J3010; Q9968

== ENCOUNTER → 2019-04-23 | Outpatient (CLI) | payer MEDICARE, MEDICAID ==
[2019-04-23 15:27] LABS: BASO # 0.1 10^3/uL (0.0-0.2); BASO % 0.8 % (0.0-1.0); EOS # 0.2 10^3/uL (0.0-0.5); EOS % 2.1 % (0.0-3.0); HEMATOCRIT 53.4 % (42.0-52.0); HEMOGLOBIN 17.2 g/dl (13.5-17.5); LYMPH # 2.2 10^3/uL (1.5-5.0); LYMPH % 24.4 % (24.0-44.0); MEAN CORPUSCULAR HEMOGLOBIN 30.3 pg (27.0-33.0); MEAN CORPUSCULAR HGB CONC 32.2 g/dl (32.0-36.5); MEAN CORPUSCULAR VOLUME 94.2 fl (80.0-96.0); MONO # 0.8 10^3/uL (0.0-0.8); MONO % 8.6 % (0.0-5.0); NEUTROPHILS # 5.7 10^3/uL (1.5-8.5); NEUTROPHILS % 63.7 % (36.0-66.0); PLATELET COUNT, AUTOMATED 224 10^3/uL (150-450); RED BLOOD COUNT 5.67 10^6/uL (4.30-6.10); WHITE BLOOD COUNT 8.9 10^3/uL (4.0-10.0)
[2019-04-23 15:52] LABS: ALBUMIN 3.8 GM/DL (3.2-5.2); ALT/SGPT 33 U/L (12-78); BILIRUBIN,TOTAL 0.3 MG/DL (0.2-1.0); BLOOD UREA NITROGEN 10 MG/DL (7-18); C REACTIVE PROTEIN QUANTITATIV 1.72 MG/DL (0.00-0.30); CALCIUM LEVEL 9.8 MG/DL (8.8-10.2); CARBON DIOXIDE LEVEL 32 MEQ/L (21-32); CHLORIDE LEVEL 103 MEQ/L (98-107); CREATININE FOR GFR 0.96 MG/DL (0.70-1.30); GLOMERULAR FILTRATION RATE > 60.0 (>49); GLUCOSE, FASTING 87 MG/DL (70-100); SODIUM LEVEL 140 MEQ/L (136-145); TOTAL PROTEIN 7.6 GM/DL (6.4-8.2)
[2019-04-30 00:07] LABS: AMOBARBITAL, URINE Negative (Cutoff=200); BARBITURATES, URINE Positive (Cutoff=200); BUTALBITAL, (GC/MS) URINE 299 ng/mL (Cutoff=200); BUTALBITAL, URINE Positive (.); CANNABINOID, URINE Positive (Cutoff=20); CARBOXY THC (GC/MS) 227 ng/mL (Cutoff=10); CODEINE CONFIRM >10000 ng/mL (Cutoff=100); CODEINE, URINE Positive (.); CREATININE, URINE 218.2 mg/dL (20.0-300.0); HYDROCODONE, URINE Negative (Cutoff=100); HYDROMORPHONE, URINE Negative (Cutoff=100); MORPHINE CONFIRM, URINE 640 ng/mL (Cutoff=100); MORPHINE, URINE Positive (.); OPIATES, URINE Positive ng/mL (Cutoff=300); PENTOBARBITAL, URINE Negative (Cutoff=200); PHENOBARBITAL, URINE Negative (Cutoff=200); SECOBARBITAL, URINE Negative (Cutoff=200)
== END ==
LOC: M LAB 14:20
PROVIDERS: ATTEND Family Medicine
DX: R22.1 Localized swelling, mass and lump, neck (principal); R10.84 Generalized abdominal pain; I67.1 Cerebral aneurysm, nonruptured; G89.4 Chronic pain syndrome
CPT/HCPCS: 36415; 80053; 85025; 86140; G0463

== ENCOUNTER → 2019-05-16 | Outpatient (CLI) | payer MEDICARE, MEDICAID ==
[~2019-05-16] MED LIST changes: +ISOVUE-370 76% 100ML VIAL (Q9967) As Ordered ONE
--- NOTE | 2019-05-16 14:27 | REP ---
CT neck soft tissues: 05/16/2019. Indication: Neck mass. Comparison: 02/21/2019. Technique: Axial images of the neck soft tissues were obtained following the IV administration of 75 ml Isovue 370. Findings: There is no solid soft tissue mass, abnormal fluid collection or cervical lymphadenopathy. No significant vascular abnormalities are detected. The airway is patent. The submandibular, parotid and thyroid glands are unremarkable. The visualized lungs are clear. No significant ocular or intraorbital abnormalities are present. There is a 6 mm left supraclinoid saccular aneurysm which is incompletely evaluated. Impression: No abnormal solid soft tissue neck mass, abnormal fluid collection or cervical lymphadenopathy. 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 Intracranial CTA or MRA is recommended for further evaluation. Electronically Signed by Oleksandr Krueger DO 05/16/2019 02:19 P
== END ==
LOC: M RAD 12:14
PROVIDERS: ATTEND Otolaryngology
DX: R22.1 Localized swelling, mass and lump, neck (principal)
CPT/HCPCS: 70491; Q9967

== ENCOUNTER → 2019-10-31 | Outpatient (CLI) | payer MEDICARE, MEDICAID ==
[~2019-10-31] MED LIST changes: +ASPI-546 PO; -ASPI1TAB15 PO; -ISOVUE-370 76% 100ML VIAL (Q9967) As Ordered ONE; -ROPI2TAB PO; +ROPI2TAB3 PO
[2019-11-01 17:56] LABS: FOLATE 16.7 NG/ML
[2019-11-11 00:07] LABS: LEVETIRACETAM (KEPPRA) 7.7 ug/mL (10.0-40.0); VITAMIN B1 LEVEL WHOLE BLOOD 209.7 nmol/L (66.5-200.0); VITAMIN B6,PYRIDOXAL PHOSPHATE 1.7 ug/L (5.3-46.7); VITAMIN E(ALPHA TOCOPHEROL) 9.8 mg/L (9.0-29.0); VITAMIN E(GAMMA TOCOPHEROL) 1.8 mg/L (0.5-4.9)
== END ==
LOC: M LAB 13:54
PROVIDERS: ATTEND Physician Assistant Medical
DX: G25.3 Myoclonus (principal); E53.1 Pyridoxine deficiency; D51.9 Vitamin B12 deficiency anemia, unspecified

== ENCOUNTER → 2019-10-31 | Outpatient (CLI) | payer MEDICARE, MEDICAID ==
[2019-10-31 14:46] LABS: BASO # 0.1 10^3/uL (0.0-0.2); BASO % 0.6 % (0.0-1.0); EOS # 0.2 10^3/uL (0.0-0.5); EOS % 2.2 % (0.0-3.0); HEMATOCRIT 47.9 % (42.0-52.0); HEMOGLOBIN 16.2 g/dl (13.5-17.5); LYMPH # 1.8 10^3/uL (1.5-5.0); LYMPH % 19.1 % (24.0-44.0); MEAN CORPUSCULAR HEMOGLOBIN 30.8 pg (27.0-33.0); MEAN CORPUSCULAR HGB CONC 33.8 g/dl (32.0-36.5); MEAN CORPUSCULAR VOLUME 91.1 fl (80.0-96.0); MONO # 0.9 10^3/uL (0.0-0.8); MONO % 9.1 % (0.0-5.0); NEUTROPHILS # 6.6 10^3/uL (1.5-8.5); NEUTROPHILS % 68.6 % (36.0-66.0); PLATELET COUNT, AUTOMATED 205 10^3/uL (150-450); RED BLOOD COUNT 5.26 10^6/uL (4.30-6.10); WHITE BLOOD COUNT 9.6 10^3/uL (4.0-10.0)
[2019-10-31 14:48] LABS: APPEARANCE, URINE CLEAR (CLEAR); BACTERIA, URINE AUTO NEGATIVE (NEGATIVE); BILIRUBIN, URINE AUTO NEGATIVE (NEGATIVE); BLOOD, URINE BLOOD NEGATIVE (NEGATIVE); COLOR, URINE STRAW (YELLOW); GLUCOSE, URINE (UA) AUTO NEGATIVE (NEGATIVE); KETONE, URINE AUTO NEGATIVE (NEGATIVE); LEUKOCYTE ESTERASE, URINE AUTO NEGATIVE (NEGATIVE); NITRITE, URINE AUTO NEGATIVE (NEGATIVE); PROTEIN, URINE AUTO NEGATIVE (NEGATIVE); RBC, URINE AUTO 2 /HPF (0-3); SPECIFIC GRAVITY URINE AUTO 1.004 (1.002-1.035); SQUAMOUS EPITHELIAL CELL UR AU 0 /HPF (0-6); UROBILINOGEN, URINE AUTO 0.2 mg/dL (0.0-2.0); WBC, URINE AUTO 0 /HPF (0-3)
[2019-10-31 14:54] LABS: INR 0.92; PROTHROMBIN TIME 12.1 SECONDS (11.8-14.0)
[2019-10-31 15:13] LABS: BLOOD UREA NITROGEN 10 MG/DL (7-18); CALCIUM LEVEL 9.4 MG/DL (8.8-10.2); CARBON DIOXIDE LEVEL 26 MEQ/L (21-32); CHLORIDE LEVEL 106 MEQ/L (98-107); CREATININE FOR GFR 0.82 MG/DL (0.70-1.30); GLOMERULAR FILTRATION RATE > 60.0 (>49); GLUCOSE, FASTING 96 MG/DL (70-100); POTASSIUM SERUM 4.2 MEQ/L (3.5-5.1); SODIUM LEVEL 138 MEQ/L (136-145)
--- NOTE | 2019-10-31 15:32 | REP ---
REASON: Preoperative evaluation. Patient has a history of tobacco abuse. Plain film does not suffice as a low dose CT screening exam of the lungs. Significant nodules can be nonvisualized using plain radiography compared to CT. This is well-documented. COMPARISON: 01/28/2019. FINDINGS: The superior mediastinal structures are midline. The cardiac silhouette is unremarkable in size, shape, and position. The diaphragmatic surfaces of the lungs are regular, and the costophrenic angles are clear. The pulmonary ballesteros are clear. The imaged osseous structures are intact. IMPRESSION: There is no acute cardiopulmonary disease. If clinically relevant, obtain chest CT as described above. Electronically Signed by Colt Corado DO 10/31/2019 05:05 P
--- NOTE | 2019-10-31 19:46 | ECGEPIP ---
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
== END ==
LOC: M LAB 13:44
PROVIDERS: ATTEND Physician Assistant Medical
DX: Z01.818 Encounter for other preprocedural examination (principal); I67.1 Cerebral aneurysm, nonruptured; I45.10 Unspecified right bundle-branch block; Z79.51 Long term (current) use of inhaled steroids; Z79.899 Other long term (current) drug therapy

== ENCOUNTER → 2020-04-08 | Outpatient (CLI) | payer MEDICARE, MEDICAID | LOC: M LAB 12:07 | PROVIDERS: ATTEND Physician Assistant Medical | DX: R51.9 Headache, unspecified (principal); H53.8 Other visual disturbances ==

== ENCOUNTER → 2020-05-29 | Outpatient (CLI) | payer MEDICARE, MEDICAID ==
--- NOTE | 2020-05-29 16:21 | REPVR ---
PROCEDURE INFORMATION: Exam: MR Head Without Contrast Exam date and time: 05/29/2020 2:59 PM Age: 60 years old Clinical indication: Other: Cerebral aneursym, headache TECHNIQUE: Imaging protocol: MR of the head without contrast. COMPARISON: CT Head without contrast 04/02/2018 4:[address] Neck with contrast 05/16/2019 1:34:07 PM FINDINGS: Brain: The brain demonstrates mild, age commensurate volume loss. Multiple punctate foci of left frontal, parietal and occipital high signal on the diffusion-weighted sequence. The lesions appear either slightly low in signal or isointense on the ADC map; most likely represent recent acute or subacute infarcts of slightly variable age, potentially embolic. No evidence of hemorrhagic conversion. The infarcts appears slightly bright on the T2 weighted imaging. The T2 weighted imaging demonstrates scattered punctate foci of increased signal intensity in the deep and subcortical white matter most likely representing trace chronic small vessel ischemic change. Cerebral ventricles: Normal. No ventriculomegaly. Bones/joints: The upper cervical spine is incidentally visualized on the sagittal T1 sequence. There is a congenital fusion at C2-C3. Paranasal sinuses: Normal as visualized. No acute sinusitis. Mastoid air cells: Normal as visualized. No mastoid effusion. Orbital cavity: Unremarkable. Soft tissues: Unremarkable. IMPRESSION: Multiple, punctate, recent infarcts may be embolic. Electronically signed by: Rosemarie Guillory On 05/29/2020 16:20:32 PM
--- NOTE | 2020-05-29 16:27 | REPVR ---
PROCEDURE INFORMATION: Exam: MR Angiogram Head Without Contrast, Arteries Exam date and time: 05/29/2020 2:59 PM Age: 60 years old Clinical indication: Other: Cerebral aneursym, headache TECHNIQUE: Imaging protocol: MR angiogram head without contrast. Exam focused on the arteries. 3D rendering (Not supervised by radiologist): MIP and/or 3D reconstructed images were created by the technologist. COMPARISON: 1. CT Head without contrast 04/02/2018 4:56 PM 2. MRI-Brain without Contrast 05/29/2020 2:05:[address] Neck with contrast 05/16/2019 1:34:[address] Neck with contrast 02/21/2019 9:20:32 AM FINDINGS: ANTERIOR CIRCULATION: Right internal carotid artery: Intracranial segment is patent with no significant stenosis. No aneurysm. Right middle cerebral artery: No occlusion or significant stenosis. No aneurysm. Right anterior cerebral artery: No occlusion or significant stenosis. No aneurysm. Left internal carotid artery: Between the CT neck examinations of 02/21/2019 and 05/16/2019 placement of a left paraclinoid ICA pipeline stent. On this exam, the area manifest as a region of signal dropout. No visible residual aneurysm. Attenuated appearance of the vertical petrous left ICA, probably related to motion artifact. Left middle cerebral artery: No occlusion or significant stenosis. No aneurysm. Left anterior cerebral artery: No occlusion or significant stenosis. No aneurysm. POSTERIOR CIRCULATION: Right vertebral artery: The right vertebral artery is dominant. Patent. No aneurysm. Left vertebral artery: The left vertebral artery is developmentally hypoplastic, ends as PICA. Patent. No aneurysm. Basilar artery: No occlusion or significant stenosis. No aneurysm. Right posterior cerebral artery: Patent. No aneurysm. origin of the right posterior cerebral artery. Left posterior cerebral artery: No occlusion or significant stenosis. No aneurysm. IMPRESSION: 1. Artifact related to a left ICA pipeline stent. 2. No visible residual left ICA aneurysm or intracranial aneurysm or proximal stenosis/occlusion elsewhere. Electronically signed by: Rosemarie Guillory On 05/29/2020 16:26:58 PM
== END ==
LOC: M PLARAD 12:46
PROVIDERS: ATTEND Physician Assistant Medical
DX: R51.9 Headache, unspecified (principal); Z86.79 Personal history of other diseases of the circulatory system

== ENCOUNTER → 2020-06-05 | Outpatient (CLI) | payer MEDICARE, MEDICAID ==
--- NOTE | 2020-06-05 12:37 | REP ---
INDICATION: LOW BACK PAIN AND NECK PAIN. COMPARISON: Comparison is made with prior MRI study of the cervical spine from November 27, 2006. Comparison CT study of the neck May 16, 2019.. TECHNIQUE: Sagittal and axial T1 and T2-weighted scans are acquired in the usual fashion with and without fat saturation. Sequences include spin echo, turbo spin-echo, and STIR imaging sequences. FINDINGS: There is straightening of the normal cervical lordosis. Cervical vertebral body heights are preserved. Alignment is normal. The cervical cord and craniocervical junction are unremarkable on T1 and T2 weighted scans. Axial and sagittal images taken at C2-3 demonstrate minimal facet hypertrophy. There is mild uncovertebral spurring on the right producing mild neural foraminal narrowing at the C2-3 level. Canal size is developmentally small. Midline AP dimension of the thecal sac at C2-3 is 7.6 mm. These findings are felt to be unchanged. At C3-C4, there is a small central focal disc protrusion which effaces the ventral margin of the thecal sac and indents the ventral margin of the cord. This is new from the 2006 prior study. Canal size is developmentally small. Midline AP dimension of the thecal sac is 7.9 mm. No visible foraminal narrowing. At C 4 5, there is mild central disc bulging. No spinal stenosis or foraminal narrowing is seen. At C5-6, there is degenerative disc narrowing and decreased signal intensity. There is a broad-based right posterior focal disc protrusion at C5-6 which contacts the right ventral margin of the cord and effaces the ventral margin of the thecal sac. This is a new finding compared to the 2007 study. there is some ligamentum flavum hypertrophy bilaterally at C5-6. Borderline canal size. No neural foraminal narrowing is seen however. At C6-7 and C7-T1, there is no significant disc finding. IMPRESSION: There is a broad-based right posterior focal disc protrusion at C5-6 and a small central focal disc protrusion at C3-4. Developmentally small canal size again noted most notably at C2-3 and C3-4. Borderline canal size at C5-6. <Electronically signed by Florentin Caraballo > 06/05/20 [id number]
--- NOTE | 2020-06-05 13:04 | REP ---
INDICATION: LOW BACK PAIN AND NECK PAIN. COMPARISON: Comparison MRI lumbar spine March 17, 2017.. TECHNIQUE: Sagittal and axial T1 and T2-weighted scans are acquired in the usual fashion with and without fat saturation. Sequences include spin echo, turbo spin-echo, and STIR imaging sequences. FINDINGS: Lumbar vertebral body heights are preserved. Alignment is normal. There is no evidence of spondylolysis or spondylolisthesis. No extra vertebral abnormality is observed. The conus medullaris tip is normal in position and appearance at L1-2. Axial and sagittal images taken at the L5-S1 disc level demonstrate a small left paracentral focal disc protrusion producing subtle indentation of the thecal sac. This is slightly more prominent than previous exam which showed diffuse bulging. No nerve root compression is seen. There is mild facet hypertrophy bilaterally. Mild degenerative disc narrowing is seen at 5 1. At L4-5, there is mild diffuse disc bulging. Mild central canal stenosis is again noted due to disc bulging in combination with ligamentum flavum and facet hypertrophy. The midline AP dimension of the thecal sac at the L4-5 disc level is 10 mm. No nerve root compression is seen. At L3-4, the posterior disc margin has a normal appearance. There is minimal facet hypertrophy. No central canal stenosis. At L2-3 the, there is mild degenerative narrowing of the disc. No disc protrusion is seen. No central canal stenosis or foraminal narrowing is seen. The L1-2 disc level is unremarkable. IMPRESSION: Left paracentral small focal disc protrusion L5-S1. New finding compared with the prior study. Mild central canal stenosis at L4-5 unchanged from the comparison study. <Electronically signed by Florentin Caraballo > 06/05/20 1300
== END ==
LOC: M PLARAD 09:18
PROVIDERS: ATTEND Physician Assistant Medical
DX: M54.5 Low back pain (principal); M54.2 Cervicalgia

== ENCOUNTER → 2020-07-09 | Outpatient (CLI) | payer MEDICARE, OTHER, MEDICAID ==
[~2020-07-09] MED LIST changes: +ASPI-569 PO; -ASPI81TAEC PO; +ISOVUE-370 76% 100ML VIAL As Ordered ONE
--- NOTE | 2020-07-09 09:47 | REPVR ---
PROCEDURE INFORMATION: Exam: CT Neck With Contrast Exam date and time: 07/09/2020 9:11 AM Age: 60 years old Clinical indication: Pain; Other: Lesion of oral mucosa TECHNIQUE: Imaging protocol: Computed tomography images of the neck with intravenous contrast. Radiation optimization: All CT scans at this facility use at least one of these dose optimization techniques: automated exposure control; mA and/or kV adjustment per patient size (includes targeted exams where dose is matched to clinical indication); or iterative reconstruction. Contrast material: ISOVUE 370; Contrast volume: 75 ml; Contrast route: INTRAVENOUS (IV); COMPARISON: CT Neck with contrast 05/16/2019 1:34 PM FINDINGS: Nasopharynx: Unremarkable. Oropharynx: There is mild thickening of the lingual tonsils, right greater than left. Hypopharynx: Unremarkable. Larynx: Unremarkable. Normal epiglottis. Retropharyngeal space: Unremarkable. Submandibular/Parotid glands: Normal. Glands are normal in size. Thyroid: Normal. No enlarged or calcified nodules. Lymph nodes: Unremarkable. No lymphadenopathy. Trachea: Visualized trachea is unremarkable. Lungs: Unremarkable as visualized. Bones/joints: There is fusion of the C2 and C3 bodies and posterior elements. No acute fracture. Soft tissues: Unremarkable. No significant soft tissue swelling. IMPRESSION: No overt soft tissue abnormality identified. Contrast-enhanced MRI of the face/neck may be of benefit. Electronically signed by: Marifer Canas On 07/09/2020 09:47:29 AM
== END ==
LOC: M RAD 08:48
PROVIDERS: ATTEND Otolaryngology
DX: K13.79 Other lesions of oral mucosa (principal)
CPT/HCPCS: 70491; Q9967

== ENCOUNTER → 2020-09-21 | Outpatient (CLI) | payer MEDICARE, MEDICAID ==
[~2020-09-21] MED LIST changes: +BRIL90TA PO; +BUSP30TA PO; +BUTA-198 PO; +CARB25TA9 PO; +DICL100T89 PO; -ISOVUE-370 76% 100ML VIAL As Ordered ONE; +MORP20SO3 SL; +MSIR30TA PO; +QUET25TA3 PO; +VIIB40TA PO; +[UNRECOGNIZED DRUG - CODE] PO
== END ==
LOC: M LAB 15:36
PROVIDERS: ATTEND Ophthalmology
DX: H47.019 Ischemic optic neuropathy, unspecified eye (principal)

== ENCOUNTER → 2020-09-22 | Outpatient (CLI) | payer MEDICARE, MEDICAID ==
--- NOTE | 2020-09-22 14:36 | REP ---
INDICATION: VISUAL DEFECT *LAB 1ST, XRY 2ND* COMPARISON: None. TECHNIQUE: Real-time ultrasound evaluation and duplex Doppler interrogation of the extracranial carotid vasculature is performed. FINDINGS: There is mild plaquing and narrowing in both carotid bulbs extending into the internal and external carotid arteries. Luminal narrowing is less than 50%. There is no evidence of hemodynamically significant stenosis of either internal carotid artery. Normal flow velocities are seen. The vertebral arteries demonstrate normal direction of flow. RIGHT LEFT Peak systolic velocity ICA 79.0 cm/s 64.8 cm/s End diastolic velocity ICA 24.0 cm/s 26.0 cm/s Peak systolic velocity CCA 94.6 cm/s 83.3cm/s Peak systolic velocity ECA 54.0 cm/s 56.8 cm/s ICA/CCA ratio 0.84 4.78 IMPRESSION: Bilateral luminal narrowing of the internal carotid arteries less than 50%. No evidence of hemodynamically significant stenosis. <Electronically signed by Alvaro Oleary > 09/22/20 [id number]
== END ==
LOC: M RAD 13:16
PROVIDERS: ATTEND Ophthalmology
DX: I65.23 Occlusion and stenosis of bilateral carotid arteries (principal); I77.6 Arteritis, unspecified

== ENCOUNTER → 2021-03-04 | Outpatient (CLI) | payer MEDICARE, MEDICAID ==
[~2021-03-04] MED LIST changes: +MORP1SOL5 SL; -MORP20SO3 SL; +QUET1TAB17 PO; -QUET25TA3 PO
== END ==
LOC: M LABSMTC 11:27
PROVIDERS: ATTEND Pediatrics
DX: Z20.822 Contact with and (suspected) exposure to COVID-19 (principal)
CPT/HCPCS: C9803; U0003

== ENCOUNTER → 2021-06-25 | Outpatient (REF) | LOC: M LABSMTC 09:11 | PROVIDERS: ATTEND Pediatrics | DX: Z20.822 Contact with and (suspected) exposure to COVID-19 (principal) ==

== ENCOUNTER 2021-08-07 12:54 | Emergency (ER) | payer MEDICAID, MEDICARE, OTHER ==
[~2021-08-07] VITALS: Ht 175.3 cm; Wt 120.7 kg
[2021-08-07 12:54] VITALS: BP 128/71
[2021-08-07] MEDS ORDERED: LORA1TAB4 PO (13:00)
== END 2021-08-07 17:16 | disposition left against medical advice (07) ==
LOC: M ED 12:54
DX: Z53.21 Procedure and treatment not carried out due to patient leaving prior to being seen by health care provider (principal)

== ENCOUNTER → 2021-09-08 | Outpatient (CLI) | payer MEDICARE, MEDICAID ==
[~2021-09-08] MED LIST changes: +LORA1TAB4 PO
[2021-09-08 10:59] LABS: BASO # 0.1 10^3/uL (0.0-0.2); BASO % 0.9 % (0.0-1.0); EOS # 0.2 10^3/uL (0.0-0.5); EOS % 2.7 % (0.0-3.0); HEMATOCRIT 44.8 % (42.0-52.0); HEMOGLOBIN 14.8 g/dl (13.5-17.5); LYMPH # 1.4 10^3/uL (1.5-5.0); LYMPH % 17.4 % (24.0-44.0); MEAN CORPUSCULAR HEMOGLOBIN 29.9 pg (27.0-33.0); MEAN CORPUSCULAR VOLUME 90.5 fl (80.0-96.0); MONO # 1.1 10^3/uL (0.0-0.8); MONO % 13.4 % (2.0-8.0); NEUTROPHILS # 5.3 10^3/uL (1.5-8.5); NEUTROPHILS % 65.2 % (36.0-66.0); PLATELET COUNT, AUTOMATED 225 10^3/uL (150-450); RED BLOOD COUNT 4.95 10^6/uL (4.30-6.10); WHITE BLOOD COUNT 8.1 10^3/uL (4.0-10.0)
[2021-09-08 11:26] LABS: ERYTHROCYTE SEDIMENTATION RATE 15 mm/hr (0-20)
== END ==
LOC: M LAB 10:12
PROVIDERS: ATTEND Family Medicine
DX: R22.2 Localized swelling, mass and lump, trunk (principal)

== ENCOUNTER → 2021-09-14 | Outpatient (CLI) | payer MEDICAID, MEDICARE | LOC: M WHC 10:36 | PROVIDERS: ATTEND Family Medicine | DX: R22.2 Localized swelling, mass and lump, trunk (principal) ==

== ENCOUNTER 2021-10-24 09:42 | Emergency (ER) | payer MEDICAID, MEDICARE ==
[~2021-10-24] VITALS: Ht 175.3 cm; Wt 115.0 kg
[~2021-10-24 09:42] MED LIST changes: +ALBU2.5V10 NEB; -ALBU83IN NEB
[2021-10-24] MEDS ORDERED: LIDOCAINE W/EPINEPHRINE 1% 20ML VIAL SC ONE (10:55)
[2021-10-24] MEDS ORDERED: HYDROMORPHONE HCL 0.5 MG/ 0.5 ML SYRINGE (J1170 PER 1) IV PRN (12:45)
[2021-10-24 12:49] LABS: BASO # 0.1 10^3/uL (0.0-0.2); BASO % 0.6 % (0.0-1.0); EOS # 0.3 10^3/uL (0.0-0.5); HEMOGLOBIN 15.6 g/dl (13.5-17.5); LYMPH # 2.3 10^3/uL (1.5-5.0); MEAN CORPUSCULAR HEMOGLOBIN 30.6 pg (27.0-33.0); MEAN CORPUSCULAR HGB CONC 33.2 g/dl (32.0-36.5); MEAN CORPUSCULAR VOLUME 92.2 fl (80.0-96.0); MONO # 0.8 10^3/uL (0.0-0.8); NEUTROPHILS # 5.1 10^3/uL (1.5-8.5); PLATELET COUNT, AUTOMATED 258 10^3/uL (150-450); WHITE BLOOD COUNT 8.6 10^3/uL (4.0-10.0)
[2021-10-24 13:07] LABS: BLOOD UREA NITROGEN 10 MG/DL (7-18); C REACTIVE PROTEIN QUANTITATIV 2.66 MG/DL (0.00-0.30); CALCIUM LEVEL 9.4 MG/DL (8.8-10.2); CARBON DIOXIDE LEVEL 26 MEQ/L (21-32); CHLORIDE LEVEL 107 MEQ/L (98-107); CREATININE FOR GFR 0.63 MG/DL (0.70-1.30); GLOMERULAR FILTRATION RATE > 60.0 (>49); GLUCOSE, FASTING 109 MG/DL (70-100); POTASSIUM SERUM 5.6 MEQ/L (3.5-5.1); SODIUM LEVEL 138 MEQ/L (136-145)
[2021-10-24 13:11] LABS: ERYTHROCYTE SEDIMENTATION RATE 18 mm/hr (0-20)
[2021-10-24] MEDS ORDERED: MORPHINE 4 MG/ML 1ML VIAL/SYRINGE IV ONE (16:55)
[2021-10-24 17:07] VITALS: BP 142/75
[2021-10-28] MEDS ORDERED: [UNRECOGNIZED DRUG - CODE] PO (11:08)
== END 2021-10-24 17:09 | disposition home or self-care (01) ==
LOC: M ED 09:42
DX: M79.81 Nontraumatic hematoma of soft tissue (principal); R91.1 Solitary pulmonary nodule; D44.10 Neoplasm of uncertain behavior of unspecified adrenal gland; I10 Essential (primary) hypertension; J44.9 Chronic obstructive pulmonary disease, unspecified; Z86.79 Personal history of other diseases of the circulatory system; Z91.041 Radiographic dye allergy status; Z79.51 Long term (current) use of inhaled steroids; Z79.899 Other long term (current) drug therapy
CPT/HCPCS: 71250; 74176; 80048; 85025; 85652; 86140; 96374; 96375; 99284; J1170; J2270

== ENCOUNTER → 2021-11-25 | Outpatient (CLI) | payer MEDICAID, MEDICARE, OTHER ==
[~2021-11-25] MED LIST changes: +[UNRECOGNIZED DRUG - CODE] PO
== END ==
LOC: M PLARAD 12:50
PROVIDERS: ATTEND Family Medicine
DX: R91.8 Other nonspecific abnormal finding of lung field (principal); E27.9 Disorder of adrenal gland, unspecified
CPT/HCPCS: 78815; A9552